=== PATIENT | male | born 1985 | race Caucasian/White ===

== ENCOUNTER 2021-03-12 11:40 | Emergency (ER) | payer OTHER ==
[2021-03-12 11:49] VITALS: TEMP 98
--- NOTE | 2021-03-12 12:28 | XR ---
EXAMINATION TYPE: XR chest 2V DATE OF EXAM: 03/12/2021 COMPARISON: NONE HISTORY: cough x 1 month TECHNIQUE: Single frontal view of the chest is obtained. FINDINGS: Right middle lobe infiltrate noted. Correlate for pneumonia. Follow-up until resolution advised. Lauri tional nodular density left upper lobe versus summation. The cardiac silhouette size is within normal limits. The osseous structures are intact. IMPRESSION: 1. Right middle lobe infiltrate noted. Correlate for pneumonia. Follow-up until resolution advised. Additional nodular density left upper lobe versus summation
--- NOTE | 2021-03-12 13:05 | ED ---
URI HPI - General Chief Complaint: Upper Respiratory Infection Stated Complaint: Cough Time Seen by Provider: 03/12/21 11:53 Source: patient, RN notes reviewed Mode of arrival: ambulatory Limitations: no limitations - History of Present Illness Initial Comments: Patient is a 35-year-old male presenting to the emergency Department with complaints of having a cough over the past 3-4 weeks. He states is not getting any better and he is concerned. Patient states he has been tested for Covid at least 3 times in the past month, they were all negative. He denies any fevers or chills, some mild shortness of breath when his cough gets really bad. At rest he has no shortness of breath. He was a former smoker, quit about a year ago. Denies chest pains, no abdominal pain, no nausea or vomiting. Patient denies any significant congestion, no sore throat, no ear pain. [place], they did not do an x-ray, he has not been treated for this in the past. He has no further complaints. His vitals are stable upon arrival. - Related Data Previous Rx's Medication Instructions Recorded Azithromycin [Zithromax Z-pack (6 0 mg PO DIRECTED #6 tab 03/12/21 tabs)] predniSONE 50 mg PO DAILY 5 Days #5 tab 03/12/21 Allergies Allergy/AdvReac Type Severity Reaction Status Date / Time No Known Allergies Allergy Verified 03/12/21 11:45 Review of Systems ROS Statement: Those systems with pertinent positive or pertinent negative responses have been documented in the HPI. ROS Other: All systems not noted in ROS Statement are negative. Past Medical History Past Medical History: No Reported History History of Any Multi-Drug Resistant Organisms: None Reported Past Surgical History: No Surgical Hx Reported Past Psychological History: Depression Smoking Status: Never smoker Past Alcohol Use History: None Reported Past Drug Use History: None Reported General Exam - General Exam Comments Initial Comments: GENERAL: Patient is well-developed and well-nourished. Patient is nontoxic and in no acute distress. HEAD: Atraumatic, normocephalic. EYES: Pupils equal round and reactive to light, extraocular movements intact, sclera anicteric, conjunctiva are normal. Eyelids were unremarkable. ENT: TMs normal, nares patent, oropharynx clear without exudates. Moist mucous membranes. NECK: Normal range of motion, supple without lymphadenopathy or JVD. LUNGS: Unlabored respirations. Breath sounds clear to auscultation bilaterally and equal. No wheezes rales or rhonchi. Dry cough noted. HEART: Regular rate and rhythm without murmurs, rubs or gallops. ABDOMEN: Soft, nontender, normoactive bowel sounds. No guarding, no rebound. No masses appreciated. : Deferred MUSCULOSKELETAL: Normal extremities with adequate strength and normal range of motion, no pitting or edema. No clubbing or cyanosis. NEUROLOGICAL: Patient is alert and oriented x 3. SKIN: Warm, Dry, normal turgor, no rashes or lesions noted. Limitations: no limitations Course Vital Signs 03/12/21 03/12/21 11:46 12:06 Temperature 98 F Pulse Rate 120 H Respiratory 18 26 H Rate Blood Pressure 105/66 O2 Sat by Pulse 99 Oximetry Medical Decision Making - Medical Decision Making Patient is a 35-year-old male here with a cough for the past 3-4 weeks. He has been tested many times for Covid, they are all negative. His vitals are stable upon arrival, exam is unremarkable. Chest x-ray shows right middle lobe infiltrate, correlate for pneumonia. I discussed these findings with the patient. Patient will be given a prescription for antibiotics, steroids. Here he has an inhaler at home. He will follow up if his symptoms persist. He is in agreement with this plan and care and he is stable for discharge. Disposition Clinical Impression: Pneumonia, Cough Disposition: HOME SELF-CARE Condition: Stable Instructions (If sedation given, give patient instructions): Pneumonia (ED) Additional Instructions: Please return to the Emergency Department if symptoms worsen or any other concerns. Take antibiotics and steroids as prescribed. Use inhaler as needed for shortness of breath or increased cough. Prescriptions: predniSONE 50 mg PO DAILY 5 Days #5 tab Azithromycin [Zithromax Z-pack (6 tabs)] 0 mg PO DIRECTED #6 tab Is patient prescribed a controlled substance at d/c from ED?: No Referrals: None,Stated [Primary Care Provider] - 1-2 days Time of Disposition: 13:05
[2021-03-12 13:06] VITALS: BP 119/76; PULSE 98; RESP 18
== END 2021-03-12 13:12 | disposition home or self-care (01) ==
LOC: EC 11:40
DX: J18.9 Pneumonia, unspecified organism (principal); F32.9 Major depressive disorder, single episode, unspecified; Z87.891 Personal history of nicotine dependence
CPT/HCPCS: 71046; 99284

== ENCOUNTER 2021-03-18 12:37 | Emergency (ER) | payer OTHER ==
[2021-03-18 13:17] VITALS: BP 96/57; PULSE 100; RESP 20; TEMP 99.3
--- NOTE | 2021-03-18 14:27 | XR ---
EXAMINATION TYPE: XR chest 2V DATE OF EXAM: 03/18/2021 COMPARISON: 03/12/2021 HISTORY: 35-year-old male with cough and congestion TECHNIQUE: PA and lateral views FINDINGS: Heart normal size. Aorta and pulmonary vasculature are within normal limits. Focal rounded density le ft upper lobe. Additional smaller vague possible nodular densities right upper lobe. Bandlike patchy density right lower lung masslike improvement. No pleural effusion. IMPRESSION: 1. Residual band like infiltrate right lower lung shows slight improvement from prior. An area of res idual pneumonia not excluded. 2. Possible abnormal nodule in the left upper lobe and possible smaller nodules in the right upper lo be. Correlate for potential atypical fungal or mycobacterial infections. Follow-up with CT after nikki tment.
--- NOTE | 2021-03-18 14:38 | ED ---
URI HPI - General Chief Complaint: Upper Respiratory Infection Stated Complaint: Revisit Cough Time Seen by Provider: 03/18/21 13:42 Source: patient, RN notes reviewed Mode of arrival: ambulatory Limitations: no limitations - History of Present Illness Initial Comments: Patient is a 35-year-old male that presents to the emergency department complaining of residual cough. He notes he was seen approximately a week ago was diagnosed pneumonia and given a Z-Logan and steroids to help with inflammation. Patient notes that he was feeling better on Z-Logan but once he stopped cough came back. He was otherwise well-appearing. He denied any other issues or complaints. He denied chest pain shortness of breath headache nausea vomiting diarrhea constipation fever fatigue chills. - Related Data Previous Rx's Medication Instructions Recorded Azithromycin [Zithromax Z-pack (6 0 mg PO DIRECTED #6 tab 03/12/21 tabs)] predniSONE 50 mg PO DAILY 5 Days #5 tab 03/12/21 Levofloxacin [Levaquin] 750 mg PO DAILY 5 Days #5 tab 03/18/21 Allergies Allergy/AdvReac Type Severity Reaction Status Date / Time No Known Allergies Allergy Verified 03/18/21 13:14 Review of Systems ROS Statement: Those systems with pertinent positive or pertinent negative responses have been documented in the HPI. ROS Other: All systems not noted in ROS Statement are negative. Past Medical History Past Medical History: No Reported History History of Any Multi-Drug Resistant Organisms: None Reported Past Surgical History: No Surgical Hx Reported Past Psychological History: Anxiety, Depression Smoking Status: Never smoker Past Alcohol Use History: None Reported Past Drug Use History: None Reported General Exam Limitations: no limitations General appearance: alert, in no apparent distress Head exam: Present: atraumatic, normocephalic, normal inspection Eye exam: Present: normal appearance, PERRL, EOMI. Absent: scleral icterus, conjunctival injection, periorbital swelling ENT exam: Present: normal exam, mucous membranes moist Neck exam: Present: normal inspection Respiratory exam: Present: normal lung sounds bilaterally. Absent: respiratory distress, wheezes, rales, rhonchi, stridor Cardiovascular Exam: Present: regular rate, normal rhythm, normal heart sounds. Absent: systolic murmur, diastolic murmur, rubs, gallop, clicks GI/Abdominal exam: Present: soft, normal bowel sounds. Absent: distended, tenderness, guarding, rebound, rigid Extremities exam: Present: normal inspection, full ROM, normal capillary refill. Absent: tenderness, pedal edema, joint swelling, calf tenderness Neurological exam: Present: alert, oriented X3 Psychiatric exam: Present: normal affect, normal mood Skin exam: Present: warm, dry, intact, normal color. Absent: rash Course Vital Signs 03/18/21 13:14 Temperature 99.3 F Pulse Rate 100 Respiratory 20 Rate Blood Pressure 96/57 O2 Sat by Pulse 97 Oximetry Medical Decision Making - Medical Decision Making 35-year-old male complaining of residual cough after being treated for pneumonia last week. Chest x-ray ordered. Chest x-ray shows slight improvement of right lower lobe infiltrate. But also shows several suspicious nodules. Patient will be sent more antibiotics to pharmacy. Case discussed with Dr. Encarnacion, patient can discharge home. - Radiology Data Radiology results: report reviewed, image reviewed Chest x-ray: Residual bandlike infiltrate right lower lobe shows slight improvement from prior. An area of residual pneumonia not excluded. Possible abnormal nodule in the left upper lobe and possible smaller nodules the right upper lobe. Correlate for potential atypical fungal or mycobacterial infections. Follow-up with CT after treatment. Disposition Clinical Impression: Pneumonia Disposition: HOME SELF-CARE Condition: Stable Instructions (If sedation given, give patient instructions): Bacterial Pneumonia (ED) Additional Instructions: Please return to the Emergency Department if symptoms worsen or any other concerns. Follow-up with primary care 1-2 days. Take antibiotics as prescribed until complete. Take [id number] cough medicine as needed. Is patient prescribed a controlled substance at d/c from ED?: No Referrals: None,Stated [Primary Care Provider] - 1-2 days Time of Disposition: 14:38
== END 2021-03-18 15:00 | disposition home or self-care (01) ==
LOC: EC 12:37
DX: J18.9 Pneumonia, unspecified organism (principal); Z79.52 Long term (current) use of systemic steroids
CPT/HCPCS: 71046; 99283

== ENCOUNTER 2021-03-18 22:23 | Inpatient (IN) | payer OTHER ==
[2021-03-18] MEDS ORDERED: SODIUM CHLORIDE 0.9% 1,000 ML IV STA (23:13)
[2021-03-18] MEDS ORDERED: ACETAMINOPHEN TAB 500 MG TAB PO STA (23:14)
--- NOTE | 2021-03-18 23:24 | ED ---
General Adult HPI - General Chief complaint: Upper Respiratory Infection Stated complaint: Revisit SOB, Back Pain Time Seen by Provider: 03/18/21 23:01 Source: patient, RN notes reviewed Mode of arrival: wheelchair Limitations: no limitations - History of Present Illness Initial comments: This a 35-year-old male presents emergency Department chief complaint shortness breath. Patient states started having cough congestion 3-4 weeks ago. Patient states that [place] Patient states he was given some cough suppressants. Patient states he took a course of antibiotics last week for diagnosed pneumonia. Patient seen here again this morning was given from the antibiotics but states throughout the day he had worsening symptoms, increasing shortness of breath, upper back discomfort. Patient states he does have a history IV drug use. Patient denies abdominal pain. No history of cardiac disease no headache or dizziness. Patient did take ibuprofen prior arrival. - Related Data Previous Rx's Medication Instructions Recorded Azithromycin [Zithromax Z-pack (6 0 mg PO DIRECTED #6 tab 03/12/21 tabs)] predniSONE 50 mg PO DAILY 5 Days #5 tab 03/12/21 Levofloxacin [Levaquin] 750 mg PO DAILY 5 Days #5 tab 03/18/21 Allergies Allergy/AdvReac Type Severity Reaction Status Date / Time No Known Allergies Allergy Verified 03/18/21 22:46 Review of Systems ROS Statement: Those systems with pertinent positive or pertinent negative responses have been documented in the HPI. ROS Other: All systems not noted in ROS Statement are negative. Past Medical History Past Medical History: No Reported History History of Any Multi-Drug Resistant Organisms: None Reported Past Surgical History: No Surgical Hx Reported Past Psychological History: Anxiety, Depression Smoking Status: Never smoker Past Alcohol Use History: None Reported Past Drug Use History: None Reported General Exam Limitations: no limitations General appearance: alert, in no apparent distress Head exam: Present: atraumatic, normocephalic, normal inspection Eye exam: Present: normal appearance, PERRL, EOMI. Absent: scleral icterus, conjunctival injection, periorbital swelling ENT exam: Present: normal exam, normal oropharynx, mucous membranes moist, TM's normal bilaterally Neck exam: Present: normal inspection, full ROM. Absent: tenderness, meningismus, lymphadenopathy Respiratory exam: Present: normal lung sounds bilaterally. Absent: respiratory distress, wheezes, rales, rhonchi, stridor Cardiovascular Exam: Present: normal rhythm, tachycardia, normal heart sounds. Absent: systolic murmur, diastolic murmur, rubs, gallop, clicks GI/Abdominal exam: Present: soft, normal bowel sounds. Absent: distended, tenderness, guarding, rebound, rigid Neurological exam: Present: alert Skin exam: Present: diaphoretic Course Vital Signs 03/18/21 22:46 Temperature 100.4 F H Pulse Rate 147 H Respiratory 22 Rate Blood Pressure 120/74 O2 Sat by Pulse 94 L Oximetry Medical Decision Making - Medical Decision Making CT shows evidence of Taking lesion, multifocal pneumonia, concern for possibility of septic emboli. Patient was started on broad-spectrum antibiotics including Unasyn, vancomycin. Patient will be admitted for pulmonary consultation, infectious disease consultation. - Lab Data Result diagrams: 03/18/21 23:27 03/18/21 23:27 Lab Results 03/18/21 03/18/21 03/18/21 Range/Units 23:27 23:27 23:27 WBC 14.7 H (3.8-10.6) k/uL RBC 4.13 L (4.30-5.90) m/uL Hgb 10.4 L (13.0-17.5) gm/dL Hct 32.9 L (39.0-53.0) % MCV 79.8 L (80.0-100.0) fL MCH 25.2 (25.0-35.0) pg MCHC 31.6 (31.0-37.0) g/dL RDW 14.2 (11.5-15.5) % Plt Count 182 (150-450) k/uL MPV 7.9 Neutrophils % 82 % Lymphocytes % 10 % Monocytes % 4 % Eosinophils % 1 % Basophils % 0 % Neutrophils # 12.1 H (1.3-7.7) k/uL Lymphocytes # 1.5 (1.0-4.8) k/uL Monocytes # 0.6 (0-1.0) k/uL Eosinophils # 0.1 (0-0.7) k/uL Basophils # 0.0 (0-0.2) k/uL PT 11.1 (9.0-12.0) sec INR 1.1 (<1.2) APTT 27.1 (22.0-30.0) sec D-Dimer 0.88 H (<0.60) mg/L FEU Sodium 132 L (137-145) mmol/L Potassium 4.4 (3.5-5.1) mmol/L Chloride 98 (98-107) mmol/L Carbon Dioxide 26 (22-30) mmol/L Anion Gap 8 mmol/L BUN 24 H (9-20) mg/dL Creatinine 0.78 (0.66-1.25) mg/dL Est GFR (CKD-EPI)AfAm >90 (>60 ml/min/1.73 sqM) Est GFR (CKD-EPI)NonAf >90 (>60 ml/min/1.73 sqM) Glucose 128 H (74-99) mg/dL Plasma Lactic Acid Ousmane (0.7-2.0) mmol/L Calcium 8.6 (8.4-10.2) mg/dL Magnesium 1.8 (1.6-2.3) mg/dL Total Bilirubin 0.4 (0.2-1.3) mg/dL AST 25 (17-59) U/L ALT 47 (4-49) U/L Alkaline Phosphatase 112 (38-126) U/L Troponin I (0.000-0.034) ng/mL Total Protein 6.4 (6.3-8.2) g/dL Albumin 3.0 L (3.5-5.0) g/dL Coronavirus (PCR) (Not Detectd) 03/18/21 03/18/21 03/18/21 Range/Units 23:27 23:27 23:41 WBC (3.8-10.6) k/uL RBC (4.30-5.90) m/uL Hgb (13.0-17.5) gm/dL Hct (39.0-53.0) % MCV (80.0-100.0) fL MCH (25.0-35.0) pg MCHC (31.0-37.0) g/dL RDW (11.5-15.5) % Plt Count (150-450) k/uL MPV Neutrophils % % Lymphocytes % % Monocytes % % Eosinophils % % Basophils % % Neutrophils # (1.3-7.7) k/uL Lymphocytes # (1.0-4.8) k/uL Monocytes # (0-1.0) k/uL Eosinophils # (0-0.7) k/uL Basophils # (0-0.2) k/uL PT (9.0-12.0) sec INR (<1.2) APTT (22.0-30.0) sec D-Dimer (<0.60) mg/L FEU Sodium (137-145) mmol/L Potassium (3.5-5.1) mmol/L Chloride (98-107) mmol/L Carbon Dioxide (22-30) mmol/L Anion Gap mmol/L BUN (9-20) mg/dL Creatinine (0.66-1.25) mg/dL Est GFR (CKD-EPI)AfAm (>60 ml/min/1.73 sqM) Est GFR (CKD-EPI)NonAf (>60 ml/min/1.73 sqM) Glucose (74-99) mg/dL Plasma Lactic Acid Ousmane 1.4 (0.7-2.0) mmol/L Calcium (8.4-10.2) mg/dL Magnesium (1.6-2.3) mg/dL Total Bilirubin (0.2-1.3) mg/dL AST (17-59) U/L ALT (4-49) U/L Alkaline Phosphatase (38-126) U/L Troponin I <0.012 (0.000-0.034) ng/mL Total Protein (6.3-8.2) g/dL Albumin (3.5-5.0) g/dL Coronavirus (PCR) Not Detected (Not Detectd) Critical Care Time Critical Care Time: Yes Total Critical Care Time: 35 Disposition Clinical Impression: Cavitating mass of lung, Multifocal pneumonia, Failure of outpatient treatment Disposition: ADMITTED IP TO THIS [facility] Condition: Serious Referrals: None,Stated [Primary Care Provider] - 1-2 days
[2021-03-18 23:53] LABS: Basophils % (A) 0 %; Eosinophils # (A) 0.1 k/uL (0-0.7); Eosinophils % (A) 1 %; HCT 32.9 % (39.0-53.0); HGB 10.4 gm/dL (13.0-17.5); Lymphocytes # (A) 1.5 k/uL (1.0-4.8); Lymphocytes % (A) 10 %; MCH 25.2 pg (25.0-35.0); MCHC 31.6 g/dL (31.0-37.0); MCV 79.8 fL (80.0-100.0); Mean Platelet Volume 7.9; Monocytes # (A) 0.6 k/uL (0-1.0); Monocytes % (A) 4 %; Neutrophils # (A) 12.1 k/uL (1.3-7.7); Neutrophils % (A) 82 %; Platelet Count 182 k/uL (150-450); RBC 4.13 m/uL (4.30-5.90); RDW 14.2 % (11.5-15.5); WBC 14.7 k/uL (3.8-10.6)
[2021-03-18 23:59] LABS: ALT 47 U/L (4-49); AST 25 U/L (17-59); African American GFR (CKD) >90 (>60 ml/min/1.73 sqM); Alkaline Phosphatase 112 U/L (38-126); Anion Gap 8 mmol/L; Blood Urea Nitrogen 24 mg/dL (9-20); Calcium 8.6 mg/dL (8.4-10.2); Carbon Dioxide 26 mmol/L (22-30); Chloride 98 mmol/L (98-107); Glucose 128 mg/dL (74-99); Magnesium 1.8 mg/dL (1.6-2.3); Non-African American GFR(CKD) >90 (>60 ml/min/1.73 sqM); Potassium 4.4 mmol/L (3.5-5.1); Sodium 132 mmol/L (137-145); Total Bilirubin 0.4 mg/dL (0.2-1.3); Total Protein 6.4 g/dL (6.3-8.2)
[2021-03-19 00:02] LABS: INR 1.1 (<1.2); Partial Thromboplastin Time 27.1 sec (22.0-30.0); Prothrombin Time 11.1 sec (9.0-12.0)
--- NOTE | 2021-03-19 00:48 | CT ---
EXAMINATION TYPE: CT chest angio for PE DATE OF EXAM: 03/18/2021 COMPARISON: None HISTORY: Pneumonia. SOB/pain. CT DLP: 326.8 mGycm Automated exposure control for dose reduction was used. CONTRAST: Performed with IV Contrast, patient injected with 70ml mL of Isovue 370. There are 3-D post processed images. There is irregular noncalcified 2.4 cm nodular infiltrate in the posterior segment of the left upper lobe adjacent to the major fissure. There is a similar smaller 1.5 cm nodular density in the posterio r aspect right upper lobe. There is 1 cm subpleural nodule lateral aspect of the right upper lobe. Th ere is patchy nodular infiltrate in the right middle lobe some consolidation and atelectasis. There i s a 1 cm cavitating nodule in the left lower lobe adjacent to the diaphragm. There is 1.5 cm cavitati ng nodule left lower lobe adjacent to the diaphragm. There is some patchy airspace infiltrate left lo wer lobe. There is 1 cm cavitating nodule medial aspect left lower lobe. There is no mediastinal adenopathy. There is 1.2 cm pretracheal lymph node. There are no hilar masses . There is normal contrast opacification of the pulmonary arteries. Thoracic spine is intact. There i s no compression fracture. Sternum shows an old healed fracture of the body. Visualized upper abdomin al soft tissues are intact. IMPRESSION: No evidence of pulmonary embolism. Multiple cavitating infiltrates in the upper lobes bilaterally. Airspace infiltrate and atelectasis r ight middle lobe and left lower lobe. I would consider possibilities of multiple septic emboli and metastatic disease.
[2021-03-19] MEDS ORDERED: VANCOMYCIN IV PER PHARMACY 1 EACH MISC MISCELLANE PRN (01:05)
[2021-03-19] MEDS ORDERED: AMPICILLIN-SULBACTAM 3 GM in SODIUM CHLORIDE 0.9% 100 ML IVPB STA (01:05)
[2021-03-19] MEDS ORDERED: ONDANSETRON 4 MG/2 ML VIAL IVP PRN (01:08)
[2021-03-19] MEDS ORDERED: NALOXONE 0.4 MG/ML 1 ML VIAL IV PRN (01:08)
[2021-03-19] MEDS ORDERED: VANCOMYCIN 1,500 MG in SODIUM CHLORIDE 0.9% 250 ML IVPB ONE (01:30)
[2021-03-19] MEDS: SODIUM CHLORIDE 0.9% 1,000 ML IV SCH ×3 (01:54→15:35)
[2021-03-19] MEDS: IBUPROFEN 400 MG TAB PO PRN ×2 (07:22→13:34)
[2021-03-19] MEDS: AMPICILLIN-SULBACTAM 3 GM in SODIUM CHLORIDE 0.9% 100 ML IVPB SCH ×3 (07:23→20:33)
[2021-03-19 10:56] LABS: Hepatitis A Antibody IgM Nonreactive (Nonreactive); Hepatitis B Core IgM Nonreactive (Nonreactive); Hepatitis B Surface Antigen Nonreactive (Nonreactive); Hepatitis C IgG Antibody Reactive (Nonreactive)
[2021-03-19] MEDS: VANCOMYCIN 1,500 MG in SODIUM CHLORIDE 0.9% 250 ML IVPB SCH ×2 (11:34→18:11)
--- NOTE | 2021-03-19 11:54 | P.HPIM ---
History of Present Illness 35-year-old male was admitted for sepsis shortness of breath fever cough with sputum production. Patient was at to drug rehabilitation program patient does have history of IV drug use. Patient had a CT of the chest which showed pos sibility of septic emboli along with the cavitary lesion. Echocardiac exam is being obtained patient is on IV vancomycin at this time patient will also started on Unasyn, infectious disease was consulted blood cultures were obtained sputum cultures will be obtained as well. Patient was tested for hepatitis C at the rehab facility and as per the patient patient is negative for hep C. Patient does have leukocytosis and fever. Patient was also complaining of chest pain in the left back.. CT angios the chest did not show any pulmonary embolism and is secondary to pneumonia. REVIEW OF SYSTEMS: CONSTITUTIONAL: As mentioned interval history HEENT: No recent visual problems or hearing problems. Denied any sore throat. CARDIOVASCULAR: No chest pain, orthopnea, PND, no palpitations, no syncope. PULMONARY: As per HPI GASTROINTESTINAL: No diarrhea, no nausea, no vomiting, no abdominal pain. NEUROLOGICAL: No headaches, no weakness, no numbness. HEMATOLOGICAL: Denies any bleeding or petechiae. GENITOURINARY: Denies any burning micturition, frequency, or urgency. MUSCULOSKELETAL/RHEUMATOLOGICAL: Denies any joint pain, swelling, or any muscle pain. ENDOCRINE: Denies any polyuria or polydipsia. The rest of the 14-point review of systems is negative. PHYSICAL EXAMINATION: GENERAL: The patient is alert and oriented x3, not in any acute distress. Well developed, well nourished. Patient is diaphoretic HEENT: Pupils are round and equally reacting to light. EOMI. No scleral icterus. No conjunctival pallor. Normocephalic, atraumatic. No pharyngeal erythema. No thyromegaly. Significant nasal congestion and URI CARDIOVASCULAR: S1 and S2 present. No murmurs, rubs, or gallops. PULMONARY: Chest is clear to auscultation, no wheezing or crackles. ABDOMEN: Soft, nontender, nondistended, normoactive bowel sounds. No palpable organomegaly. MUSCULOSKELETAL: No joint swelling or deformity. EXTREMITIES: No cyanosis, clubbing, or pedal edema. NEUROLOGICAL: Gross neurological examination did not reveal any focal deficits. SKIN: No rashes. Assessment and plan -Sepsis secondary to possible enteritis and patient does have multiple septic emboli in the lungs along with the cavitary lesion. Can use vancomycin probably Unasyn is not needed but I'll let infectious disease evaluated the patient before this is discontinued. Transthoracic echo cardiac exam was obtained. -Hyponatremia secondary to sepsis continue with IV fluids -History of IV drug use: Patient has been sober for the last 45 days. Patient did have a repeat hepatitis panel and is positive for hep C. -Depression DVT prophylaxis: Ambulation Past Medical History Past Medical History: No Reported History History of Any Multi-Drug Resistant Organisms: None Reported Past Surgical History: No Surgical Hx Reported Past Psychological History: Anxiety, Depression Smoking Status: Never smoker Past Alcohol Use History: None Reported Past Drug Use History: Heroin, IV Drug Use, Marijuana, Methamphetamine Additional Drug Use History / Comment(s): Last drug use 1.5 months ago Medications and Allergies Home Medications Medication Instructions Recorded Confirmed Type Levofloxacin [Levaquin] 750 mg PO DAILY 5 Days #5 tab 03/18/21 03/19/21 Rx Allergies Allergy/AdvReac Type Severity Reaction Status Date / Time No Known Allergies Allergy Verified 03/19/21 06:18 Physical Exam Vitals: Vital Signs Temp Pulse Pulse Resp BP BP Pulse Ox 03/19/21 08:11 97.8 F 86 18 104/55 98 03/19/21 04:01 97.3 F L 73 16 94/59 97 03/19/21 03:10 98.5 F 93 20 117/73 100 03/19/21 01:44 97.4 F L 91 19 100/55 03/18/21 22:46 100.4 F H 147 H 22 120/74 94 L Intake and Output 03/18/21 03/19/21 03/19/21 22:59 06:59 14:59 Intake Total 250 Balance 250 Intake: Intake, IV Titration 250 Amount Vancomycin 1,500 mg In 250 Sodium Chloride 0.9% 250 ml @ 125 mls/hr IVPB Q8H [facility] Rx#:[id number] Other: Weight 77.111 kg 77.111 kg Results CBC & Chem 7: 03/18/21 23:27 03/18/21 23:27 Labs: Abnormal Lab Results - Last 24 Hours (Table) 03/18/21 03/18/21 03/18/21 Range/Units 23:27 23:27 23:27 WBC 14.7 H (3.8-10.6) k/uL RBC 4.13 L (4.30-5.90) m/uL Hgb 10.4 L (13.0-17.5) gm/dL Hct 32.9 L (39.0-53.0) % MCV 79.8 L (80.0-100.0) fL Neutrophils # 12.1 H (1.3-7.7) k/uL D-Dimer 0.88 H (<0.60) mg/L FEU Sodium 132 L (137-145) mmol/L BUN 24 H (9-20) mg/dL Glucose 128 H (74-99) mg/dL Albumin 3.0 L (3.5-5.0) g/dL Hep C IgG Ab (Nonreactive) 03/19/21 Range/Units 01:34 WBC (3.8-10.6) k/uL RBC (4.30-5.90) m/uL Hgb (13.0-17.5) gm/dL Hct (39.0-53.0) % MCV (80.0-100.0) fL Neutrophils # (1.3-7.7) k/uL D-Dimer (<0.60) mg/L FEU Sodium (137-145) mmol/L BUN (9-20) mg/dL Glucose (74-99) mg/dL Albumin (3.5-5.0) g/dL Hep C IgG Ab Reactive A (Nonreactive) Thrombosis Risk Factor Assmnt - Choose All That Apply Any of the Below Risk Factors Present?: No
--- NOTE | 2021-03-19 11:57 | ECHOF ---
Referral Reason:pain, endocarditis MEASUREMENTS -------- HEIGHT: 180.3 cm WEIGHT: 77.1 kg BP: RVIDd: 2.7 cm (< 3.3) IVSd: 0.7 cm (0.6 - 1.1) LVIDd: 4.8 cm (3.9 - 5.3) LVPWd: 1.0 cm (0.6 - 1.1) IVSs: 1.1 cm LVIDs: 3.3 cm LVPWs: 1.6 cm LAESV Index (A-L): 16.82 ml/m Ao Diam: 3.5 cm (2.0 - 3.7) AV Cusp: 2.1 cm (1.5 - 2.6) LA Diam: 3.3 cm (2.7 - 3.8) MV EXCURSION: 15.618 mm (> 18.000) MV EF SLOPE: 131 mm/s (70 - 150) EPSS: 0.7 cm MV E Calvin: 0.69 m/s MV DecT: 198 ms MV A Calvin: 0.59 m/s MV E/A Ratio: 1.17 RAP: 5.00 mmHg RVSP: 21.11 mmHg FINDINGS -------- This was a technically good study. The left ventricular size is normal. Left ventricular wall thickness is normal. Overall left vent ricular systolic function is normal with, an EF between 55 - 60 %. The right ventricle is normal in size. The left atrial size is normal. Normal LA size by volume 22+/-6 ml/m2. The right atrial size is normal. The aortic valve is trileaflet and appears structurally normal. The mitral valve is normal. There is trace mitral regurgitation. The tricuspid valve appears structurally normal. Mild tricuspid regurgitation present. Right vent ricular systolic pressure is normal at < 35 mmHg. There is no pulmonic regurgitation present. The aortic root size is normal. Normal inferior vena cava with normal inspiratory collapse consistent with estimated right atrial pre ssure of 5 mmHg. There is no pericardial effusion. CONCLUSIONS -------- 1. The left ventricular size is normal. 2. Left ventricular wall thickness is normal. 3. Overall left ventricular systolic function is normal with, an EF between 55 - 60 %. 4. There is trace mitral regurgitation. 5. Mild tricuspid regurgitation present. 6. There is no pericardial effusion. RAIL CAR OPERATOR: Alysia Garcia RDCS
[2021-03-19] MEDS: FAMOTIDINE 20 MG TAB PO SCH ×2 (12:58→20:33)
[2021-03-19] MEDS: ACETAMINOPHEN TAB 325 MG TAB PO PRN (15:36)
--- NOTE | 2021-03-19 23:30 | P.CONS ---
History of Present Illness - Reason for Consult Consult date: 03/19/21 cavitatory pneumonia Requesting physician: Harrison Razo - Chief Complaint shortness of breath , cough x 1 month - History of Present Illness History of present illness : Patient is a 35-year-old male with a past medical history sniffing for IV drug abuse however the patient mention he is clean of drugs for about 45 days patient is presenting to the [facility] ER last night for evaluation of increasing shortness of breath and cough in this patient symptom has been going on for about a month however with worsening shortness of breath at the greater presented to hospital patient also have a cough which is moderate intensity with minimal sputum production no hemoptysis denies any pleuritic chest pain patient denies any nausea vomiting no choking on food no abdominal pain no diarrhea patient currently not have any skin lesion or any joint swelling on presentation to the hospital patient had fever 100.4 F patient was not hypoxic he did have a white count of 14.7 D-dimer was mildly elevated hep C IgG was positive blood cultures obtained which are currently pending the patient did have a CT angiogram of the chest no evidence of PE however did shows multiple cavitary infiltrates in the upper lobes bilaterally airspace infiltrate atelectasis right middle lobe and lower lobe patient was started on vancomycin and Unasyn and admitted to the hospital infectious disease was consulted for further management patient also have an echocardiogram done completed this morning which did not show any evidence of vegetation Review of system: CONSTITUTIONAL: Positive for weakness along with the fever. EYES: No complaint. ENT: No complaint. RESPIRATORY as per history of present illness. CARDIOVASCULAR: No complaint. GENITOURINARY: No complaint. GASTROINTESTINAL: No complaint. MUSCULOSKELETAL: No complaint. INTEGUMENTARY: No complaint. PSYCHOLOGIC: No complaint. ENDOCRINE: No complaint. NEUROLOGIC: No complaint. Past medical history : Reviewed, documented below Past surgical history : Reviewed, documented below Social history: Reviewed, documented below Medications: Reviewed, as documented below EXAMINATION: Vital sigans= Reviewed and documented below GENERAL DESCRIPTION: Middle-aged male lying in bed, no distress. No tachypnea or accessory muscle of respiration use. HEENT: Shows Pallor , no scleral icterus. Oral mucous membrane is dry. NECK: Trachea central, no thyromegaly. LUNGS: Unlabored breathing. Clear to auscultation anteriorly. No wheeze or crackle. HEART: S1, S2, regular rate and rhythm. ABDOMEN: Soft, no tenderness , guarding or rigidity EXTREMITIES: No edema of feet. SKIN: No rash, no masses palpable. NEUROLOGICAL: The patient is awake, alert, oriented x3, mood and affect normal. LABS AND RADIOLOGY: Reviewed results see below Assessment : Patient presented to hospital with sepsis and respiratory fever elevated white count with evidence of multiple cavitary tree pneumonia on the CT angiogram in this patient who did have a history of IV drug use high clinic suspicious for endocarditis and septic emboli and will need to cover for the strep and staph to the likely pathogen Plan: 1-vancomycin pharmacy to dose with a target trough of 15 while watching kidney function and Vanco trough closely. 2-discontinue Unasyn start the patient cefepime 2 g every 8 hours 3-we will request SRAVAN 4-blood cultures will be followed and check inflammatory markers We will follow on clinical condition and cultures to further adjust medication if needed Thank you for this consultation we will follow the patient along with you Past Medical History Past Medical History: No Reported History History of Any Multi-Drug Resistant Organisms: None Reported Past Surgical History: No Surgical Hx Reported Past Psychological History: Anxiety, Depression Smoking Status: Never smoker Past Alcohol Use History: None Reported Past Drug Use History: Heroin, IV Drug Use, Marijuana, Methamphetamine Additional Drug Use History / Comment(s): Last drug use 1.5 months ago Medications and Allergies Home Medications Medication Instructions Recorded Confirmed Type Levofloxacin [Levaquin] 750 mg PO DAILY 5 Days #5 tab 03/18/21 03/19/21 Rx Allergies Allergy/AdvReac Type Severity Reaction Status Date / Time No Known Allergies Allergy Verified 03/19/21 06:18 Physical Exam Vitals: Vital Signs Temp Pulse Pulse Resp BP BP Pulse Ox 03/19/21 20:00 97.9 F 92 16 97/63 97 03/19/21 14:00 98.2 F 90 18 133/65 98 03/19/21 08:11 97.8 F 86 18 104/55 98 03/19/21 04:01 97.3 F L 73 16 94/59 97 03/19/21 03:10 98.5 F 93 20 117/73 100 03/19/21 01:44 97.4 F L 91 19 100/55 Intake and Output 03/19/21 03/19/21 03/20/21 14:59 22:59 06:59 Other: # Voids 2 Results CBC & Chem 7: 03/18/21 23:27 03/18/21 23:27 Labs: Abnormal Lab Results - Last 24 Hours (Table) 03/18/21 03/18/21 03/18/21 Range/Units 23:27 23:27 23:27 WBC 14.7 H (3.8-10.6) k/uL RBC 4.13 L (4.30-5.90) m/uL Hgb 10.4 L (13.0-17.5) gm/dL Hct 32.9 L (39.0-53.0) % MCV 79.8 L (80.0-100.0) fL Neutrophils # 12.1 H (1.3-7.7) k/uL D-Dimer 0.88 H (<0.60) mg/L FEU Sodium 132 L (137-145) mmol/L BUN 24 H (9-20) mg/dL Glucose 128 H (74-99) mg/dL Albumin 3.0 L (3.5-5.0) g/dL Hep C IgG Ab (Nonreactive) 03/19/21 Range/Units 01:34 WBC (3.8-10.6) k/uL RBC (4.30-5.90) m/uL Hgb (13.0-17.5) gm/dL Hct (39.0-53.0) % MCV (80.0-100.0) fL Neutrophils # (1.3-7.7) k/uL D-Dimer (<0.60) mg/L FEU Sodium (137-145) mmol/L BUN (9-20) mg/dL Glucose (74-99) mg/dL Albumin (3.5-5.0) g/dL Hep C IgG Ab Reactive A (Nonreactive)
[2021-03-20] MEDS: IBUPROFEN 400 MG TAB PO PRN ×3 (00:46→13:27)
[2021-03-20] MEDS: CEFEPIME 2 GM in SODIUM CHLORIDE 0.9% 100 ML IVPB SCH ×4 (00:46→23:35)
[2021-03-20] MEDS: SODIUM CHLORIDE 0.9% 1,000 ML IV SCH ×3 (02:38→10:46)
[2021-03-20] MEDS: VANCOMYCIN 1,500 MG in SODIUM CHLORIDE 0.9% 250 ML IVPB SCH ×2 (02:56→10:45)
[2021-03-20] MEDS: ACETAMINOPHEN TAB 325 MG TAB PO PRN (06:07)
[2021-03-20] MEDS: FAMOTIDINE 20 MG TAB PO SCH ×2 (07:35→19:55)
[2021-03-20] MEDS ORDERED: VANCOMYCIN TROUGH DUE 1 EACH MISC MISCELLANE ONE (10:00)
[2021-03-20 10:25] LABS: African American GFR (CKD) >90 (>60 ml/min/1.73 sqM); Anion Gap 5 mmol/L; Blood Urea Nitrogen 10 mg/dL (9-20); Calcium 8.6 mg/dL (8.4-10.2); Carbon Dioxide 28 mmol/L (22-30); Chloride 101 mmol/L (98-107); Glucose 90 mg/dL (74-99); Non-African American GFR(CKD) >90 (>60 ml/min/1.73 sqM); Potassium 4.5 mmol/L (3.5-5.1); Sodium 134 mmol/L (137-145)
[2021-03-20] MEDS ORDERED: fentaNYL (PF) 50 MCG/ML 2 ML AMP ONE (11:51)
[2021-03-20] MEDS: BENZOCAINE SPRAY 1 CAN MUCOUS MEM ONE ×2 (12:10→12:15)
[2021-03-20] MEDS ORDERED: IV FLUID CONTINUATION 1,000 ML IV ONE (12:12)
--- NOTE | 2021-03-20 12:14 | P.CRDCN ---
History of Present Illness History of present illness: HISTORY OF PRESENTING ILLNESS This is a pleasant 35-year-old male past medical history significant for IV drug use. 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 We have been asked to see in [facility] ultation for SRAVAN. Patient presented to the emergency department with complaints of productive cough, shortness of breath and fever on and off for 1 month. Patient also endorses chills and night sweats. Patient denies any chest pain, lightheadedness, dizziness, palpitations. He denies symptoms of orthopnea PND. He denies any history of coronary artery disease, VA, stroke, diabetes, hypertension, He denies any weight loss. He denies tobacco or alcohol use. He states he last used IV Heroine 50 days ago. Infectious disease was consulted and requesting SRAVAN to rule out endocarditis. DIAGNOSTICS EKG reveals sinus tachycardia, heart rate 143, no significant ST ST-T wave abnormalities. Chest CT report revealed no pulmonary embolism, possibilities of multiple septic emboli and metastatic disease. Multiple cavitating infiltrates in the upper lobes bilaterally. Airspaces infiltrate and atelectasis right middle lobe and left lower lobe. Laboratory reviewed, WBC 14.7, and 110.4, platelets 22, d-dimer 0.8, sodium 134, potassium 4.5, BUN 10, serum creatinine 0.7, troponin negative 1, postive Hep C IgG antibody, blood cultures have been negative growth to date He is currently maintained on IV cefepime and IV vancomycin, Pepcid REVIEW OF SYSTEMS At the time of my exam: CONSTITUTIONAL: +fever +chills. +night sweats CARDIOVASCULAR: Denies chest pain, Positive shortness of breath, Denies orthopnea, PND or palpitations. RESPIRATORY: + cough. GASTROINTESTINAL: Denies abdominal pain, diarrhea, constipation, nausea or vomiting. MUSCULOSKELETAL: Denies myalgias. NEUROLOGIC: Denies numbness, tingling, headacbe or weakness. ENDOCRINE: Denies fatigue, weight change, polydipsia or polyurina. GENITOURINARY: Denies burning, hematuria or urgency with micturation. HEMATOLOGIC: Denies history of anemia or bleeding. PHYSICAL EXAMINATION Blood pressure 109/72, HR 106, temperature 100.2F, CONSTITUTIONAL: No apparent distress. HEENT: Head is normocephalic. Pupils are equal, round. Sclerae anicteric. Mucous membranes of the mouth are moist. No JVD. No carotid bruit. CHEST EXAMINATION: Lungs are clear to auscultation. No chest wall tenderness is noted on palpation or with deep breathing. HEART EXAMINATION: Regular rate and rhythm. S1, S2 heard. No murmurs, gallops or rub. ABDOMEN: Soft, nontender. Positive bowel sounds. EXTREMITIES: 2+ peripheral pulses, no lower extremity edema and no calf tenderness. No palatal petechiae. No splinter hemorrhages on extremities noted. NEUROLOGIC EXAMINATION: Patient is awake, alert and oriented x3. ASSESSMENT IV heroin use Shortness of breath, Fever, Chills, night sweats Sinus tachycardia PLAN We will proceed with SRAVAN today with Dr. Butt, patient is agreeable. I have discussed the risks, benefits and alternative therapies for the above- mentioned procedure and for both sedation/analgesia, as they pertain to this patient. The patient has indicated understanding and acceptance of the risks and procedures discussed. Questions have been answered appropriately and he is agreeable to move forward with the above-stated procedure. Nurse Practitioner note has been reviewed, I agree with a documented findings and plan of care. Patient was seen and examined. Past Medical History Past Medical History: No Reported History History of Any Multi-Drug Resistant Organisms: None Reported Past Surgical History: No Surgical Hx Reported Past Psychological History: Anxiety, Depression Smoking Status: Never smoker Past Alcohol Use History: None Reported Past Drug Use History: Heroin, IV Drug Use, Marijuana, Methamphetamine Additional Drug Use History / Comment(s): Last drug use 1.5 months ago Medications and Allergies Home Medications Medication Instructions Recorded Confirmed Type Levofloxacin [Levaquin] 750 mg PO DAILY 5 Days #5 tab 03/18/21 03/19/21 Rx Allergies Allergy/AdvReac Type Severity Reaction Status Date / Time No Known Allergies Allergy Verified 03/19/21 06:18 Physical Exam Vitals: Vital Signs Temp Pulse Resp BP Pulse Ox 03/20/21 08:50 98.6 F 03/20/21 07:42 99.4 F 03/20/21 07:34 106 H 03/20/21 06:12 100.2 F H 106 H 15 109/72 97 03/20/21 02:00 99.2 F 105 H 15 115/64 95 03/19/21 20:00 97.9 F 92 16 97/63 97 03/19/21 14:00 98.2 F 90 18 133/65 98 Intake and Output 03/19/21 03/20/21 03/20/21 22:59 06:59 14:59 Other: # Voids 2 Results 03/18/21 23:27 03/20/21 09:46 Current Medications Generic Name Dose Route Start Last Admin Trade Name Freq PRN Reason Stop Dose Admin Acetaminophen 650 mg 03/19/21 01:08 03/20/21 06:07 Acetaminophen Tab 325 Mg Tab PO 650 mg Q6HR PRN Administration Mild Pain or Fever > 100.5 Famotidine 20 mg 03/19/21 12:00 03/20/21 07:35 Famotidine 20 Mg Tab PO 20 mg BID ESTHER Administration Sodium Chloride 1,000 mls @ 75 mls/hr 03/19/21 01:15 03/20/21 05:10 Saline 0.9% IV 130 mls/hr .[id number] ESTHER Administration Vancomycin HCl 1,500 mg/ 250 mls @ 125 mls/hr 03/19/21 11:00 03/20/21 02:56 Sodium Chloride IVPB 125 mls/hr Q8H ESTHER Administration Cefepime HCl 2 gm/ Sodium 100 mls @ 25 mls/hr 03/20/21 00:00 03/20/21 07:34 Chloride IVPB 25 mls/hr Q8HR ESTHER Administration Ibuprofen 400 mg 03/19/21 01:08 03/20/21 07:34 Ibuprofen 400 Mg Tab PO 400 mg Q6HR PRN Administration Mild Pain or Fever > 100.5 Miscellaneous Information 0 each 03/20/21 10:00 Vancomycin Trough Due 1 Each Misc MISCELLANE 03/20/21 10:01 DIRECTED ONE Naloxone HCl 0.2 mg 03/19/21 01:08 Naloxone 0.4 Mg/Ml 1 Ml Vial IV Q2M PRN Opioid Reversal Ondansetron HCl 4 mg 03/19/21 01:08 Ondansetron 4 Mg/2 Ml Vial IVP Q8HR PRN Nausea And Vomiting Intake and Output 03/19/21 03/20/21 03/20/21 22:59 06:59 14:59 Other: # Voids 2 03/18/21 23:27 03/18/21 23:27
[2021-03-20] MEDS: fentaNYL (PF) 50 MCG/ML 2 ML AMP IVP ONE ×2 (12:15→12:20)
[2021-03-20] MEDS ORDERED: MIDAZOLAM 2 MG/2 ML VIAL IVP ONE ×3 (12:15→12:24)
[2021-03-20] MEDS ORDERED: PROPOFOL 10 MG/ML 20 ML VIAL IV ONE (12:30)
--- NOTE | 2021-03-20 12:59 | P.PCN ---
Date of Procedure: 03/20/21 Operative Findings: TRANSESOPHAGEAL ECHOCARDIOGRAM TAILINGS MAN: BABITA MEDINA MD, RPVI INDICATION: Rule out infective endocarditis SEDATION: Initially we tried with conscious sedation but the patient was agitated and finally we finished the procedure using propofol with PUBLIC SAFETY OFFICER in the room COMPLICATION: None PROCEDURE DESCRIPTION: After obtaining an informed consent, the patient was brought to transesophageal echocardiogram room. Pulse oximetry and heart monitors were attached to the patient. The patient throat was sprayed using lidocaine. The patient was turned into left lateral position. After that a bite guard was placed. After an appropriate conscious sedation was initiated, but was not enough we called anesthesia and PUBLIC SAFETY OFFICER came in and started the patient on propofol. the transesophageal echocardiogram was advanced through a bite guard into the mid esophagus. A 2-D echocardiogram images, color Doppler images, continuous wave images, pulse-wave images, of various cardiac structure were performed. After that the transesophageal echocardiogram probe was advanced into the stomach and fixed to obtain transgastric view was. The probe was brought into the mid esophagus. Inter-atrial septum was interrogated using 2D images, color Doppler images, and then contrast study. After that transesophageal echocardiogram was withdrawn out and upon withdrawing the descending thoracic aorta all the way up to the arch was evaluated. FINDING: The left ventricular dimension and systolic function appeared to be within normal limits. The right ventricle and right atrium appears to be dilated The interatrial septum appeared to be intact The left atrial appendage appeared to be intact The aortic valve is trileaflet valve without stenosis or regurgitation The mitral valve appears to be normal without evidence of infective endocarditis The tricuspid valve appeared to be infected was evidence of vegetation involving the anterior and posterior leaflets with evidence of perforation and severe tricuspid regurgitation No evidence of pericardial effusion identified CONCLUSION: #1 Right sided infective endocarditis with evidence of vegetation involving the anterior and posterior tricuspid leaflets with evidence of perforation and severe tricuspid regurgitation. No evidence of abscess #2 The pulmonic valve appears to be intact with only mild pulmonic insufficiency and without any evidence of infective endocarditis #3 The aortic valve appeared to be trileaflet valve without stenosis or regurgitation and appeared to be intact without any evidence of endocarditis #4 The mitral valve appeared to be also intact without any evidence of infective endocarditis #5 Normal left ventricular dimension and systolic function #6 Dilated right ventricle with a normal function #7 Intact interatrial septum #8 Normal left atrial appendage #9 No evidence of pericardial effusion
[2021-03-20] MEDS ORDERED: KETOROLAC 15 MG/ML 1 ML VIAL IVP SCH (13:45)
--- NOTE | 2021-03-20 14:12 | P.PN ---
Subjective 35-year-old male was admitted for sepsis shortness of breath fever cough with sputum production. Patient was at to drug rehabilitation program patient does have history of IV drug use. Patient had a CT of the chest which showed possibility of septic emboli along with the cavitary lesion. Echocardiac exam is being obtained patient is on IV vancomycin at this time patient will also started on Unasyn, infectious disease was consulted blood cultures were obtained sputum cultures will be obtained as well. Patient was tested for hepatitis C at the rehab facility and as per the patient patient is negative for hep C. Patient does have leukocytosis and fever. Patient was also complaining of chest pain in the left back.. CT angios the chest did not show any pulmonary embolism and is secondary to pneumonia. 03/20/2021 Patient can use to have fevers, white blood cell count is pending serum sodium did improve. Patient the pleuritic chest pain secondary to pneumonia improved. Patient had a transesophageal echocardiogram asked transthoracic echocardiogram is within normal limits which showed a perforated tricuspid valve with the sever e tricuspid regurgitation and vegetations and anterior and posterior leaflets. Cardiology according transfer to a higher level facility for evaluation with cardiac thoracic surgery. Constitutional: He has fever. Overall feels bit better Cardio vascular: She has chest pain although overall feels better Gastrointestinal denied any nausea vomiting Pulmonary: Denied any shortness of breath cough Neurologic denied any new focal deficits All inpatient medications were reviewed and appropriate changes in these medications as dictated in the interval history and assessment and plan. PHYSICAL EXAMINATION: GENERAL: The patient is alert and oriented x3, not in any acute distress. Well developed, well nourished. Patient is diaphoretic HEENT: Pupils are round and equally reacting to light. EOMI. No scleral icterus. No conjunctival pallor. Normocephalic, atraumatic. No pharyngeal erythema. No thyromegaly. Significant nasal congestion and URI CARDIOVASCULAR: S1 and S2 present. No murmurs, rubs, or gallops. PULMONARY: Chest is clear to auscultation, no wheezing or crackles. ABDOMEN: Soft, nontender, nondistended, normoactive bowel sounds. No palpable organomegaly. MUSCULOSKELETAL: No joint swelling or deformity. EXTREMITIES: No cyanosis, clubbing, or pedal edema. NEUROLOGICAL: Gross neurological examination did not reveal any focal deficits. SKIN: No rashes. Assessment and plan -Sepsis secondary to endocarditis and patient does have multiple septic emboli in the lungs along with the cavitary lesion. Patient had a normal TTE and SRAVAN significant for tricuspid valve rupture with vegetations on the tricuspid valve. So far cultures are negative. -History of hepatitis C from IV drug use -Hyponatremia secondary to sepsis continue with IV fluids, improving -History of IV drug use: Patient has been sober for the last 45 days. Positive for hep C -Depression DVT prophylaxis: Ambulation Objective - Vital Signs Vital signs: Vital Signs Temp 98.6 F 03/20/21 08:50 Pulse 82 03/20/21 12:45 Resp 16 03/20/21 12:45 BP 87/53 03/20/21 12:40 Pulse Ox 97 03/20/21 12:45 Intake & Output 03/19/21 03/20/21 03/20/21 18:59 06:59 18:59 Intake Total 200 Balance 200 Intake: IV 200 Other: # Voids 2 2 - Labs CBC & Chem 7: 03/18/21 23:27 03/20/21 09:46 Labs: Abnormal Lab Results - Last 24 Hours (Table) 03/20/21 03/20/21 Range/Units 07:29 09:46 Sodium 134 L (137-145) mmol/L C-Reactive Protein 14.50 H (0.00-0.80) mg/dL Microbiology - Last 24 Hours (Table) 03/18/21 23:41 Blood Culture - Preliminary Blood No Growth after 24 hours 03/18/21 23:27 Blood Culture - Preliminary Blood No Growth after 24 hours
--- NOTE | 2021-03-20 14:24 | P.DS ---
Providers Date of admission: 03/19/21 01:08 Attending physician: Laura Gongora Consults: 03/19/21 01:09 Consult Physician Urgent Consulting Provider: Meeta Enriquez Consult Reason/Comments: Cavitating pneumonia Do you want consulting provider notified?: Yes 03/20/21 10:11 Consult Physician Routine Consulting Provider: [facility] Consult Reason/Comments: endocarditis septic emboli Do you want consulting provider notified?: Already Contacted Primary care physician: Stated None Hospital Course: 35-year-old male was admitted for sepsis shortness of breath fever cough with sputum production. Patient was at to drug rehabilitation program patient does have history of IV drug use. Patient had a CT of the chest which showed possibility of septic emboli along with the cavitary lesion. Echocardiac exam is being obtained patient is on IV vancomycin at this time patient will also started on Unasyn, infectious disease was consulted blood cultures were obtained sputum cultures will be obtained as well. Patient was tested for hepatitis C at the rehab facility and as per the patient patient is negative for hep C. Patient does have leukocytosis and fever. Patient was also complaining of chest pain in the left back.. CT angios the chest did not show any pulmonary embolism and is secondary to pneumonia. 03/20/2021 Patient can use to have fevers, white blood cell count is pending serum sodium did improve. Patient the pleuritic chest pain secondary to pneumonia improved. Patient had a transesophageal echocardiogram asked transthoracic echocardiogram is within normal limits which showed a perforated tricuspid valve with the severe tricuspid regurgitation and vegetations and anterior and posterior leaflets. Cardiology according transfer to a higher level facility for eval uation with cardiac thoracic surgery. Constitutional: He has fever. Overall feels bit better Cardio vascular: She has chest pain although overall feels better Gastrointestinal denied any nausea vom iting Pulmonary: Denied any shortness of breath cough Neurologic denied any new focal deficits All inpatient medications were reviewed and appropriate changes in these medications as dictated in the interval history and assessment and plan. PHYSICAL EXAMINATION: GENERAL: The patient is alert and oriented x3, not in any acute distress. Well developed, well nourished. Patient is diaphoretic HEENT: Pupils are round and equally reacting to light. EOMI. No scleral icterus. No conjunctival pallor. Normocephalic, atraumatic. No pharyngeal erythema. No thyromegaly. Significant nasal congestion and URI CARDIOVASCULAR: S1 and S2 present. No murmurs, rubs, or gallops. PULMONARY: Chest is clear to auscultation, no wheezing or crackles. ABDOMEN: Soft, nontender, nondistended, normoactive bowel sounds. No palpable organomegaly. MUSCULOSKELETAL: No joint swelling or deformity. EXTREMITIES: No cyanosis, clubbing, or pedal edema. NEUROLOGICAL: Gross neurological examination did not reveal any focal deficits. SKIN: No rashes. Assessment and plan -Sepsis secondary to endocarditis and patient does have multiple septic emboli in the lungs along with the cavitary lesion. Patient is presently on IV vancomycin and IV cefepime as recommended by infectious disease. Patient had a normal TTE and SRAVAN significant for tricuspid valve rupture with vegetations on the tricuspid valve. So far cultures are negative. -History of hepatitis C from IV drug use -Hyponatremia secondary to sepsis continue with IV fluids, improving -History of IV drug use: Patient has been sober for the last 45 days. Positive for hep C -Depression DVT prophylaxis: Ambulation Patient Condition at Discharge: Serious Plan - Discharge Summary Discharge Rx Participant: No New Discharge Prescriptions: No Action Levofloxacin [Levaquin] 750 mg PO DAILY 5 Days #5 tab Discharge Medication List Levofloxacin [Levaquin] 750 mg PO DAILY 5 Days #5 tab 03/18/21 [Rx] Follow up Appointment(s)/Referral(s): None,Stated [Primary Care Provider] - 1-2 days Activity/Diet/Wound Care/Special Instructions: *Please call [facility] at discharge if patient is unable to find a ride home - [phone].
[2021-03-20] MEDS: VANCOMYCIN 1,250 MG in SODIUM CHLORIDE 0.9% 250 ML IVPB SCH ×2 (18:21→23:36)
--- NOTE | 2021-03-20 18:29 | PN ---
PROGRESS NOTE DATE OF SERVICE: 03/20/2021 REASON FOR FOLLOWUP: INTERVAL HISTORY: Patient is afebrile. The patient is status post SRAVAN with evidence of and possible . Patient denies having any chest pain. Breathing slightly comfortably. Did have a cough, not bringing up any sputum. No abdominal pain or diarrhea. PHYSICAL EXAMINATION: Blood pressure is 115/70 with a pulse of 102. Temperature 98.8. He is 97% on room air. General description is a middle-aged male lying in bed in no distress. Respiratory system: Unlabored breathing, clear to auscultation anteriorly. Heart S1, S2. Regular rate and rhythm. Abdomen soft, no tenderness. Extremities: No edema of the feet. LABS: 73, creatinine 0.76. Blood culture so far negative. DIAGNOSTIC IMPRESSION AND PLAN: Patient admitted to the hospital with shortness of breath and cough with evidence of multiple septic emboli with evidence of wall vegetation. Cardiology has recommended the patient to be transferred to tertiary care as the patient may need CT surgery evaluation and possible surgery for the wall. Continue with vancomycin and cefepime while waiting for the culture to finalize. Prognosis is guarded. He did have multiple questions, those were answered in layman's terms. MMODL / IJN: [id number] /
[2021-03-20] MEDS: KETOROLAC 15 MG/ML 1 ML VIAL IVP PRN (19:55)
[2021-03-20 20:04] LABS: HIV 2 AB Non-Reactive (Non-Reactive); HIV AB P24 Non-Reactive (Non-Reactive); HIV P24 AG Non-Reactive (Non-Reactive)
[2021-03-21] MEDS: ACETAMINOPHEN TAB 325 MG TAB PO PRN ×2 (01:09→15:52)
[2021-03-21] MEDS: KETOROLAC 15 MG/ML 1 ML VIAL IVP PRN ×3 (05:36→18:09)
[2021-03-21] MEDS: VANCOMYCIN 1,250 MG in SODIUM CHLORIDE 0.9% 250 ML IVPB SCH (05:37)
[2021-03-21] MEDS: SODIUM CHLORIDE 0.9% 1,000 ML IV SCH ×2 (06:21→21:43)
[2021-03-21] MEDS: FAMOTIDINE 20 MG TAB PO SCH ×2 (08:05→21:42)
[2021-03-21] MEDS: CEFEPIME 2 GM in SODIUM CHLORIDE 0.9% 100 ML IVPB SCH ×2 (09:02→15:52)
[2021-03-21 09:08] LABS: HCT 28.3 % (39.6-50.0); HGB 8.6 g/dL (13.0-17.0); MCH 24.3 pg (27.0-32.0); MCHC 30.4 g/dL (32.0-37.0); MCV 79.9 fL (80.0-97.0); Platelet Count 264 X 10*3/uL (140-440); RBC 3.54 X 10*6/uL (4.40-5.60); WBC 15.67 X 10*3/uL (4.50-10.00)
[2021-03-21] MEDS ORDERED: VANCOMYCIN TROUGH DUE 1 EACH MISC MISCELLANE ONE (11:00)
[2021-03-21 13:45] LABS: African American GFR (CKD) 112.5 (60.0-200.0); BUN/Creat Ratio 11.9 Ratio (12.00-20.00); Blood Urea Nitrogen 11.9 mg/dL (9.0-27.0); Non-African American GFR(CKD) 97.1 (60.0-200.0); Potassium 4.1 mmol/L (3.5-5.5)
[2021-03-21] MEDS: VANCOMYCIN 1,500 MG in SODIUM CHLORIDE 0.9% 250 ML IVPB SCH (15:52)
--- NOTE | 2021-03-21 16:35 | PN ---
PROGRESS NOTE DATE OF SERVICE: 03/21/2021 REASON FOR FOLLOWUP: Septic emboli and tricuspid wall endocarditis. INTERVAL HISTORY: Patient did spike a fever of 103 around midnight. The patient is afebrile since then. The patient is breathing comfortably. Patient denies having any chest pain. No worsening cough or sputum production. No abdominal pain or diarrhea. PHYSICAL EXAMINATION: Blood pressure 130/71, pulse 106, temperature 98.3. He is 96% on room air. General description is a middle-aged male lying in bed in no distress. Respiratory system: Unlabored breathing, decreased intensity of breath sounds. No wheeze. Heart S1, S2. Regular rate. Abdomen soft, no tenderness. LABS: Hemoglobin 8.8, white count 15.67, creatinine 1.0. Blood culture so far negative. Sputum is pending. DIAGNOSTIC IMPRESSION AND PLAN: Patient with tricuspid wall endocarditis with septic emboli, Cardiology recommending the patient to be transferred to tertiary care, waiting for the transfer. Patient is covered with vancomycin, cefepime, adjusting further based on culture report and clinical response. Continue supportive care. MMODL / IJN: [id number] /
--- NOTE | 2021-03-21 20:13 | P.PN ---
Subjective HISTORY OF PRESENTING ILLNESS This is a pleasant 35-year-old male past medical history significant for IV drug use. 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 We have been asked to see in consultation for SRAVAN. Patient presented to the emergency department with complaints of productive cough, shortness of breath and fever on and off for 1 month. Patient also endorses chills and night sweats. Patient denies any chest pain, lightheadedness, dizziness, palpitations. He denies symptoms of orthopnea PND. He denies any history of coronary artery disease, OR, stroke, diabetes, hypertension, He denies any weight loss. He denies tobacco or alcohol use. He states he last used IV Heroine 50 days ago. Infectious disease was consulted and requesting SRAVAN to rule out endocarditis. DIAGNOSTICS EKG reveals sinus tachycardia, heart rate 143, no significant ST ST-T wave abnormalities. Chest CT report revealed no pulmonary embolism, possibilities of multiple septic emboli and metastatic disease. Multiple cavitating infiltrates in the upper lobes bilaterally. Airspaces infiltrate and atelectasis right middle lobe and left lower lobe. Laboratory reviewed, WBC 14.7, and 110.4, platelets 22, d-dimer 0.8, sodium 134, potassium 4.5, BUN 10, serum creatinine 0.7, troponin negative 1, postive Hep C IgG antibody, blood cultures have been negative growth to date He is currently maintained on IV cefepime and IV vancomycin, Pepcid 03/21 Patient seen and examined. Patient underwent SRAVAN yesterday showing endocarditis. Denies any chest pain or pressure. No shortness breath. Mild cough. +fever overnight PHYSICAL EXAMINATION Vital Signs reviewed CONSTITUTIONAL: No apparent distress. HEENT: Head is normocephalic. Pupils are equal, round. Sclerae anicteric. Mucous membranes of the mouth are moist. No JVD. No carotid bruit. CHEST EXAMINATION: Lungs are clear to auscultation. No chest wall tenderness is noted on palpation or with deep breathing. HEART EXAMINATION: Regular rate and rhythm. S1, S2 heard. No murmurs, gallops or rub. ABDOMEN: Soft, nontender. Positive bowel sounds. EXTREMITIES: 2+ peripheral pulses, no lower extremity edema and no calf tenderness. No palatal petechiae. No splinter hemorrhages on extremities noted. NEUROLOGIC EXAMINATION: Patient is awake, alert and oriented x3. ASSESSMENT IV heroin use Shortness of breath, Fever, Chills, night sweats Sinus tachycardia Endocarditis, no growth from blood cultures at this time PLAN Patient with SRAVAN showing endocarditis and with evidence of vegetation on the ant erior and posterior tricuspid leaflets with perforation and severe tricuspid regurgitation. Patient overall has been tolerating this fairly well however would be reasonable to transfer to a tertiary care center in case patient decompensates. Continue with broad-spectrum antibiotics and await cultures, currently cultures negative. Objective - Vital Signs Vital signs: Vital Signs Temp 98.3 F 03/21/21 14:29 Pulse 106 H 03/21/21 14:29 Resp 18 03/21/21 14:29 BP 130/71 03/21/21 14:29 Pulse Ox 96 03/21/21 14:29 Intake & Output 03/21/21 03/21/21 03/22/21 06:59 18:59 05:59 Intake Total 900 240 Balance 900 240 Intake: Oral 900 240 Other: # Voids 2 2 - Labs CBC & Chem 7: 03/21/21 03:21 03/21/21 03:21 Labs: Abnormal Lab Results - Last 24 Hours (Table) 03/21/21 03/21/21 Range/Units 03:21 03:21 WBC 15.67 H (4.50-10.00) X 10*3/uL RBC 3.54 L (4.40-5.60) X 10*6/uL Hgb 8.6 L (13.0-17.0) g/dL Hct 28.3 L (39.6-50.0) % MCV 79.9 L (80.0-97.0) fL MCH 24.3 L (27.0-32.0) pg MCHC 30.4 L (32.0-37.0) g/dL RDW 15.0 H (11.5-14.5) % Sodium 132 L (135-145) mmol/L Carbon Dioxide 20.0 L (21.6-31.8) mmol/L BUN/Creatinine Ratio 11.90 L (12.00-20.00) Ratio Calcium 8.0 L (8.7-10.3) mg/dL Microbiology - Last 24 Hours (Table) 03/20/21 11:09 Sputum Culture - Preliminary Sputum 03/20/21 07:25 Blood Culture - Preliminary Blood No Growth after 24 hours 03/18/21 23:41 Blood Culture - Preliminary Blood No Growth after 48 hours 03/18/21 23:27 Blood Culture - Preliminary Blood No Growth after 48 hours
--- NOTE | 2021-03-21 21:44 | P.PN ---
Subjective Progress Note Date: 03/21/21 Principal diagnosis: Secondary to endocarditis Mr. Celeste is a 35-year-old male with a past medical history of IV drug abuse admitted to the hospital with a chief complaint of difficulty breathing. Patient was also having fever at the time of admission. Eventually the work-up showed that the patient has endocarditis with multiple septic emboli to the lung. On 03/21/2021-patient is seen and examined at the bedside. Patient denies having any fevers chills or rigors overnight. No cough or difficulty in breathing or hemoptysis. No chest pain or palpitations. No abdominal pain nausea vomiting or diarrhea. No dysuria or hematuria. On reviewing the vitals T-max of 99.5, heart rate 90s 200s, blood pressure 130/71 saturating at 96% on room air. Patient has blood work done showing white count of 15.6, hemoglobin 8.6, platelets 264. Sodium 132, potassium 4.1, chloride 100, bicarb 20, BUN 11, creatinine 1. Patient's medications have been Active Medications Generic Name Dose Route Start Last Admin Trade Name Freq PRN Reason Stop Dose Admin Acetaminophen 650 mg 03/19/21 01:08 03/21/21 15:52 Acetaminophen Tab 325 Mg Tab PO 650 mg Q6HR PRN Administration Mild Pain or Fever > 100.5 Famotidine 20 mg 03/19/21 12:00 03/21/21 08:05 Famotidine 20 Mg Tab PO 20 mg BID ESTHER Administration Sodium Chloride 1,000 mls @ 75 mls/hr 03/19/21 01:15 03/21/21 06:21 Saline 0.9% IV Not Given .[id number] ESTHER Cefepime HCl 2 gm/ Sodium 100 mls @ 25 mls/hr 03/20/21 00:00 03/21/21 15:52 Chloride IVPB 25 mls/hr Q8HR ESTHER Administration Vancomycin HCl 1,500 mg/ 250 mls @ 125 mls/hr 03/21/21 16:00 03/21/21 15:52 Sodium Chloride IVPB 125 mls/hr Q8H ETSHER Administration Ketorolac Tromethamine 15 mg 03/20/21 13:47 03/21/21 18:09 Ketorolac 15 Mg/Ml 1 Ml Vial IVP 03/23/21 13:47 15 mg Q6HR PRN Administration Pain Morphine Sulfate 4 mg 03/20/21 13:33 Morphine Sulfate 4 Mg/Ml Syringe IVP Q6HR PRN Pain Naloxone HCl 0.2 mg 03/19/21 01:08 Naloxone 0.4 Mg/Ml 1 Ml Vial IV Q2M PRN Opioid Reversal Ondansetron HCl 4 mg 03/19/21 01:08 Ondansetron 4 Mg/2 Ml Vial IVP Q8HR PRN Nausea And Vomiting Objective - Vital Signs Vital signs: Vital Signs Temp 98.3 F 03/21/21 14:29 Pulse 106 H 03/21/21 14:29 Resp 18 03/21/21 14:29 BP 130/71 03/21/21 14:29 Pulse Ox 96 03/21/21 14:29 Intake & Output 03/20/21 03/21/21 03/21/21 18:59 06:59 18:59 Intake Total 1280 900 240 Balance 1280 900 240 Intake: IV 200 Oral 1080 900 240 Other: # Voids 2 2 - Exam PHYSICAL EXAMINATION: GENERAL: The patient is alert and oriented x3, not in any acute distress. Well developed, well nourished. HEENT: Pupils are round and equally reacting to light. EOMI. No scleral icterus. No conjunctival pallor. Normocephalic, atraumatic.Significant nasal congestion and URI CARDIOVASCULAR: S1 and S2 present. No murmurs, rubs, or gallops. PULMONARY: Chest is clear to auscultation, no wheezing or crackles. ABDOMEN: Soft, nontender, nondistended, normoactive bowel sounds. No palpable organomegaly. MUSCULOSKELETAL: No joint swelling or deformity. EXTREMITIES: No cyanosis, clubbing, or pedal edema. NEUROLOGICAL: Gross neurological examination did not reveal any focal deficits. SKIN: No rashes. - Labs CBC & Chem 7: 03/21/21 03:21 03/21/21 03:21 Labs: Abnormal Lab Results - Last 24 Hours (Table) 03/20/21 03/21/21 03/21/21 Range/Units 07:29 03:21 03:21 WBC 15.67 H (4.50-10.00) X 10*3/uL RBC 3.54 L (4.40-5.60) X 10*6/uL Hgb 8.6 L (13.0-17.0) g/dL Hct 28.3 L (39.6-50.0) % MCV 79.9 L (80.0-97.0) fL MCH 24.3 L (27.0-32.0) pg MCHC 30.4 L (32.0-37.0) g/dL RDW 15.0 H (11.5-14.5) % ESR 73 H (0-15) mm/Hr Sodium 132 L (135-145) mmol/L Carbon Dioxide 20.0 L (21.6-31.8) mmol/L BUN/Creatinine Ratio 11.90 L (12.00-20.00) Ratio Calcium 8.0 L (8.7-10.3) mg/dL Microbiology - Last 24 Hours (Table) 03/20/21 11:09 Sputum Culture - Preliminary Sputum 03/20/21 07:25 Blood Culture - Preliminary Blood No Growth after 24 hours 03/18/21 23:41 Blood Culture - Preliminary Blood No Growth after 48 hours 03/18/21 23:27 Blood Culture - Preliminary Blood No Growth after 48 hours Assessment and Plan Assessment: ASSESSMENT Sepsis secondary to endocarditis with multiple septic emboli to the lungs with cavitary lesions Tricuspid valve regurgitation with vegetation on tricuspid valve History of hepatitis C History of IV drug abuse Hyponatremia resolving Depression PLAN: Patient to be continued on IV vancomycin and as per MONSE Enriquez's recommendation. Multiple consultants have evaluated the patient and recommended transfer to tertiary care facility. According to cardiology, he needs higher level facility for evaluation by cardiothoracic surgery, and patient has been accepted by [facility], awaiting a bed placement. Overall prognosis remains very guarded.
[2021-03-22] MEDS: KETOROLAC 15 MG/ML 1 ML VIAL IVP PRN ×3 (01:29→21:50)
[2021-03-22] MEDS: CEFEPIME 2 GM in SODIUM CHLORIDE 0.9% 100 ML IVPB SCH ×4 (01:38→23:05)
[2021-03-22] MEDS: VANCOMYCIN 1,500 MG in SODIUM CHLORIDE 0.9% 250 ML IVPB SCH ×3 (01:38→16:20)
[2021-03-22] MEDS: SODIUM CHLORIDE 0.9% 1,000 ML IV SCH ×2 (01:38→23:34)
[2021-03-22] MEDS: FAMOTIDINE 20 MG TAB PO SCH ×2 (07:43→21:49)
[2021-03-22] MEDS: ACETAMINOPHEN TAB 325 MG TAB PO PRN ×2 (09:28→19:59)
[2021-03-22 12:38] LABS: Basophils # (A) 0.04 X 10*3/uL (0.00-0.10); Basophils % (A) 0.3 %; Eosinophils # (A) 0.24 X 10*3/uL (0.04-0.35); Eosinophils % (A) 1.7 %; HCT 25.6 % (39.6-50.0); HGB 7.9 g/dL (13.0-17.0); Lymphocytes # (A) 3.07 X 10*3/uL (0.90-5.00); Lymphocytes % (A) 22.3 %; MCH 24.2 pg (27.0-32.0); MCHC 30.9 g/dL (32.0-37.0); MCV 78.5 fL (80.0-97.0); Mean Platelet Volume 10.4 fL (9.5-12.2); Monocytes % (A) 7.3 %; Neutrophils # (A) 9.25 X 10*3/uL (1.80-7.70); Neutrophils % (A) 67.3 %; Platelet Count 283 X 10*3/uL (140-440); RBC 3.26 X 10*6/uL (4.40-5.60); RDW 15.2 % (11.5-14.5); WBC 13.75 X 10*3/uL (4.50-10.00)
[2021-03-22 12:55] LABS: Anion Gap 9.7 mmol/L (4.00-12.00); BUN/Creat Ratio 11.13 Ratio (12.00-20.00); Blood Urea Nitrogen 8.9 mg/dL (9.0-27.0); Carbon Dioxide 22.3 mmol/L (21.6-31.8); Potassium 4.2 mmol/L (3.5-5.5)
[2021-03-22 12:56] LABS: African American GFR (CKD) 134.1 (60.0-200.0); Calcium 7.9 mg/dL (8.7-10.3); Non-African American GFR(CKD) 115.7 (60.0-200.0)
[2021-03-22] MEDS ORDERED: VANCOMYCIN TROUGH DUE 1 EACH MISC MISCELLANE ONE (15:00)
[2021-03-22] MEDS ORDERED: BENZOCAINE/MENTHOL LOZENG 1 EACH LOZENGE MUCOUS MEM PRN (15:35)
--- NOTE | 2021-03-22 16:38 | P.PN ---
Subjective Progress Note Date: 03/22/21 Principal diagnosis: Secondary to endocarditis Mr. Celeste is a 35-year-old male with a past medical history of IV drug abuse admitted to the hospital with a chief complaint of difficulty breathing. Patient was also having fever at the time of admission. Eventually the work-up showed that the patient has endocarditis with multiple septic emboli to the lung. On 03/21/2021-patient is seen and examined at the bedside. Patient denies having any fevers chills or rigors overnight. No cough or difficulty in breathing or hemoptysis. No chest pain or palpitations. No abdominal pain nausea vomiting or diarrhea. No dysuria or hematuria. On reviewing the vitals T-max of 99.5, heart rate 90s 200s, blood pressure 130/71 saturating at 96% on room air. Patient has blood work done showing white count of 15.6, hemoglobin 8.6, platelets 264. Sodium 132, potassium 4.1, chloride 100, bicarb 20, BUN 11, creatinine 1. On 03/22/2021- patient is seen and examined at the bedside. No acute events reported by nursing staff overnight. Patient denies having any fevers chills or rigors. He says that he has cough, and has streaks of blood on coughing up. Patient denies having any gross hemoptysis. No chest pain, palpitations, difficulty in breathing. He denies having any hematuria or dysuria. On reviewing the patient's vitals temperature max 100.8, heart rate 100s, respiratory rate 18, blood pressure 126/70 saturating at 96% on room air. Patient's labs have been reviewed white count of 13.7, hemoglobin 7.9, platelets 283. Sodium 132, potassium 4.2, chloride 100, bicarbonate drip, BUN 8.9, creatinine 0.8. Medications medications have been reviewed Active Medications Acetaminophen (Acetaminophen Tab 325 Mg Tab) 650 mg PO Q6HR PRN PRN Reason: Mild Pain or Fever > 100.5 Last Admin: 03/22/21 09:28 Dose: 650 mg Documented by: Benzocaine/Menthol (Benzocaine/Menthol Lozeng 1 Each Lozenge) 1 each MUCOUS MEM Q4HR PRN PRN Reason: throat irritation Last Admin: 03/22/21 16:21 Dose: 1 each Documented by: Famotidine (Famotidine 20 Mg Tab) 20 mg PO BID [facility] Last Admin: 03/22/21 07:43 Dose: 20 mg Documented by: Sodium Chloride (Saline 0.9%) 1,000 mls @ 75 mls/hr IV .[id number] [facility] Last Admin: 03/22/21 01:38 EDT Dose: 75 mls/hr Documented by: Cefepime HCl 2 gm/ Sodium (Chloride) 100 mls @ 25 mls/hr IVPB Q8HR [facility] Last Admin: 03/22/21 16:20 Dose: 25 mls/hr Documented by: Vancomycin HCl 1,500 mg/ (Sodium Chloride) 250 mls @ 125 mls/hr IVPB Q8H [facility] Last Admin: 03/22/21 16:20 Dose: 125 mls/hr Documented by: Ketorolac Tromethamine (Ketorolac 15 Mg/Ml 1 Ml Vial) 15 mg IVP Q6HR PRN PRN Reason: Pain Stop: 03/23/21 13:47 Last Admin: 03/22/21 15:12 Dose: 15 mg Documented by: Morphine Sulfate (Morphine Sulfate 4 Mg/Ml Syringe) 4 mg IVP Q6HR PRN PRN Reason: Pain Naloxone HCl (Naloxone 0.4 Mg/Ml 1 Ml Vial) 0.2 mg IV Q2M PRN PRN Reason: Opioid Reversal Ondansetron HCl (Ondansetron 4 Mg/2 Ml Vial) 4 mg IVP Q8HR PRN PRN Reason: Nausea And Vomiting Objective - Vital Signs Vital signs: Vital Signs Temp 97.5 F L 03/22/21 14:49 Pulse 70 03/22/21 14:49 Resp 18 03/22/21 14:49 BP 113/69 03/22/21 14:49 Pulse Ox 96 03/22/21 14:49 Intake & Output 03/21/21 03/22/21 03/22/21 19:59 06:59 18:59 Intake Total Balance Intake: Oral Other: # Voids # Bowel Movements - Exam PHYSICAL EXAMINATION: GENERAL: The patient is alert and oriented x3. Sitting comfortably in the bed appears to be no acute distress HEENT: Pupils are round and equally reacting to light. EOMI. No scleral icterus. No conjunctival pallor. Normocephalic, atraumatic. Examination of the throat- mild pharyngeal erythema. No tonsillar hypertrophy. CARDIOVASCULAR: S1 and S2 present. PULMONARY: Chest is clear to auscultation, no wheezing or crackles. ABDOMEN: Soft, nontender, nondistended, normoactive bowel sounds. No palpable organomegaly. MUSCULOSKELETAL: No joint swelling or deformity. EXTREMITIES: No cyanosis, clubbing, or pedal edema. NEUROLOGICAL: Gross neurological examination did not reveal any focal deficits. SKIN: No rashes. - Labs CBC & Chem 7: 03/22/21 07:45 03/22/21 07:45 Labs: Abnormal Lab Results - Last 24 Hours (Table) 03/22/21 03/22/21 Range/Units 07:45 07:45 WBC 13.75 H (4.50-10.00) X 10*3/uL RBC 3.26 L (4.40-5.60) X 10*6/uL Hgb 7.9 L (13.0-17.0) g/dL Hct 25.6 L (39.6-50.0) % MCV 78.5 L (80.0-97.0) fL MCH 24.2 L (27.0-32.0) pg MCHC 30.9 L (32.0-37.0) g/dL RDW 15.2 H (11.5-14.5) % Immature Gran # 0.15 H (0.00-0.04) X 10*3/uL Neutrophils # 9.25 H (1.80-7.70) X 10*3/uL Sodium 132 L (135-145) mmol/L BUN 8.9 L (9.0-27.0) mg/dL BUN/Creatinine Ratio 11.13 L (12.00-20.00) Ratio Glucose 116 H (70-110) mg/dL Calcium 7.9 L (8.7-10.3) mg/dL Microbiology - Last 24 Hours (Table) 03/20/21 07:25 Blood Culture - Preliminary Blood No Growth after 48 hours 03/20/21 11:09 Gram Stain - Preliminary Sputum Sputum Culture - Preliminary 03/18/21 23:41 Blood Culture - Preliminary Blood No Growth after 72 hours 03/18/21 23:27 Blood Culture - Preliminary Blood No Growth after 72 hours Assessment and Plan Assessment: ASSESSMENT Sepsis secondary to endocarditis with multiple septic emboli to the lungs with cavitary lesions Tricuspid valve regurgitation with vegetation on tricuspid valve History of hepatitis C History of IV drug abuse Hyponatremia resolving Depression PLAN: Patient continues to spike fevers and his white count has been hovering around 13-15 K. Patient to be continued on IV vancomycin and as per MONSE Enriquez's recommendation. Multiple consultants have evaluated the patient and recommended transfer to tertiary care facility. According to cardiology, he needs higher level facility for evaluation by cardiothoracic surgery, and zak pandya has been accepted by [facility], awaiting a bed placement. Overall prognosis remains very guarded.
--- NOTE | 2021-03-22 18:35 | P.PN ---
Subjective HISTORY OF PRESENTING ILLNESS This is a pleasant 35-year-old male past medical history significant for IV drug use. 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 We have been asked to see in consultation for SRAVAN. Patient presented to the emergency department with complaints of productive cough, shortness of breath and fever on and off for 1 month. Patient also endorses chills and night sweats. Patient denies any chest pain, lightheadedness, dizziness, palpitations. He denies symptoms of orthopnea PND. He denies any history of coronary artery disease, [place], stroke, diabetes, hypertension, He denies any weight loss. He denies tobacco or alcohol use. He states he last used IV Heroine 50 days ago. Infectious disease was consulted and requesting SRAVAN to rule out endocarditis. DIAGNOSTICS EKG reveals sinus tachycardia, heart rate 143, no significant ST ST-T wave abnormalities. Chest CT report revealed no pulmonary embolism, possibilities of multiple septic emboli and metastatic disease. Multiple cavitating infiltrates in the upper lobes bilaterally. Airspaces infiltrate and atelectasis right middle lobe and left lower lobe. Laboratory reviewed, WBC 14.7, and 110.4, platelets 22, d-dimer 0.8, sodium 134, potassium 4.5, BUN 10, serum creatinine 0.7, troponin negative 1, postive Hep C IgG antibody, blood cultures have been negative growth to date He is currently maintained on IV cefepime and IV vancomycin, Pepcid 03/21 Patient seen and examined. Patient underwent SRAVAN yesterday showing endocarditis. Denies any chest pain or pressure. No shortness breath. Mild cough. +fever overnight 03/22 Patient seen and examined. No growth from blood cultures. Denies any chest pain or pressure. Still some back pain and still significant cough. PHYSICAL EXAMINATION Vital Signs reviewed CONSTITUTIONAL: No apparent distress. HEENT: Head is normocephalic. Pupils are equal, round. Sclerae anicteric. Mucous membranes of the mouth are moist. No JVD. No carotid bruit. CHEST EXAMINATION: Lungs are clear to auscultation. No chest wall tenderness is noted on palpation or with deep breathing. HEART EXAMINATION: Regular rate and rhythm. S1, S2 heard. No murmurs, gallops or rub. ABDOMEN: Soft, nontender. Positive bowel sounds. EXTREMITIES: 2+ peripheral pulses, no lower extremity edema and no calf tenderness. No palatal petechiae. No splinter hemorrhages on extremities noted. NEUROLOGIC EXAMINATION: Patient is awake, alert and oriented x3. ASSESSMENT IV heroin use Shortness of breath, Fever, Chills, night sweats Sinus tachycardia Endocarditis, no growth from blood cultures at this time PLAN Patient with SRAVAN showing endocarditis and with evidence of vegetation on the anterior and posterior tricuspid leaflets with perforation and severe tricuspid regurgitation. Patient overall has been tolerating this fairly well however would be reasonable to transfer to a tertiary care center in case patient decompensates. Continue with broad-spectrum antibiotics and await cultures, currently cultures negative. Continue with supportive care, further recommendations to follow. Objective - Vital Signs Vital signs: Vital Signs Temp 97.5 F L 03/22/21 14:49 Pulse 70 03/22/21 14:49 Resp 18 03/22/21 14:49 BP 113/69 03/22/21 14:49 Pulse Ox 96 03/22/21 14:49 Intake & Output 03/21/21 03/22/21 03/22/21 19:59 06:59 18:59 Intake Total Balance Intake: Oral Other: # Voids 3 # Bowel Movements - Labs CBC & Chem 7: 03/22/21 07:45 03/22/21 07:45 Labs: Abnormal Lab Results - Last 24 Hours (Table) 03/22/21 03/22/21 Range/Units 07:45 07:45 WBC 13.75 H (4.50-10.00) X 10*3/uL RBC 3.26 L (4.40-5.60) X 10*6/uL Hgb 7.9 L (13.0-17.0) g/dL Hct 25.6 L (39.6-50.0) % MCV 78.5 L (80.0-97.0) fL MCH 24.2 L (27.0-32.0) pg MCHC 30.9 L (32.0-37.0) g/dL RDW 15.2 H (11.5-14.5) % Immature Gran # 0.15 H (0.00-0.04) X 10*3/uL Neutrophils # 9.25 H (1.80-7.70) X 10*3/uL Sodium 132 L (135-145) mmol/L BUN 8.9 L (9.0-27.0) mg/dL BUN/Creatinine Ratio 11.13 L (12.00-20.00) Ratio Glucose 116 H (70-110) mg/dL Calcium 7.9 L (8.7-10.3) mg/dL Microbiology - Last 24 Hours (Table) 03/20/21 07:25 Blood Culture - Preliminary Blood No Growth after 48 hours 03/20/21 11:09 Gram Stain - Preliminary Sputum Sputum Culture - Preliminary 03/18/21 23:41 Blood Culture - Preliminary Blood No Growth after 72 hours 03/18/21 23:27 Blood Culture - Preliminary Blood No Growth after 72 hours
--- NOTE | 2021-03-22 22:25 | PN ---
PROGRESS NOTE DATE OF SERVICE: 03/22/2021 REASON FOR FOLLOWUP: Tricuspid valve with septic emboli. INTERVAL HISTORY: The patient did spike a fever this morning of 100.8. The patient has been afebrile since then. The patient is breathing comfortably on room air. Overall feeling better, breathing comfortably. No chest pain or shortness of breath. He did have a cough, not bringing up any sputum. No abdominal pain or diarrhea. PHYSICAL EXAMINATION: Blood pressure 121/76, pulse of 90, temperature 99. He is 99% on room air. General description is a middle-aged male lying in bed in no distress. Respiratory system: Unlabored breathing, decreased intensity of breath sounds. No wheeze. Heart S1, S2. Regular rate and rhythm. Abdomen soft, no tenderness. LABS: Hemoglobin is , white count 13.75. Creatinine 0.8. DIAGNOSTIC IMPRESSION AND PLAN: Patient with multiple septic emboli with evidence of tricuspid vegetation. Waiting for transfer to tertiary care. Patient is covered with vancomycin and cefepime. Continue with supportive care. MMODL / IJN: [id number] /
[2021-03-23] MEDS: VANCOMYCIN 1,750 MG in SODIUM CHLORIDE 0.9% 500 ML 500 ML IVPB SCH ×3 (00:25→15:54)
[2021-03-23] MEDS: ACETAMINOPHEN TAB 325 MG TAB PO PRN ×3 (03:20→20:27)
[2021-03-23] MEDS: SODIUM CHLORIDE 0.9% 1,000 ML IV SCH (04:38)
[2021-03-23] MEDS: CEFEPIME 2 GM in SODIUM CHLORIDE 0.9% 100 ML IVPB SCH ×2 (07:41→15:54)
[2021-03-23] MEDS: FAMOTIDINE 20 MG TAB PO SCH ×2 (07:41→20:27)
--- NOTE | 2021-03-23 10:29 | P.PN ---
Subjective HISTORY OF PRESENTING ILLNESS This is a pleasant 35-year-old male past medical history significant for IV drug use. 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 We have been asked to see in consultation for SRAVAN. Patient presented to the emergency department with complaints of productive cough, shortness of breath and fever on and off for 1 month. Patient also endorses chills and night sweats. Patient denies any chest pain, lightheadedness, dizziness, palpitations. He denies symptoms of orthopnea PND. He denies any history of coronary artery disease, [place], stroke, diabetes, hypertension, He denies any weight loss. He denies tobacco or alcohol use. He states he last used IV Heroine 50 days ago. Infectious disease was consulted and requesting SRAVAN to rule out endocarditis. On 03/20 SRAVAN revealed right-sided infective endocarditis with evidence of vegetation involving the anterior and posterior tricuspid leaflets. And evidence of perforation and severe tricuspid regurgitation. Patient seen at bedside, alert and oriented 3, endorses some back pain and productive cough with yellow sputum. Denies any chest pain, shortness of breath, leg weakness, dizziness. No growth from blood cultures. Patient is currently maintained on IV cefepime and IV vancomycin. PHYSICAL EXAMINATION Vital Signs reviewed CONSTITUTIONAL: No apparent distress. HEENT: Neck Supple. No JVD. CHEST EXAMINATION: Lungs are clear to auscultation. No chest wall tenderness is noted on palpation or with deep breathing. HEART EXAMINATION: Regular rate and rhythm. S1, S2 heard. No murmurs, gallops or rub. ABDOMEN: Soft, nontender. Positive bowel sounds. EXTREMITIES: 2+ peripheral pulses, no lower extremity edema and no calf tenderness. No palatal petechiae. No splinter hemorrhages on extremities noted. NEUROLOGIC EXAMINATION: Patient is awake, alert and oriented x3. ASSESSMENT IV heroin use Shortness of breath, Fever, Chills, night sweats Sinus tachycardia Endocarditis, no growth from blood cultures at this time PLAN Patient with SRAVAN showing endocarditis and with evidence of vegetation on the anterior and posterior tricuspid leaflets with perforation and severe tricuspid regurgitation. Patient overall has been tolerating this fairly well however would be reasonable to transfer to a tertiary care center in case patient decompensates. Continue with broad-spectrum antibiotics and await cultures, currently cultures negative. Continue with supportive care We will follow the patient as needed. Please reach out with any further questions or concerns. Objective - Vital Signs Vital signs: Vital Signs Temp 98.7 F 03/23/21 09:42 Pulse 105 H 03/23/21 09:42 Resp 18 03/23/21 09:42 BP 120/80 03/23/21 09:42 Pulse Ox 96 03/23/21 09:42 Intake & Output 03/22/21 03/23/21 03/23/21 18:59 06:59 18:59 Other: # Voids 3 - Labs CBC & Chem 7: 03/22/21 07:45 03/22/21 07:45 Labs: Abnormal Lab Results - Last 24 Hours (Table) 03/22/21 03/22/21 Range/Units 07:45 07:45 WBC 13.75 H (4.50-10.00) X 10*3/uL RBC 3.26 L (4.40-5.60) X 10*6/uL Hgb 7.9 L (13.0-17.0) g/dL Hct 25.6 L (39.6-50.0) % MCV 78.5 L (80.0-97.0) fL MCH 24.2 L (27.0-32.0) pg MCHC 30.9 L (32.0-37.0) g/dL RDW 15.2 H (11.5-14.5) % Immature Gran # 0.15 H (0.00-0.04) X 10*3/uL Neutrophils # 9.25 H (1.80-7.70) X 10*3/uL Sodium 132 L (135-145) mmol/L BUN 8.9 L (9.0-27.0) mg/dL BUN/Creatinine Ratio 11.13 L (12.00-20.00) Ratio Glucose 116 H (70-110) mg/dL Calcium 7.9 L (8.7-10.3) mg/dL Microbiology - Last 24 Hours (Table) 03/20/21 07:25 Blood Culture - Preliminary Blood No Growth after 72 hours 03/18/21 23:41 Blood Culture - Preliminary Blood No Growth after 96 hours 03/18/21 23:27 Blood Culture - Preliminary Blood No Growth after 96 hours 03/20/21 11:09 Gram Stain - Preliminary Sputum Sputum Culture - Preliminary
--- NOTE | 2021-03-23 14:08 | PN ---
PROGRESS NOTE DATE OF SERVICE: 03/23/2021 REASON FOR FOLLOWUP: Septic emboli and tricuspid valve endocarditis. INTERVAL HISTORY: The patient is afebrile, has been complaining of pain to the posterior lower left chest area. No worsening cough or sputum production. No abdominal pain or diarrhea. PHYSICAL EXAMINATION: Blood pressure 120/80 with a pulse of 105, temperature 98.7. He is 96% on room air. General description is a middle-aged male lying in bed in no distress. Respiratory system: Unlabored breathing, decreased breath sounds at the bases. No wheeze. Heart S1, S2. Regular rate and rhythm. Abdomen soft, no tenderness. LABS: Hemoglobin is , white count 13.7, creatinine 0.8. Blood culture has been negative. DIAGNOSTIC IMPRESSION AND PLAN: Patient with septic emboli with evidence of tricuspid valve endocarditis. Patient is currently waiting for transfer to tertiary care. In view of his pain to the left lower chest, we will obtain a chest x-ray. Continue with the vancomycin and continue supportive care. MMODL / IJN: [id number] /
--- NOTE | 2021-03-23 18:43 | XR ---
EXAMINATION TYPE: XR chest 2V DATE OF EXAM: 03/23/2021 COMPARISON: 03/18/2021 HISTORY: Pneumonia TECHNIQUE: 2 views FINDINGS: There is some patchy linear infiltrate and atelectasis in the lower lung faria bilaterally . Heart size is normal. There is no heart failure. There is no definite pleural effusion. IMPRESSION: There is increasing bilateral patchy pneumonia and atelectasis compared to recent exam. N ormal heart.
--- NOTE | 2021-03-23 23:40 | P.PN ---
Subjective Progress Note Date: 03/23/21 Principal diagnosis: Sepsis secondary to infective endocarditis Mr. Celeste is a 35-year-old male with a past medical history of IV drug abuse admitted to the hospital with a chief complaint of difficulty breathing. Patient was also having fever at the time of admission. Eventually the work-up showed that the patient has endocarditis with multiple septic emboli to the lung. On 03/21/2021-patient is seen and examined at the bedside. Patient denies having any fevers chills or rigors overnight. No cough or difficulty in breathing or hemoptysis. No chest pain or palpitations. No abdominal pain nausea vomiting or diarrhea. No dysuria or hematuria. On reviewing the vitals T-max of 99.5, heart rate 90s 200s, blood pressure 130/71 saturating at 96% on room air. Patient has blood work done showing white count of 15.6, hemoglobin 8.6, platelets 264. Sodium 132, potassium 4.1, chloride 100, bicarb 20, BUN 11, creatinine 1. On 03/22/2021- patient is seen and examined at the bedside. No acute events reported by nursing staff overnight. Patient denies having any fevers chills or rigors. He says that he has cough, and has streaks of blood on coughing up. Patient denies having any gross hemoptysis. No chest pain, palpitations, difficulty in breathing. He denies having any hematuria or dysuria. On reviewing the patient's vitals temperature max 100.8, heart rate 100s, respiratory rate 18, blood pressure 126/70 saturating at 96% on room air. Patient's labs have been reviewed white count of 13.7, hemoglobin 7.9, platelets 283. Sodium 132, potassium 4.2, chloride 100, bicarbonate drip, BUN 8.9, creatinine 0.8. On 03/23/2021 patient is seen and examined at bedside. No acute events reported by nursing staff overnight. Patient has no complaints of chest pain or palpitations. He denied having any cough or difficulty in breathing. No abdominal pain nausea vomiting or diarrhea. He denies having any dizziness or syncopal-like episodes. On reviewing the patient's vitals temperature of 98.7, heart rate between 100s to 110s, respiratory rate 18, blood pressure 120/80 saturating at 96% on room air. On reviewing the patient's labs vancomycin level at 12.7. Patient medications have been reviewed Active Medications Acetaminophen (Acetaminophen Tab 325 Mg Tab) 650 mg PO Q6HR PRN PRN Reason: Mild Pain or Fever > 100.5 Last Admin: 03/23/21 20:27 Dose: 650 mg Documented by: Benzocaine/Menthol (Benzocaine/Menthol Lozeng 1 Each Lozenge) 1 each MUCOUS MEM Q4HR PRN PRN Reason: throat irritation Last Admin: 03/22/21 16:21 Dose: 1 each Documented by: Famotidine (Famotidine 20 Mg Tab) 20 mg PO BID PENDING SALE TO [facility] Last Admin: 03/23/21 20:27 Dose: 20 mg Documented by: Sodium Chloride (Saline 0.9%) 1,000 mls @ 75 mls/hr IV .[id number] PENDING SALE TO [facility] Last Admin: 03/23/21 04:38 Dose: 75 mls/hr Documented by: Cefepime HCl 2 gm/ Sodium (Chloride) 100 mls @ 25 mls/hr IVPB Q8HR PENDING SALE TO [facility] Last Admin: 03/23/21 15:54 Dose: 25 mls/hr Documented by: Vancomycin HCl 1,750 mg/ (Sodium Chloride) 500 mls @ 250 mls/hr IVPB Q8H PENDING SALE TO [facility] Last Admin: 03/23/21 15:54 Dose: 250 mls/hr Documented by: Morphine Sulfate (Morphine Sulfate 4 Mg/Ml Syringe) 4 mg IVP Q6HR PRN PRN Reason: Pain Naloxone HCl (Naloxone 0.4 Mg/Ml 1 Ml Vial) 0.2 mg IV Q2M PRN PRN Reason: Opioid Reversal Ondansetron HCl (Ondansetron 4 Mg/2 Ml Vial) 4 mg IVP Q8HR PRN PRN Reason: Nausea And Vomiting Objective - Vital Signs Vital signs: Vital Signs Temp 98.7 F 03/23/21 09:42 Pulse 105 H 03/23/21 09:42 Resp 18 03/23/21 09:42 BP 120/80 03/23/21 09:42 Pulse Ox 96 03/23/21 09:42 Intake & Output 03/22/21 03/23/21 03/23/21 18:59 06:59 18:59 Other: # Voids 3 - Exam PHYSICAL EXAMINATION: GENERAL: The patient is alert and oriented x3. Sitting comfortably in the bed appears to be no acute distress HEENT: Pupils are round and equally reacting to light. EOMI. No scleral icterus. No conjunctival pallor. CARDIOVASCULAR: S1 and S2 present. PULMONARY: Chest is clear to auscultation, no wheezing or crackles. ABDOMEN: Soft, nontender, nondistended, normoactive bowel sounds. No palpable organomegaly. MUSCULOSKELETAL: No joint swelling or deformity. EXTREMITIES: No cyanosis, clubbing, or pedal edema. NEUROLOGICAL: Gross neurological examination did not reveal any focal deficits. SKIN: No rashes. - Labs CBC & Chem 7: 03/22/21 07:45 03/22/21 07:45 Labs: Microbiology - Last 24 Hours (Table) 03/20/21 11:09 Gram Stain - Final Sputum Sputum Culture - Final 03/20/21 07:25 Blood Culture - Preliminary Blood No Growth after 72 hours 03/18/21 23:41 Blood Culture - Preliminary Blood No Growth after 96 hours 03/18/21 23:27 Blood Culture - Preliminary Blood No Growth after 96 hours Assessment and Plan Assessment: ASSESSMENT Sepsis secondary to endocarditis with multiple septic emboli to the lungs with cavitary lesions Tricuspid valve regurgitation with vegetation on tricuspid valve History of hepatitis C History of IV drug abuse Hyponatremia resolving Depression PLAN: Patient had a chest x-ray done today, showing worsening of bilateral patchy infiltrates. Patient is being continued on vancomycin and cefepime in v iew of infective endocarditis. Multiple consultants including cardiology, ID on board and following the patient. The patient has been accepted by [facility] but has been awaiting up bed for the past 3 days. spout worker on board trying to contact other facilities to see if he can be transferred to another tertiary care facility. Overall prognosis remains highly guarded.
[2021-03-24] MEDS: SODIUM CHLORIDE 0.9% 1,000 ML IV SCH ×2 (00:09→16:51)
[2021-03-24] MEDS: ENOXAPARIN 40 MG/0.4 ML SYRINGE SQ SCH ×2 (00:09→08:22)
[2021-03-24] MEDS: MORPHINE SULFATE 4 MG/ML SYRINGE IVP PRN ×3 (01:42→18:46)
[2021-03-24] MEDS: VANCOMYCIN 1,750 MG in SODIUM CHLORIDE 0.9% 500 ML 500 ML IVPB SCH ×5 (06:04→22:29)
[2021-03-24 08:18] LABS: Basophils % (A) 0 %; Eosinophils # (A) 0.3 k/uL (0-0.7); Eosinophils % (A) 2 %; HCT 28.9 % (39.0-53.0); HGB 9.3 gm/dL (13.0-17.5); Hypochromasia Slight; Lymphocytes # (A) 2.7 k/uL (1.0-4.8); Lymphocytes % (A) 26 %; MCH 25.4 pg (25.0-35.0); MCHC 32.2 g/dL (31.0-37.0); MCV 78.9 fL (80.0-100.0); Mean Platelet Volume 6.7; Monocytes # (A) 0.4 k/uL (0-1.0); Monocytes % (A) 4 %; Neutrophils % (A) 65 %; RBC 3.66 m/uL (4.30-5.90); RDW 14.8 % (11.5-15.5); WBC 10.7 k/uL (3.8-10.6)
[2021-03-24] MEDS: CEFEPIME 2 GM in SODIUM CHLORIDE 0.9% 100 ML IVPB SCH ×4 (08:22→16:46)
[2021-03-24] MEDS: FAMOTIDINE 20 MG TAB PO SCH ×2 (08:22→22:29)
[2021-03-24 08:29] LABS: African American GFR (CKD) >90 (>60 ml/min/1.73 sqM); Anion Gap 8 mmol/L; Blood Urea Nitrogen 5 mg/dL (9-20); Calcium 8.5 mg/dL (8.4-10.2); Carbon Dioxide 27 mmol/L (22-30); Chloride 98 mmol/L (98-107); Glucose 89 mg/dL (74-99); Non-African American GFR(CKD) >90 (>60 ml/min/1.73 sqM); Potassium 4.5 mmol/L (3.5-5.1); Sodium 133 mmol/L (137-145)
[2021-03-24 08:30] LABS: Platelet Count 426 k/uL (150-450)
[2021-03-24] MEDS: ACETAMINOPHEN TAB 325 MG TAB PO PRN (15:14)
--- NOTE | 2021-03-24 16:18 | P.PN ---
Subjective Progress Note Date: 03/24/21 Sepsis secondary to infective endocarditis Mr. Celeste is a 35-year-old male with a past medical history of IV drug abuse admitted to the hospital with a chief complaint of difficulty breathing. Patient was also having fever at the time of admission. Eventually the work-up showed that the patient has endocarditis with multiple septic emboli to the lung. On 03/21/2021-patient is seen and examined at the bedside. Patient denies having any fevers chills or rigors overnight. No cough or difficulty in breathing or hemoptysis. No chest pain or palpitations. No abdominal pain nausea vomiting or diarrhea. No dysuria or hematuria. On reviewing the vitals T-max of 99.5, heart rate 90s 200s, blood pressure 130/71 saturating at 96% on room air. Patient has blood work done showing white count of 15.6, hemoglobin 8.6, platelets 264. Sodium 132, potassium 4.1, chloride 100, bicarb 20, BUN 11, creatinine 1. On 03/22/2021- patient is seen and examined at the bedside. No acute events reported by nursing staff overnight. Patient denies having any fevers chills or rigors. He says that he has cough, and has streaks of blood on coughing up. Patient denies having any gross hemoptysis. No chest pain, palpitations, difficulty in breathing. He denies having any hematuria or dysuria. On reviewi ng the patient's vitals temperature max 100.8, heart rate 100s, respiratory rate 18, blood pressure 126/70 saturating at 96% on room air. Patient's labs have been reviewed white count of 13.7, hemoglobin 7.9, platelets 283. Sodium 132, potassium 4.2, chloride 100, bicarbonate drip, BUN 8.9, creatinine 0.8. On 03/23/2021 patient is seen and examined at bedside. No acute events reported by nursing staff overnight. Patient has no complaints of chest pain or palpitations. He denied having any cough or difficulty in breathing. No abdominal pain nausea vomiting or diarrhea. He denies having any dizziness or syncopal-like episodes. On reviewing the patient's vitals temperature of 98.7, heart rate between 100s to 110s, respiratory rate 18, blood pressure 120/80 saturating at 96% on room air. On reviewing the patient's labs vancomycin level at 12.7. 03/24/2021 Patient is seen and evaluated in follow-up this morning continues to be closely monitored by cardiology and infectious disease is following as well. Patient is maintained on IV antibiotics in the form of cefepime along with vancomycin. The plan is for possible transfer to tertiary treatment Center at [facility] in case management following closely making daily phone calls awaiting an available bed. Currently today there are no beds available for transfer. Yesterday's chest x-ray reviewed personally shows increasing bilateral patchy pneumonia and atelectasis compared to recent exams with a normal heart with no definite pleural effusion noted. Will add incentive spirometer and continue to monitor closely. Patient is maintained on Lovenox along with gentle IV hydration. Patient is tolerating diet with no reports of nausea or vomiting noted. Blood cultures remain negative. Sputum culture showing normal lynsey. labs: White blood count is 10.7, hemoglobin is 9.3, platelets are 426, sodium is 133, potassium is 4.5, creatinine is 0.67, calcium is 8.5 Review of systems: Constitutional: No reports of fatigue, fever, or chills Cardiovascular: No reports of chest pain or palpitations Respiratory: No reports of shortness of breath or cough GI: No reports of nausea, vomiting, or diarrhea : No reports of dysuria or retention Neurovascular: No reports of weakness or numbness All medications have been reviewed Active Medications Acetaminophen (Acetaminophen Tab 325 Mg Tab) 650 mg PO Q6HR PRN PRN Reason: Mild Pain or Fever > 100.5 Last Admin: 03/24/21 15:14 Dose: 650 mg Documented by: Benzocaine/Menthol (Benzocaine/Menthol Lozeng 1 Each Lozenge) 1 each MUCOUS MEM Q4HR PRN PRN Reason: throat irritation Last Admin: 03/22/21 16:21 Dose: 1 each Documented by: Enoxaparin Sodium (Enoxaparin 40 Mg/0.4 Ml Syringe) 40 mg SQ DAILY [facility] [place] Last Admin: 03/24/21 08:22 Dose: 40 mg Documented by: Famotidine (Famotidine 20 Mg Tab) 20 mg PO BID [facility] Last Admin: 03/24/21 08:22 Dose: 20 mg Documented by: Sodium Chloride (Saline 0.9%) 1,000 mls @ 75 mls/hr IV .[id number] [facility] Last Admin: 03/24/21 00:09 Dose: 75 mls/hr Documented by: Cefepime HCl 2 gm/ Sodium (Chloride) 100 mls @ 25 mls/hr IVPB Q8HR [facility] Last Admin: 03/24/21 08:22 Dose: 25 mls/hr Documented by: Vancomycin HCl 1,750 mg/ (Sodium Chloride) 500 mls @ 250 mls/hr IVPB Q8H [facility] Last Admin: 03/24/21 15:14 Dose: 250 mls/hr Documented by: Miscellaneous Information (Vancomycin Trough Due 1 Each Misc) 0 each MISCELLANE DIRECTED ONE Stop: 03/25/21 06:01 Morphine Sulfate (Morphine Sulfate 4 Mg/Ml Syringe) 4 mg IVP Q6HR PRN PRN Reason: Pain Last Admin: 03/24/21 08:26 Dose: 4 mg Documented by: Naloxone HCl (Naloxone 0.4 Mg/Ml 1 Ml Vial) 0.2 mg IV Q2M PRN PRN Reason: Opioid Reversal Ondansetron HCl (Ondansetron 4 Mg/2 Ml Vial) 4 mg IVP Q8HR PRN PRN Reason: Nausea And Vomiting Physical exam: GENERAL: The patient is alert and oriented x3. Sitting up in bed. Awake, well- developed, well-nourished. Temp is 98.3F, pulse is 101, respirations are 22, blood pressure is 122/64, oxygen saturation is 95% on room air. HEENT: Pupils are round and equally reacting to light. EOMI. No scleral icterus. No conjunctival pallor. CARDIOVASCULAR: S1 and S2 muffled PULMONARY: Manage breath sounds bilaterally with no wheezing or crackles. ABDOMEN: Soft, nontender, nondistended, normoactive bowel sounds. No palpable organomegaly. MUSCULOSKELETAL: No joint swelling or deformity. EXTREMITIES: No cyanosis, clubbing, or pedal edema. NEUROLOGICAL: Gross neurological examination did not reveal any focal deficits. SKIN: No rashes. 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 Patient to be continued on IV vancomycin along with cefepime and infectious disease following closely for infective endocarditis. Cardiology also following closely. Patient continues to await for tertiary treatment Center transfer to [facility] which has been accepted although no beds available. Case management following and continues to evaluate daily for possible bed. Due to multiple complex medical issues prognosis is extremely guarded. Further recommendations to follow based on the clinical course of the patient. Objective - Vital Signs Vital signs: Vital Signs Temp 98.3 F 03/24/21 08:20 Pulse 101 H 03/24/21 08:20 Resp 22 03/24/21 08:20 BP 122/64 03/24/21 08:20 Pulse Ox 95 03/24/21 08:20 Intake & Output 03/23/21 03/24/21 03/24/21 18:59 06:59 18:59 Intake Total 600 2060 600 Balance 600 2060 600 Weight 80 kg Intake: Intake, IV Titration 600 1580 Amount Cefepime 2 gm In Sodium 100 480 Chloride 0.9% 100 ml @ 25 mls/hr IVPB Q8HR [facility] Rx# :[id number] Sodium Chloride 0.9% 1, 600 000 ml @ 75 mls/hr IV . [id number] [facility] Rx#:[id number] Vancomycin 1,750 mg In 500 500 Sodium Chloride 0.9% 500 ml 500 ml @ 250 mls/hr IVPB Q8H [facility] Rx#: [id number] Oral 480 600 Other: # Voids 3 - Labs CBC & Chem 7: 03/24/21 07:47 03/24/21 07:47 Labs: Abnormal Lab Results - Last 24 Hours (Table) 03/24/21 03/24/21 Range/Units 07:47 07:47 WBC 10.7 H (3.8-10.6) k/uL RBC 3.66 L (4.30-5.90) m/uL Hgb 9.3 L (13.0-17.5) gm/dL Hct 28.9 L (39.0-53.0) % MCV 78.9 L (80.0-100.0) fL Sodium 133 L (137-145) mmol/L BUN 5 L (9-20) mg/dL Microbiology - Last 24 Hours (Table) 03/20/21 07:25 Blood Culture - Preliminary Blood No Growth after 96 hours 03/18/21 23:41 Blood Culture - Preliminary Blood No Growth after 120 hours 03/18/21 23:27 Blood Culture - Preliminary Blood No Growth after 120 hours 03/20/21 11:09 Gram Stain - Final Sputum Sputum Culture - Final
--- NOTE | 2021-03-24 23:18 | PN ---
PROGRESS NOTE DATE OF SERVICE: 03/24/2021 REASON FOR FOLLOWUP: Septic emboli and tricuspid valve endocarditis. INTERVAL HISTORY: The patient is afebrile. The patient is currently breathing comfortably. The patient is waiting for transfer to [facility]. No chest pain, shortness of breath or cough. No abdominal pain or diarrhea. PHYSICAL EXAMINATION: Blood pressure 111/62 with a pulse of 82, temperature 98.7. He is 97% on room air. General description is a middle-aged male up in the room in no distress. Respiratory system: Unlabored breathing, decreased intensity of breath sounds. No wheeze. Heart S1, S2. Regular rate and rhythm. Abdomen soft, no tenderness. Extremities no edema of the feet. LABS: Hemoglobin is 9.3, white count 10.7. Creatinine is 0.67. Blood culture has been negative. DIAGNOSTIC IMPRESSION AND PLAN: Patient with septic emboli with evidence of tricuspid valve vegetation and perforated valve leaflet. Waiting for transfer to tertiary care. Patient is covered with vancomycin and cefepime empirically. Monitor his clinical course closely. Continue with supportive care. MMODL / IJN: [id number] /
[2021-03-25] MEDS: CEFEPIME 2 GM in SODIUM CHLORIDE 0.9% 100 ML IVPB SCH ×4 (00:21→23:41)
[2021-03-25] MEDS: MORPHINE SULFATE 4 MG/ML SYRINGE IVP PRN ×4 (00:22→20:33)
[2021-03-25] MEDS: SODIUM CHLORIDE 0.9% 1,000 ML IV SCH ×2 (02:57→14:22)
[2021-03-25] MEDS ORDERED: VANCOMYCIN TROUGH DUE 1 EACH MISC MISCELLANE ONE (06:00)
[2021-03-25 07:37] LABS: Basophils # (A) 0.1 k/uL (0-0.2); Basophils % (A) 1 %; Eosinophils # (A) 0.3 k/uL (0-0.7); Eosinophils % (A) 2 %; HCT 29.5 % (39.0-53.0); HGB 9.1 gm/dL (13.0-17.5); Hypochromasia Slight; Lymphocytes # (A) 2.3 k/uL (1.0-4.8); Lymphocytes % (A) 21 %; MCH 24.7 pg (25.0-35.0); MCHC 30.9 g/dL (31.0-37.0); Mean Platelet Volume 6.8; Monocytes # (A) 0.4 k/uL (0-1.0); Monocytes % (A) 4 %; Neutrophils # (A) 7.8 k/uL (1.3-7.7); Neutrophils % (A) 70 %; Platelet Count 419 k/uL (150-450); RBC 3.69 m/uL (4.30-5.90); RDW 14.7 % (11.5-15.5); WBC 11.1 k/uL (3.8-10.6)
[2021-03-25] MEDS: FAMOTIDINE 20 MG TAB PO SCH ×2 (07:46→19:45)
[2021-03-25] MEDS: ENOXAPARIN 40 MG/0.4 ML SYRINGE SQ SCH (07:46)
[2021-03-25 07:52] LABS: African American GFR (CKD) >90 (>60 ml/min/1.73 sqM); Anion Gap 8 mmol/L; Blood Urea Nitrogen 6 mg/dL (9-20); Calcium 8.9 mg/dL (8.4-10.2); Carbon Dioxide 28 mmol/L (22-30); Chloride 97 mmol/L (98-107); Glucose 91 mg/dL (74-99); Non-African American GFR(CKD) >90 (>60 ml/min/1.73 sqM); Potassium 4.8 mmol/L (3.5-5.1); Sodium 133 mmol/L (137-145)
[2021-03-25 09:29] VITALS: BMI 24.4
[2021-03-25] MEDS: VANCOMYCIN 1,750 MG in SODIUM CHLORIDE 0.9% 500 ML 500 ML IVPB SCH ×3 (10:11→17:55)
--- NOTE | 2021-03-25 14:31 | PN ---
PROGRESS NOTE DATE OF SERVICE: 03/25/2021 REASON FOR FOLLOWUP: septic emboli and tricuspid valve endocarditis. INTERVAL HISTORY: The patient is afebrile, has been breathing comfortably on room air. Denies any chest pain, shortness of breath. Occasional cough. No abdominal pain or diarrhea. PHYSICAL EXAMINATION: Blood pressure 108/55, pulse , temperature 98.1. He is 96% on room air. General description is a middle-aged male up in the bed in no distress. Respiratory system: Unlabored breathing, decreased intensity of breath sounds. No wheeze. Heart S1, S2. Regular rate and rhythm. Abdomen soft. LABS: Hemoglobin is creatinine 0.78. Cultures remain negative. DIAGNOSTIC IMPRESSION AND PLAN: Patient with tricuspid valve endocarditis with septic emboli. Culture remains negative. On empiric vancomycin and cefepime; to continue. Currently waiting for transfer to supportive care. MMODL / IJN: [id number] /
[2021-03-25] MEDS: ACETAMINOPHEN TAB 325 MG TAB PO PRN (19:45)
--- NOTE | 2021-03-26 01:17 | P.PN ---
Subjective Progress Note Date: 03/25/21 Sepsis secondary to infective endocarditis Mr. Celeste is a 35-year-old male with a past medical history of IV drug abuse admitted to the hospital with a chief complaint of difficulty breathing. Patient was also having fever at the time of admission. Eventually the work-up showed that the patient has endocarditis with multiple septic emboli to the lung. On 03/21/2021-patient is seen and examined at the bedside. Patient denies having any fevers chills or rigors overnight. No cough or difficulty in breathing or hemoptysis. No chest pain or palpitations. No abdominal pain nausea vomiting or diarrhea. No dysuria or hematuria. On reviewing the vitals T-max of 99.5, heart rate 90s 200s, blood pressure 130/71 saturating at 96% on room air. Patient has blood work done showing white count of 15.6, hemoglobin 8.6, platelets 264. Sodium 132, potassium 4.1, chloride 100, bicarb 20, BUN 11, creatinine 1. On 03/22/2021- patient is seen and examined at the bedside. No acute events reported by nursing staff overnight. Patient denies having any fevers chills or rigors. He says that he has cough, and has streaks of blood on coughing up. Patient denies having any gross hemoptysis. No chest pain, palpitations, difficulty in breathing. He denies having any hematuria or dysuria. On reviewi ng the patient's vitals temperature max 100.8, heart rate 100s, respiratory rate 18, blood pressure 126/70 saturating at 96% on room air. Patient's labs have been reviewed white count of 13.7, hemoglobin 7.9, platelets 283. Sodium 132, potassium 4.2, chloride 100, bicarbonate drip, BUN 8.9, creatinine 0.8. On 03/23/2021 patient is seen and examined at bedside. No acute events reported by nursing staff overnight. Patient has no complaints of chest pain or palpitations. He denied having any cough or difficulty in breathing. No abdominal pain nausea vomiting or diarrhea. He denies having any dizziness or syncopal-like episodes. On reviewing the patient's vitals temperature of 98.7, heart rate between 100s to 110s, respiratory rate 18, blood pressure 120/80 saturating at 96% on room air. On reviewing the patient's labs vancomycin level at 12.7. 03/24/2021 Patient is seen and evaluated in follow-up this morning continues to be closely monitored by cardiology and infectious disease is following as well. Patient is maintained on IV antibiotics in the form of cefepime along with vancomycin. The plan is for possible transfer to tertiary treatment [place] at [facility] in case management following closely making daily phone calls awaiting an available bed. Currently today there are no beds available for transfer. Yesterday's chest x-ray reviewed personally shows increasing bilateral patchy pneumonia and atelectasis compared to recent exams with a normal heart with no definite pleural effusion noted. Will add incentive spirometer and continue to monitor closely. Patient is maintained on Lovenox along with gentle IV hydration. Patient is tolerating diet with no reports of nausea or vomiting noted. Blood cultures remain negative. Sputum culture showing normal lynsey. 03/25/2021 Patient is seen in follow up today and is being closely monitored. Patient to continue with IV antibiotics and infectious disease following closely. Patient awaiting transfer to tertiary treatment [facility] for further evaluation and treatment of infective endocarditis. Case management following daily with updates of bed availability. Patient denies any chest pain or shortness of breath. Patient with one low grade temp of 99.3 this morning and will continue to monitor closely. labs: White blood count is 11.1, hemoglobin is 9.1, platelets are 419, sodium is 133, potassium is 4.8, creatinine is 0.78, calcium is 8.9, vanco trough is 18.5 Review of systems: Constitutional: No reports of fatigue, fever, or chills Cardiovascular: No reports of chest pain or palpitations Respiratory: No reports of shortness of breath or cough GI: No reports of nausea, vomiting, or diarrhea : No reports of dysuria or retention Neurovascular: No reports of weakness or numbness All medications have been reviewed Active Medications Acetaminophen (Acetaminophen Tab 325 Mg Tab) 650 mg PO Q6HR PRN PRN Reason: Mild Pain or Fever > 100.5 Last Admin: 03/25/21 19:45 Dose: 650 mg Documented by: Benzocaine/Menthol (Benzocaine/Menthol Lozeng 1 Each Lozenge) 1 each MUCOUS MEM Q4HR PRN PRN Reason: throat irritation Last Admin: 03/22/21 16:21 Dose: 1 each Documented by: Enoxaparin Sodium (Enoxaparin 40 Mg/0.4 Ml Syringe) 40 mg SQ DAILY [facility] Last Admin: 03/25/21 07:46 Dose: 40 mg Documented by: Famotidine (Famotidine 20 Mg Tab) 20 mg PO BID [facility] Last Admin: 03/25/21 19:45 Dose: 20 mg Documented by: Sodium Chloride (Saline 0.9%) 1,000 mls @ 75 mls/hr IV .[id number] [facility] Last Admin: 03/25/21 14:22 Dose: 75 mls/hr Documented by: Cefepime HCl 2 gm/ Sodium (Chloride) 100 mls @ 25 mls/hr IVPB Q8HR [facility] Last Admin: 03/25/21 23:41 Dose: 25 mls/hr Documented by: Vancomycin HCl 1,750 mg/ (Sodium Chloride) 500 mls @ 250 mls/hr IVPB Q8H [facility] Last Admin: 03/25/21 17:55 Dose: 250 mls/hr Documented by: Morphine Sulfate (Morphine Sulfate 4 Mg/Ml Syringe) 4 mg IVP Q6HR PRN PRN Reason: Pain Last Admin: 03/25/21 20:33 Dose: 4 mg Documented by: Naloxone HCl (Naloxone 0.4 Mg/Ml 1 Ml Vial) 0.2 mg IV Q2M PRN PRN Reason: Opioid Reversal Ondansetron HCl (Ondansetron 4 Mg/2 Ml Vial) 4 mg IVP Q8HR PRN PRN Reason: Nausea And Vomiting Physical exam: GENERAL: The patient is alert and oriented x3. Sitting up in bed. Awake, well- developed, well-nourished. Temp is 99.3F, pulse is 99, respirations are 18, blood pressure is 126/64, oxygen saturation is 100% on room air. HEENT: Pupils are round and equally reacting to light. EOMI. No scleral icterus. No conjunctival pallor. CARDIOVASCULAR: S1 and S2 muffled PULMONARY: Manage breath sounds bilaterally with no wheezing or crackles. ABDOMEN: Soft, nontender, nondistended, normoactive bowel sounds. No palpable organomegaly. MUSCULOSKELETAL: No joint swelling or deformity. EXTREMITIES: No cyanosis, clubbing, or pedal edema. NEUROLOGICAL: Gross neurological examination did not reveal any focal deficits. SKIN: No rashes. 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 Patient to be continued on IV vancomycin along with cefepime and infectious disease following closely for infective endocarditis. Cardiology also following closely. Patient continues to await for tertiary treatment Center transfer to [facility] which has been accepted although no beds available. Case management following and continues to evaluate daily for possible bed. Due to multiple complex medical issues prognosis is extremely guarded. Further recommendations to follow based on the clinical course of the patient. Objective - Vital Signs Vital signs: Vital Signs Temp 98.4 F 03/25/21 04:00 Pulse 91 03/25/21 04:00 Resp 20 03/25/21 04:00 BP 120/55 03/25/21 04:00 Pulse Ox 94 L 03/25/21 04:00 Intake & Output 03/24/21 03/25/21 03/25/21 18:59 06:59 18:59 Intake Total 1080 1760 0 Balance 1080 1760 0 Weight 79.4 kg Intake: Intake, IV Titration 1200 Amount Cefepime 2 gm In Sodium 100 Chloride 0.9% 100 ml @ 25 mls/hr IVPB Q8HR [facility] Rx# :[id number] Sodium Chloride 0.9% 1, 600 000 ml @ 75 mls/hr IV . [id number] [facility] Rx#:[id number] Vancomycin 1,750 mg In 500 Sodium Chloride 0.9% 500 ml 500 ml @ 250 mls/hr IVPB Q8H [facility] Rx#: [id number] Oral 1080 560 0 Other: # Voids 1 2 - Labs CBC & Chem 7: 03/25/21 07:02 03/25/21 07:02 Labs: Abnormal Lab Results - Last 24 Hours (Table) 03/24/21 03/24/21 03/25/21 Range/Units 07:47 07:47 07:02 WBC 10.7 H 11.1 H (3.8-10.6) k/uL RBC 3.66 L 3.69 L (4.30-5.90) m/uL Hgb 9.3 L 9.1 L (13.0-17.5) gm/dL Hct 28.9 L 29.5 L (39.0-53.0) % MCV 78.9 L (80.0-100.0) fL MCH 24.7 L (25.0-35.0) pg MCHC 30.9 L (31.0-37.0) g/dL Neutrophils # 7.8 H (1.3-7.7) k/uL Sodium 133 L (137-145) mmol/L Chloride (98-107) mmol/L BUN 5 L (9-20) mg/dL 03/25/21 Range/Units 07:02 WBC (3.8-10.6) k/uL RBC (4.30-5.90) m/uL Hgb (13.0-17.5) gm/dL Hct (39.0-53.0) % MCV (80.0-100.0) fL MCH (25.0-35.0) pg MCHC (31.0-37.0) g/dL Neutrophils # (1.3-7.7) k/uL Sodium 133 L (137-145) mmol/L Chloride 97 L (98-107) mmol/L BUN 6 L (9-20) mg/dL Microbiology - Last 24 Hours (Table) 03/18/21 23:41 Blood Culture - Final Blood No Growth after 144 hours 03/18/21 23:27 Blood Culture - Final Blood No Growth after 144 hours 03/20/21 07:25 Blood Culture - Preliminary Blood No Growth after 96 hours
[2021-03-26] MEDS: VANCOMYCIN 1,750 MG in SODIUM CHLORIDE 0.9% 500 ML 500 ML IVPB SCH ×3 (03:00→18:35)
[2021-03-26] MEDS: MORPHINE SULFATE 4 MG/ML SYRINGE IVP PRN ×3 (03:01→18:35)
[2021-03-26] MEDS: SODIUM CHLORIDE 0.9% 1,000 ML IV SCH ×2 (06:30→21:44)
[2021-03-26 08:59] LABS: African American GFR (CKD) >90 (>60 ml/min/1.73 sqM); Non-African American GFR(CKD) >90 (>60 ml/min/1.73 sqM)
[2021-03-26] MEDS: ENOXAPARIN 40 MG/0.4 ML SYRINGE SQ SCH (09:14)
[2021-03-26] MEDS: CEFEPIME 2 GM in SODIUM CHLORIDE 0.9% 100 ML IVPB SCH ×3 (10:45→23:53)
[2021-03-26] MEDS: FAMOTIDINE 20 MG TAB PO SCH ×2 (12:19→21:30)
--- NOTE | 2021-03-26 22:47 | PN ---
PROGRESS NOTE DATE OF SERVICE: 03/26/2021 REASON FOR FOLLOWUP: Endocarditis with septic emboli. INTERVAL HISTORY: The patient is afebrile. The patient is breathing comfortably. Denies having any chest pain, shortness of breath or cough. No abdominal pain or diarrhea. PHYSICAL EXAMINATION: Blood pressure is 108/66, pulse of 95, temperature . He is 96% on room air. General description is a middle-aged male lying in bed in no distress. Respiratory system: Unlabored breathing, decreased intensity of breath sounds. No wheeze. Heart S1, S2 regular rate and rhythm. Abdomen soft, no tenderness. LABS: Hemoglobin is 9.1, white count 11.1, creatinine 0.64. DIAGNOSTIC IMPRESSION AND PLAN: Patient with tricuspid valve endocarditis with septic emboli, on empiric vancomycin, cefepime. Currently waiting for transfer to tertiary care. Continue with supportive care. MMODL / IJN: [id number] /
--- NOTE | 2021-03-26 23:21 | P.PN ---
Subjective Progress Note Date: 03/26/21 Sepsis secondary to infective endocarditis Mr. Celeste is a 35-year-old male with a past medical history of IV drug abuse admitted to the hospital with a chief complaint of difficulty breathing. Patient was also having fever at the time of admission. Eventually the work-up showed that the patient has endocarditis with multiple septic emboli to the lung. On 03/21/2021-patient is seen and examined at the bedside. Patient denies having any fevers chills or rigors overnight. No cough or difficulty in breathing or hemoptysis. No chest pain or palpitations. No abdominal pain nausea vomiting or diarrhea. No dysuria or hematuria. On reviewing the vitals T-max of 99.5, heart rate 90s 200s, blood pressure 130/71 saturating at 96% on room air. Patient has blood work done showing white count of 15.6, hemoglobin 8.6, platelets 264. Sodium 132, potassium 4.1, chloride 100, bicarb 20, BUN 11, creatinine 1. On 03/22/2021- patient is seen and examined at the bedside. No acute events reported by nursing staff overnight. Patient denies having any fevers chills or rigors. He says that he has cough, and has streaks of blood on coughing up. Patient denies having any gross hemoptysis. No chest pain, palpitations, difficulty in breathing. He denies having any hematuria or dysuria. On reviewi ng the patient's vitals temperature max 100.8, heart rate 100s, respiratory rate 18, blood pressure 126/70 saturating at 96% on room air. Patient's labs have been reviewed white count of 13.7, hemoglobin 7.9, platelets 283. Sodium 132, potassium 4.2, chloride 100, bicarbonate drip, BUN 8.9, creatinine 0.8. On 03/23/2021 patient is seen and examined at bedside. No acute events reported by nursing staff overnight. Patient has no complaints of chest pain or palpitations. He denied having any cough or difficulty in breathing. No abdominal pain nausea vomiting or diarrhea. He denies having any dizziness or syncopal-like episodes. On reviewing the patient's vitals temperature of 98.7, heart rate between 100s to 110s, respiratory rate 18, blood pressure 120/80 saturating at 96% on room air. On reviewing the patient's labs vancomycin level at 12.7. 03/24/2021 Patient is seen and evaluated in follow-up this morning continues to be closely monitored by cardiology and infectious disease is following as well. Patient is maintained on IV antibiotics in the form of cefepime along with vancomycin. The plan is for possible transfer to tertiary treatment Center at [facility] in case management following closely making daily phone calls awaiting an available bed. Currently today there are no beds available for transfer. Yesterday's chest x-ray reviewed personally shows increasing bilateral patchy pneumonia and atelectasis compared to recent exams with a normal heart with no definite pleural effusion noted. Will add incentive spirometer and continue to monitor closely. Patient is maintained on Lovenox along with gentle IV hydration. Patient is tolerating diet with no reports of nausea or vomiting noted. Blood cultures remain negative. Sputum culture showing normal lynsey. 03/25/2021 Patient is seen in follow up today and is being closely monitored. Patient to continue with IV antibiotics and infectious disease following closely. Patient awaiting transfer to tertiary treatment center [facility] for further evaluation and treatment of infective endocarditis. Case management following daily with updates of bed availability. Patient denies any chest pain or shortness of breath. Patient with one low grade temp of 99.3 this morning and will continue to monitor closely. 03/26/2021 Patient is evaluated this morning and maintained on IV vanco and cefepime and ID following closely. Patient continues to await an available bed at [facility] for transfer to tertiary treatment center requiring higher level acuity. Patient continues with pain and cough as well. labs: creatinine is 0.64 Review of systems: Constitutional: No reports of fatigue, fever, or chills Cardiovascular: reports intermittent chest pain with no reports of palpitations Respiratory: No reports of shortness of breath or cough GI: No reports of nausea, vomiting, or diarrhea : No reports of dysuria or retention Neurovascular: No reports of weakness or numbness All medications have been reviewed Active Medications Acetaminophen (Acetaminophen Tab 325 Mg Tab) 650 mg PO Q6HR PRN PRN Reason: Mild Pain or Fever > 100.5 Last Admin: 03/25/21 19:45 Dose: 650 mg Documented by: Hydrocodone Bitart/Acetaminophen (Hydrocodone/Apap 5-325mg 1 Each Tab) 1 each PO Q6HR PRN PRN Reason: Pain Benzocaine/Menthol (Benzocaine/Menthol Lozeng 1 Each Lozenge) 1 each MUCOUS MEM Q4HR PRN PRN Reason: throat irritation Last Admin: 03/22/21 16:21 Dose: 1 each Documented by: Enoxaparin Sodium (Enoxaparin 40 Mg/0.4 Ml Syringe) 40 mg SQ DAILY [facility] Last Admin: 03/26/21 09:14 Dose: 40 mg Documented by: Famotidine (Famotidine 20 Mg Tab) 20 mg PO BID [facility] Last Admin: 03/26/21 21:30 Dose: 20 mg Documented by: Sodium Chloride (Saline 0.9%) 1,000 mls @ 75 mls/hr IV .[id number] [facility] Last Admin: 03/26/21 21:44 Dose: Not Given Documented by: Cefepime HCl 2 gm/ Sodium (Chloride) 100 mls @ 25 mls/hr IVPB Q8HR [facility] Last Admin: 03/26/21 15:45 Dose: 25 mls/hr Documented by: Vancomycin HCl 1,750 mg/ (Sodium Chloride) 500 mls @ 250 mls/hr IVPB Q8H [facility] Last Admin: 03/26/21 18:35 Dose: 250 mls/hr Documented by: Miscellaneous Information (Vancomycin Trough Due 1 Each Misc) 1 each MISCELLANE ONCE ONE Stop: 03/27/21 09:31 Morphine Sulfate (Morphine Sulfate 4 Mg/Ml Syringe) 4 mg IVP Q6HR PRN PRN Reason: Pain Last Admin: 03/26/21 18:35 Dose: 4 mg Documented by: Naloxone HCl (Naloxone 0.4 Mg/Ml 1 Ml Vial) 0.2 mg IV Q2M PRN PRN Reason: Opioid Reversal Ondansetron HCl (Ondansetron 4 Mg/2 Ml Vial) 4 mg IVP Q8HR PRN PRN Reason: Nausea And Vomiting Physical exam: GENERAL: The patient is alert and oriented x3. Sitting up in bed. Awake, well- developed, well-nourished. Temp is 99.0F, pulse is 56, respirations are 16, blood pressure is 128/65, oxygen saturation is 100% on room air. HEENT: Pupils are round and equally reacting to light. EOMI. No scleral icterus. No conjunctival pallor. CARDIOVASCULAR: S1 and S2 muffled PULMONARY: diminished breath sounds bilaterally with no wheezing or crackles. ABDOMEN: Soft, nontender, nondistended, normoactive bowel sounds. No palpable organomegaly. MUSCULOSKELETAL: No joint swelling or deformity. EXTREMITIES: No cyanosis, clubbing, or pedal edema. NEUROLOGICAL: Gross neurological examination did not reveal any focal deficits. SKIN: No rashes. Assessment: Sepsis secondary to endocarditis with multiple septic emboli to the lungs with cavitary lesions Tricuspid valve regurgitation with vegetation on tricuspid valve History of hepatitis C History of IV drug abuse Hyponatremia Depression DVT prophylaxis GI prophylaxis Full code PLAN: Recommend to continue with current medications, management, and symptomatic treatment. Patient to be continued on IV vancomycin along with cefepime and infectious disease following closely for infective endocarditis. Patient continues to await for tertiary treatment Center transfer to [facility] which has been accepted although no beds available. Case management following and continues to evaluate daily for possible bed. Patient requesting to evaluate if [facility] has any beds available yet. Not accepting transfers at this time. Due to multiple complex medical issues prognosis is extremely guarded. Further recommendations to follow based on the clinical course of the patient. Objective - Vital Signs Vital signs: Vital Signs Temp 97.8 F 03/26/21 03:22 Pulse 75 03/26/21 03:22 Resp 18 03/26/21 03:22 BP 117/77 03/26/21 03:22 Pulse Ox 96 03/26/21 03:22 Intake & Output 03/25/21 03/26/21 03/26/21 18:59 06:59 18:59 Intake Total 120 Balance 120 Weight 79.4 kg 78.6 kg Intake: Oral 120 Other: Voiding Method Toilet Urinal # Voids 1 2 - Labs CBC & Chem 7: 03/25/21 07:02 03/26/21 08:05 Labs: Abnormal Lab Results - Last 24 Hours (Table) 03/26/21 Range/Units 08:05 Creatinine 0.64 L (0.66-1.25) mg/dL Microbiology - Last 24 Hours (Table) 03/20/21 07:25 Blood Culture - Preliminary Blood No Growth after 120 hours
[2021-03-27] MEDS: VANCOMYCIN 1,750 MG in SODIUM CHLORIDE 0.9% 500 ML 500 ML IVPB SCH ×2 (01:45→10:14)
[2021-03-27] MEDS: MORPHINE SULFATE 4 MG/ML SYRINGE IVP PRN ×3 (01:46→22:24)
[2021-03-27] MEDS ORDERED: VANCOMYCIN TROUGH DUE 1 EACH MISC MISCELLANE ONE (09:30)
[2021-03-27] MEDS: FAMOTIDINE 20 MG TAB PO SCH ×2 (09:58→21:30)
[2021-03-27] MEDS: ENOXAPARIN 40 MG/0.4 ML SYRINGE SQ SCH (09:58)
[2021-03-27] MEDS: CEFEPIME 2 GM in SODIUM CHLORIDE 0.9% 100 ML IVPB SCH ×3 (09:58→23:12)
[2021-03-27 10:28] LABS: African American GFR (CKD) >90 (>60 ml/min/1.73 sqM); Non-African American GFR(CKD) >90 (>60 ml/min/1.73 sqM)
[2021-03-27] MEDS: SODIUM CHLORIDE 0.9% 1,000 ML IV SCH ×2 (15:59→22:25)
[2021-03-27] MEDS: HYDROcodone/APAP 5-325MG 1 EACH TAB PO PRN (16:00)
[2021-03-27] MEDS: VANCOMYCIN 1,500 MG in SODIUM CHLORIDE 0.9% 250 ML IVPB SCH (17:26)
--- NOTE | 2021-03-27 18:07 | PN ---
PROGRESS NOTE DATE OF SERVICE: 03/27/2021 REASON FOR FOLLOWUP: Septic emboli with tricuspid valve vegetation, endocarditis. INTERVAL HISTORY: The patient is afebrile. The patient seems to be slightly frustrated with waiting for transfer to [facility]. Patient denies having any chest pain or shortness of breath. Occasional cough. No abdominal pain or diarrhea. PHYSICAL EXAMINATION: Blood pressure 116/63, pulse of 81, temperature of 98.7. He is 97% on room air. General description is a middle-aged male lying in bed in no distress. Respiratory system: Unlabored breathing, clear to auscultation. Heart S1, S2. Regular rate and rhythm. Abdomen soft, no tenderness. LABS: Creatinine 0.71. Blood and sputum cultures have been negative. DIAGNOSTIC IMPRESSION AND PLAN: Patient with septic emboli with evidence of tricuspid valve endocarditis. Patient is covered with vancomycin, cefepime. Waiting for transfer to [facility] to be evaluated by CT Surgery. Continue with supportive care. MMODL / IJN: [id number] /
[2021-03-28] MEDS: VANCOMYCIN 1,500 MG in SODIUM CHLORIDE 0.9% 250 ML IVPB SCH ×3 (01:02→16:57)
--- NOTE | 2021-03-28 02:35 | P.PN ---
Subjective Progress Note Date: 03/27/21 Sepsis secondary to infective endocarditis Mr. Celeste is a 35-year-old male with a past medical history of IV drug abuse admitted to the hospital with a chief complaint of difficulty breathing. Patient was also having fever at the time of admission. Eventually the work-up showed that the patient has endocarditis with multiple septic emboli to the lung. On 03/21/2021-patient is seen and examined at the bedside. Patient denies having any fevers chills or rigors overnight. No cough or difficulty in breathing or hemoptysis. No chest pain or palpitations. No abdominal pain nausea vomiting or diarrhea. No dysuria or hematuria. On reviewing the vitals T-max of 99.5, heart rate 90s 200s, blood pressure 130/71 saturating at 96% on room air. Patient has blood work done showing white count of 15.6, hemoglobin 8.6, platelets 264. Sodium 132, potassium 4.1, chloride 100, bicarb 20, BUN 11, creatinine 1. On 03/22/2021- patient is seen and examined at the bedside. No acute events reported by nursing staff overnight. Patient denies having any fevers chills or rigors. He says that he has cough, and has streaks of blood on coughing up. Patient denies having any gross hemoptysis. No chest pain, palpitations, difficulty in breathing. He denies having any hematuria or dysuria. On reviewi ng the patient's vitals temperature max 100.8, heart rate 100s, respiratory rate 18, blood pressure 126/70 saturating at 96% on room air. Patient's labs have been reviewed white count of 13.7, hemoglobin 7.9, platelets 283. Sodium 132, potassium 4.2, chloride 100, bicarbonate drip, BUN 8.9, creatinine 0.8. On 03/23/2021 patient is seen and examined at bedside. No acute events reported by nursing staff overnight. Patient has no complaints of chest pain or palpitations. He denied having any cough or difficulty in breathing. No abdominal pain nausea vomiting or diarrhea. He denies having any dizziness or syncopal-like episodes. On reviewing the patient's vitals temperature of 98.7, heart rate between 100s to 110s, respiratory rate 18, blood pressure 120/80 saturating at 96% on room air. On reviewing the patient's labs vancomycin level at 12.7. 03/24/2021 Patient is seen and evaluated in follow-up this morning continues to be closely monitored by cardiology and infectious disease is following as well. Patient is maintained on IV antibiotics in the form of cefepime along with vancomycin. The plan is for possible transfer to tertiary treatment [place] at [facility] in case management following closely making daily phone calls awaiting an available bed. Currently today there are no beds available for transfer. Yesterday's chest x-ray reviewed personally shows increasing bilateral patchy pneumonia and atelectasis compared to recent exams with a normal heart with no definite pleural effusion noted. Will add incentive spirometer and continue to monitor closely. Patient is maintained on Lovenox along with gentle IV hydration. Patient is tolerating diet with no reports of nausea or vomiting noted. Blood cultures remain negative. Sputum culture showing normal lynsey. 03/25/2021 Patient is seen in follow up today and is being closely monitored. Patient to continue with IV antibiotics and infectious disease following closely. Patient awaiting transfer to tertiary treatment [facility] for further evaluation and treatment of infective endocarditis. Case management following daily with updates of bed availability. Patient denies any chest pain or shortness of breath. Patient with one low grade temp of 99.3 this morning and will continue to monitor closely. 03/26/2021 Patient is evaluated this morning and maintained on IV vanco and cefepime and ID following closely. Patient continues to await an available bed at [facility] for transfer to tertiary treatment center requiring higher level acuity. Patient continues with pain and cough as well. 03/27/2021 Patient is seen in follow up today and no bed available at [facility] at this time. Case management following closely and [facility] calling daily to update. Patient is afebrile and maintained on IV cefepime and vancomycin and ID following. Review of systems: Constitutional: No reports of fatigue, fever, or chills Cardiovascular: reports intermittent chest pain with no reports of palpitations Respiratory: No reports of shortness of breath or cough GI: No reports of nausea, vomiting, or diarrhea : No reports of dysuria or retention Neurovascular: No reports of weakness or numbness All medications have been reviewed Active Medications Acetaminophen (Acetaminophen Tab 325 Mg Tab) 650 mg PO Q6HR PRN PRN Reason: Mild Pain or Fever > 100.5 Last Admin: 03/25/21 19:45 Dose: 650 mg Documented by: Hydrocodone Bitart/Acetaminophen (Hydrocodone/Apap 5-325mg 1 Each Tab) 1 each PO Q6HR PRN PRN Reason: Pain Last Admin: 03/27/21 16:00 Dose: 1 each Documented by: Benzocaine/Menthol (Benzocaine/Menthol Lozeng 1 Each Lozenge) 1 each MUCOUS MEM Q4HR PRN PRN Reason: throat irritation Last Admin: 03/22/21 16:21 Dose: 1 each Documented by: Enoxaparin Sodium (Enoxaparin 40 Mg/0.4 Ml Syringe) 40 mg SQ DAILY [facility] Last Admin: 03/27/21 09:58 Dose: 40 mg Documented by: Famotidine (Famotidine 20 Mg Tab) 20 mg PO BID [facility] Last Admin: 03/27/21 21:30 Dose: 20 mg Documented by: Sodium Chloride (Saline 0.9%) 1,000 mls @ 75 mls/hr IV .[id number] [facility] Last Admin: 03/27/21 22:25 Dose: 75 mls/hr Documented by: Cefepime HCl 2 gm/ Sodium (Chloride) 100 mls @ 25 mls/hr IVPB Q8HR [facility] Last Admin: 03/27/21 23:12 Dose: 25 mls/hr Documented by: Vancomycin HCl 1,500 mg/ (Sodium Chloride) 250 mls @ 125 mls/hr IVPB Q8H [facility] Last Admin: 03/28/21 01:02 Dose: 125 mls/hr Documented by: Morphine Sulfate (Morphine Sulfate 4 Mg/Ml Syringe) 4 mg IVP Q6HR PRN PRN Reason: Pain Last Admin: 03/27/21 22:24 Dose: 4 mg Documented by: Naloxone HCl (Naloxone 0.4 Mg/Ml 1 Ml Vial) 0.2 mg IV Q2M PRN PRN Reason: Opioid Reversal Ondansetron HCl (Ondansetron 4 Mg/2 Ml Vial) 4 mg IVP Q8HR PRN PRN Reason: Nausea And Vomiting Physical exam: GENERAL: The patient is alert and oriented x3. Sitting up in bed. Awake, well- developed, well-nourished. Afebrile, vss HEENT: Pupils are round and equally reacting to light. EOMI. No scleral icterus. No conjunctival pallor. CARDIOVASCULAR: S1 and S2 muffled PULMONARY: diminished breath sounds bilaterally with no wheezing or crackles. ABDOMEN: Soft, nontender, nondistended, normoactive bowel sounds. No palpable organomegaly. MUSCULOSKELETAL: No joint swelling or deformity. EXTREMITIES: No cyanosis, clubbing, or pedal edema. NEUROLOGICAL: Gross neurological examination did not reveal any focal deficits. SKIN: No rashes. 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 Patient to be continued on IV vancomycin along with cefepime and infectious disease following closely for infective endocarditis. Patient continues to await for tertiary treatment Center transfer to [facility] which has been accepted although no beds available. Case management following and continues to evaluate daily for possible bed. Will repeat am labs. Due to multiple complex medical issues prognosis is extremely guarded. Further recommendations to follow based on the clinical course of the patient. Objective - Vital Signs Vital signs: Vital Signs Temp 98 F 03/27/21 09:55 Pulse 77 03/27/21 09:55 Resp 16 03/27/21 09:55 BP 103/73 03/27/21 09:55 Pulse Ox 96 03/27/21 04:00 Intake & Output 03/26/21 03/27/21 03/27/21 18:59 06:59 18:59 Intake Total 2150 815 118 Balance 2150 815 118 Weight 77.4 kg Intake: Intake, IV Titration 350 575 Amount Cefepime 2 gm In Sodium 100 100 Chloride 0.9% 100 ml @ 25 mls/hr IVPB Q8HR [facility] Rx# :[id number] Sodium Chloride 0.9% 1, 225 000 ml @ 75 mls/hr IV . [id number] [facility] Rx#:[id number] Vancomycin 1,750 mg In 250 250 Sodium Chloride 0.9% 500 ml 500 ml @ 250 mls/hr IVPB Q8H [facility] Rx#: [id number] Oral 1800 240 118 Other: Voiding Method Toilet Toilet Urinal Urinal # Voids 2 - Labs CBC & Chem 7: 03/25/21 07:02 03/27/21 09:23 Labs: Microbiology - Last 24 Hours (Table) 03/20/21 07:25 Blood Culture - Final Blood No Growth after 144 hours
[2021-03-28 08:13] VITALS: RESP 18
[2021-03-28] MEDS: CEFEPIME 2 GM in SODIUM CHLORIDE 0.9% 100 ML IVPB SCH ×3 (08:13→22:56)
[2021-03-28] MEDS: ENOXAPARIN 40 MG/0.4 ML SYRINGE SQ SCH (08:13)
[2021-03-28] MEDS: FAMOTIDINE 20 MG TAB PO SCH ×2 (08:13→20:13)
[2021-03-28] MEDS: HYDROcodone/APAP 5-325MG 1 EACH TAB PO PRN ×2 (11:20→20:13)
[2021-03-28] MEDS: SODIUM CHLORIDE 0.9% 1,000 ML IV SCH ×2 (12:48→22:57)
[2021-03-28 13:11] LABS: Basophils % (A) 1 %; Eosinophils # (A) 0.3 k/uL (0-0.7); Eosinophils % (A) 4 %; HCT 30.8 % (39.0-53.0); HGB 9.7 gm/dL (13.0-17.5); Hypochromasia Slight; Lymphocytes # (A) 1.7 k/uL (1.0-4.8); Lymphocytes % (A) 24 %; MCH 25.2 pg (25.0-35.0); MCHC 31.5 g/dL (31.0-37.0); MCV 80.1 fL (80.0-100.0); Monocytes # (A) 0.3 k/uL (0-1.0); Monocytes % (A) 4 %; Neutrophils # (A) 4.5 k/uL (1.3-7.7); Neutrophils % (A) 65 %; Platelet Count 350 k/uL (150-450); RBC 3.84 m/uL (4.30-5.90); RDW 15.2 % (11.5-15.5)
[2021-03-28 13:41] LABS: African American GFR (CKD) >90 (>60 ml/min/1.73 sqM); Anion Gap 9 mmol/L; Blood Urea Nitrogen 8 mg/dL (9-20); Calcium 8.7 mg/dL (8.4-10.2); Carbon Dioxide 26 mmol/L (22-30); Chloride 100 mmol/L (98-107); Glucose 120 mg/dL (74-99); Non-African American GFR(CKD) >90 (>60 ml/min/1.73 sqM); Potassium 4.4 mmol/L (3.5-5.1); Sodium 135 mmol/L (137-145)
--- NOTE | 2021-03-28 21:51 | PN ---
PROGRESS NOTE DATE OF SERVICE: 03/28/2021 REASON FOR FOLLOWUP: Infective endocarditis and septic emboli. INTERVAL HISTORY: The patient is afebrile. The patient is breathing comfortably. The patient seems to be slightly frustrated, waiting that long to get transferred. The patient denies having any chest pain, shortness of breath or cough. No abdominal pain or diarrhea. PHYSICAL EXAMINATION: Blood pressure 116/71, pulse 85, temperature 97.9. He is 95% on room air. General description is a middle-aged male lying in bed in no distress. Respiratory system: Unlabored breathing, clear to auscultation. Heart S1, S2. Regular rate and rhythm. Extremities no edema of the feet. LABS: Blood cultures remain negative. DIAGNOSTIC IMPRESSION AND PLAN: Patient with tricuspid valve endocarditis with septic emboli in this patient currently waiting for transfer to tertiary care to be evaluated by CT Surgery, covered with vancomycin and cefepime. Monitor his clinical course closely. Continue with supportive care. MMODL / IJN: [id number] /
[2021-03-29] MEDS: VANCOMYCIN 1,500 MG in SODIUM CHLORIDE 0.9% 250 ML IVPB SCH ×3 (01:00→16:43)
--- NOTE | 2021-03-29 01:49 | P.PN ---
Subjective Progress Note Date: 03/28/21 Sepsis secondary to infective endocarditis Mr. Celeste is a 35-year-old male with a past medical history of IV drug abuse admitted to the hospital with a chief complaint of difficulty breathing. Patient was also having fever at the time of admission. Eventually the work-up showed that the patient has endocarditis with multiple septic emboli to the lung. On 03/21/2021-patient is seen and examined at the bedside. Patient denies having any fevers chills or rigors overnight. No cough or difficulty in breathing or hemoptysis. No chest pain or palpitations. No abdominal pain nausea vomiting or diarrhea. No dysuria or hematuria. On reviewing the vitals T-max of 99.5, heart rate 90s 200s, blood pressure 130/71 saturating at 96% on room air. Patient has blood work done showing white count of 15.6, hemoglobin 8.6, platelets 264. Sodium 132, potassium 4.1, chloride 100, bicarb 20, BUN 11, creatinine 1. On 03/22/2021- patient is seen and examined at the bedside. No acute events reported by nursing staff overnight. Patient denies having any fevers chills or rigors. He says that he has cough, and has streaks of blood on coughing up. Patient denies having any gross hemoptysis. No chest pain, palpitations, difficulty in breathing. He denies having any hematuria or dysuria. On reviewi ng the patient's vitals temperature max 100.8, heart rate 100s, respiratory rate 18, blood pressure 126/70 saturating at 96% on room air. Patient's labs have been reviewed white count of 13.7, hemoglobin 7.9, platelets 283. Sodium 132, potassium 4.2, chloride 100, bicarbonate drip, BUN 8.9, creatinine 0.8. On 03/23/2021 patient is seen and examined at bedside. No acute events reported by nursing staff overnight. Patient has no complaints of chest pain or palpitations. He denied having any cough or difficulty in breathing. No abdominal pain nausea vomiting or diarrhea. He denies having any dizziness or syncopal-like episodes. On reviewing the patient's vitals temperature of 98.7, heart rate between 100s to 110s, respiratory rate 18, blood pressure 120/80 saturating at 96% on room air. On reviewing the patient's labs vancomycin level at 12.7. 03/24/2021 Patient is seen and evaluated in follow-up this morning continues to be closely monitored by cardiology and infectious disease is following as well. Patient is maintained on IV antibiotics in the form of cefepime along with vancomycin. The plan is for possible transfer to tertiary treatment [place] at [facility] in case management following closely making daily phone calls awaiting an available bed. Currently today there are no beds available for transfer. Yesterday's chest x-ray reviewed personally shows increasing bilateral patchy pneumonia and atelectasis compared to recent exams with a normal heart with no definite pleural effusion noted. Will add incentive spirometer and continue to monitor closely. Patient is maintained on Lovenox along with gentle IV hydration. Patient is tolerating diet with no reports of nausea or vomiting noted. Blood cultures remain negative. Sputum culture showing normal lynsey. 03/25/2021 Patient is seen in follow up today and is being closely monitored. Patient to continue with IV antibiotics and infectious disease following closely. Patient awaiting transfer to tertiary treatment [facility] for further evaluation and treatment of infective endocarditis. Case management following daily with updates of bed availability. Patient denies any chest pain or shortness of breath. Patient with one low grade temp of 99.3 this morning and will continue to monitor closely. 03/26/2021 Patient is evaluated this morning and maintained on IV vanco and cefepime and ID following closely. Patient continues to await an available bed at [facility] for transfer to tertiary treatment center requiring higher level acuity. Patient continues with pain and cough as well. 03/27/2021 Patient is seen in follow up today and no bed available at [facility] at this time. Case management following closely and [facility] calling daily to update. Patient is afebrile and maintained on IV cefepime and vancomycin and ID following. 03/28/2021 Patient is seen today with no acute overnight issues noted and continued on IV antibiotics with ID following closely. Patient continues to await a bed availability at [facility] for higher level of care. No reports of chest pain or shortness of breath. Afebrile. Review of systems: Constitutional: No reports of fatigue, fever, or chills Cardiovascular: reports intermittent chest pain with no reports of palpitations Respiratory: No reports of shortness of breath or cough GI: No reports of nausea, vomiting, or diarrhea : No reports of dysuria or retention Neurovascular: No reports of weakness or numbness All medications have been reviewed Active Medications Acetaminophen (Acetaminophen Tab 325 Mg Tab) 650 mg PO Q6HR PRN PRN Reason: Mild Pain or Fever > 100.5 Last Admin: 03/25/21 19:45 Dose: 650 mg Documented by: Hydrocodone Bitart/Acetaminophen (Hydrocodone/Apap 5-325mg 1 Each Tab) 1 each PO Q6HR PRN PRN Reason: Pain Last Admin: 03/28/21 20:13 Dose: 1 each Documented by: Benzocaine/Menthol (Benzocaine/Menthol Lozeng 1 Each Lozenge) 1 each MUCOUS MEM Q4HR PRN PRN Reason: throat irritation Last Admin: 03/22/21 16:21 Dose: 1 each Documented by: Enoxaparin Sodium (Enoxaparin 40 Mg/0.4 Ml Syringe) 40 mg SQ DAILY [facility] Last Admin: 03/28/21 08:13 Dose: 40 mg Documented by: Famotidine (Famotidine 20 Mg Tab) 20 mg PO BID [facility] Last Admin: 03/28/21 20:13 Dose: 20 mg Documented by: Sodium Chloride (Saline 0.9%) 1,000 mls @ 75 mls/hr IV .[id number] [facility] Last Admin: 03/28/21 22:57 Dose: 75 mls/hr Documented by: Cefepime HCl 2 gm/ Sodium (Chloride) 100 mls @ 25 mls/hr IVPB Q8HR [facility] Last Admin: 03/28/21 22:56 Dose: 25 mls/hr Documented by: Vancomycin HCl 1,500 mg/ (Sodium Chloride) 250 mls @ 125 mls/hr IVPB Q8H [facility] Last Admin: 03/29/21 01:00 Dose: 125 mls/hr Documented by: Morphine Sulfate (Morphine Sulfate 4 Mg/Ml Syringe) 4 mg IVP Q6HR PRN PRN Reason: Pain Last Admin: 03/27/21 22:24 Dose: 4 mg Documented by: Naloxone HCl (Naloxone 0.4 Mg/Ml 1 Ml Vial) 0.2 mg IV Q2M PRN PRN Reason: Opioid Reversal Ondansetron HCl (Ondansetron 4 Mg/2 Ml Vial) 4 mg IVP Q8HR PRN PRN Reason: Nausea And Vomiting Physical exam: GENERAL: The patient is alert and oriented x3. Sitting up in bed. Awake, well- developed, well-nourished. Afebrile HEENT: Pupils are round and equally reacting to light. EOMI. No scleral icterus. No conjunctival pallor. CARDIOVASCULAR: S1 and S2 muffled PULMONARY: diminished breath sounds bilaterally with no wheezing or crackles. ABDOMEN: Soft, nontender, nondistended, normoactive bowel sounds. No palpable organomegaly. MUSCULOSKELETAL: No joint swelling or deformity. EXTREMITIES: No cyanosis, clubbing, or pedal edema. NEUROLOGICAL: Gross neurological examination did not reveal any focal deficits. SKIN: No rashes. Assessment: Sepsis secondary to endocarditis with multiple septic emboli to the lungs with cavitary lesions Tricuspid valve regurgitation with vegetation on tricuspid valve History of hepatitis C History of IV drug abuse Hyponatremia Depression DVT prophylaxis GI prophylaxis Full code PLAN: Recommend to continue with current medications, management, and symptomatic treatment. Patient to be continued on IV vancomycin along with cefepime and infectious disease following closely for infective endocarditis. Patient continues to await for tertiary treatment Center transfer to [facility] which has been accepted although no beds available. Will follow up rodrigo velásquez with [facility] Case management following. Due to multiple complex medical issues prognosis is extremely guarded. Further recommendations to follow based on the clinical course of the patient. Objective - Vital Signs Vital signs: Vital Signs Temp 97.8 F 03/28/21 11:22 Pulse 86 03/28/21 11:22 Resp 18 03/28/21 14:00 BP 118/65 03/28/21 11:22 Pulse Ox 97 03/28/21 11:22 Intake & Output 03/27/21 03/28/21 03/28/21 18:59 06:59 18:59 Intake Total 1772 480 Balance 1772 480 Weight 77.8 kg Intake: Intake, IV Titration 250 Amount Vancomycin 1,500 mg In 250 Sodium Chloride 0.9% 250 ml @ 125 mls/hr IVPB Q8H [facility] Rx#:[id number] Oral 1522 469 Other: Voiding Method Toilet Toilet Toilet Urinal Urinal # Voids 1 - Labs CBC & Chem 7: 03/28/21 12:47 03/28/21 12:47 Labs: Abnormal Lab Results - Last 24 Hours (Table) 03/28/21 03/28/21 Range/Units 12:47 12:47 RBC 3.84 L (4.30-5.90) m/uL Hgb 9.7 L (13.0-17.5) gm/dL Hct 30.8 L (39.0-53.0) % Sodium 135 L (137-145) mmol/L BUN 8 L (9-20) mg/dL Creatinine 0.63 L (0.66-1.25) mg/dL Glucose 120 H (74-99) mg/dL
[2021-03-29] MEDS: CEFEPIME 2 GM in SODIUM CHLORIDE 0.9% 100 ML IVPB SCH ×2 (07:45→16:43)
[2021-03-29] MEDS: ENOXAPARIN 40 MG/0.4 ML SYRINGE SQ SCH (07:45)
[2021-03-29] MEDS: MORPHINE SULFATE 4 MG/ML SYRINGE IVP PRN ×2 (07:49→19:53)
[2021-03-29] MEDS: FAMOTIDINE 20 MG TAB PO SCH (10:56)
[2021-03-29 12:11] VITALS: TEMP 98
[2021-03-29 12:45] LABS: African American GFR (CKD) >90 (>60 ml/min/1.73 sqM); Non-African American GFR(CKD) >90 (>60 ml/min/1.73 sqM)
--- NOTE | 2021-03-29 14:39 | P.PN ---
Subjective Progress Note Date: 03/29/21 Sepsis secondary to infective endocarditis Mr. Celeste is a 35-year-old male with a past medical history of IV drug abuse admitted to the hospital with a chief complaint of difficulty breathing. Patient was also having fever at the time of admission. Eventually the work-up showed that the patient has endocarditis with multiple septic emboli to the lung. On 03/21/2021-patient is seen and examined at the bedside. Patient denies having any fevers chills or rigors overnight. No cough or difficulty in breathing or hemoptysis. No chest pain or palpitations. No abdominal pain nausea vomiting or diarrhea. No dysuria or hematuria. On reviewing the vitals T-max of 99.5, heart rate 90s 200s, blood pressure 130/71 saturating at 96% on room air. Patient has blood work done showing white count of 15.6, hemoglobin 8.6, platelets 264. Sodium 132, potassium 4.1, chloride 100, bicarb 20, BUN 11, creatinine 1. On 03/22/2021- patient is seen and examined at the bedside. No acute events reported by nursing staff overnight. Patient denies having any fevers chills or rigors. He says that he has cough, and has streaks of blood on coughing up. Patient denies having any gross hemoptysis. No chest pain, palpitations, difficulty in breathing. He denies having any hematuria or dysuria. On reviewi ng the patient's vitals temperature max 100.8, heart rate 100s, respiratory rate 18, blood pressure 126/70 saturating at 96% on room air. Patient's labs have been reviewed white count of 13.7, hemoglobin 7.9, platelets 283. Sodium 132, potassium 4.2, chloride 100, bicarbonate drip, BUN 8.9, creatinine 0.8. On 03/23/2021 patient is seen and examined at bedside. No acute events reported by nursing staff overnight. Patient has no complaints of chest pain or palpitations. He denied having any cough or difficulty in breathing. No abdominal pain nausea vomiting or diarrhea. He denies having any dizziness or syncopal-like episodes. On reviewing the patient's vitals temperature of 98.7, heart rate between 100s to 110s, respiratory rate 18, blood pressure 120/80 saturating at 96% on room air. On reviewing the patient's labs vancomycin level at 12.7. 03/24/2021 Patient is seen and evaluated in follow-up this morning continues to be closely monitored by cardiology and infectious disease is following as well. Patient is maintained on IV antibiotics in the form of cefepime along with vancomycin. The plan is for possible transfer to tertiary treatment [place] at [facility] in case management following closely making daily phone calls awaiting an available bed. Currently today there are no beds available for transfer. Yesterday's chest x-ray reviewed personally shows increasing bilateral patchy pneumonia and atelectasis compared to recent exams with a normal heart with no definite pleural effusion noted. Will add incentive spirometer and continue to monitor closely. Patient is maintained on Lovenox along with gentle IV hydration. Patient is tolerating diet with no reports of nausea or vomiting noted. Blood cultures remain negative. Sputum culture showing normal lynsey. 03/25/2021 Patient is seen in follow up today and is being closely monitored. Patient to continue with IV antibiotics and infectious disease following closely. Patient awaiting transfer to tertiary treatment [facility] for further evaluation and treatment of infective endocarditis. Case management following daily with updates of bed availability. Patient denies any chest pain or shortness of breath. Patient with one low grade temp of 99.3 this morning and will continue to monitor closely. 03/26/2021 Patient is evaluated this morning and maintained on IV vanco and cefepime and ID following closely. Patient continues to await an available bed at [facility] for transfer to tertiary treatment center requiring higher level acuity. Patient continues with pain and cough as well. 03/27/2021 Patient is seen in follow up today and no bed available at [facility] at this time. Case management following closely and [facility] calling daily to update. Patient is afebrile and maintained on IV cefepime and vancomycin and ID following. 03/28/2021 Patient is seen today with no acute overnight issues noted and continued on IV antibiotics with ID following closely. Patient continues to await a bed availability at [facility] for higher level of care. No reports of chest pain or shortness of breath. Afebrile. 03/29/2021 Patient is seen and evaluated in follow up today and continues to wait for a bed to become available at [facility] where he was accepted for tertiary treatment of cavitary lesions and infective endocarditis. ID and cardiology following and patient to continue with IV antibiotics. Patient is becoming more agitated and anxious about continuing to have no beds. [facility] called stating there may be a bed available today. Case management or nursing to follow up. Review of systems: Constitutional: No reports of fatigue, fever, or chills, anxious Cardiovascular: reports intermittent chest pain with no reports of palpitations Respiratory: No reports of shortness of breath or cough GI: No reports of nausea, vomiting, or diarrhea : No reports of dysuria or retention Neurovascular: No reports of weakness or numbness All medications have been reviewed Active Medications Acetaminophen (Acetaminophen Tab 325 Mg Tab) 650 mg PO Q6HR PRN PRN Reason: Mild Pain or Fever > 100.5 Last Admin: 03/25/21 19:45 Dose: 650 mg Documented by: Hydrocodone Bitart/Acetaminophen (Hydrocodone/Apap 5-325mg 1 Each Tab) 1 each PO Q6HR PRN PRN Reason: Pain Last Admin: 03/28/21 20:13 Dose: 1 each Documented by: Benzocaine/Menthol (Benzocaine/Menthol Lozeng 1 Each Lozenge) 1 each MUCOUS MEM Q4HR PRN PRN Reason: throat irritation Last Admin: 03/22/21 16:21 Dose: 1 each Documented by: Enoxaparin Sodium (Enoxaparin 40 Mg/0.4 Ml Syringe) 40 mg SQ DAILY [facility] Last Admin: 03/29/21 07:45 Dose: 40 mg Documented by: Famotidine (Famotidine 20 Mg Tab) 20 mg PO BID [facility] Last Admin: 03/29/21 10:56 Dose: 20 mg Documented by: Sodium Chloride (Saline 0.9%) 1,000 mls @ 75 mls/hr IV .[id number] [facility] Last Admin: 03/28/21 22:57 Dose: 75 mls/hr Documented by: Cefepime HCl 2 gm/ Sodium (Chloride) 100 mls @ 25 mls/hr IVPB Q8HR [facility] Last Admin: 03/29/21 07:45 Dose: 25 mls/hr Documented by: Vancomycin HCl 1,500 mg/ (Sodium Chloride) 250 mls @ 125 mls/hr IVPB Q8H [facility] Last Admin: 03/29/21 10:56 Dose: 125 mls/hr Documented by: Miscellaneous Information (Vancomycin Trough Due 1 Each Misc) 0 each MISCELLANE DIRECTED ONE Stop: 03/30/21 09:01 Morphine Sulfate (Morphine Sulfate 4 Mg/Ml Syringe) 4 mg IVP Q6HR PRN PRN Reason: Pain Last Admin: 03/29/21 07:49 Dose: 4 mg Documented by: Naloxone HCl (Naloxone 0.4 Mg/Ml 1 Ml Vial) 0.2 mg IV Q2M PRN PRN Reason: Opioid Reversal Ondansetron HCl (Ondansetron 4 Mg/2 Ml Vial) 4 mg IVP Q8HR PRN PRN Reason: Nausea And Vomiting Physical exam: GENERAL: The patient is alert and oriented x3. Sitting up in bed. Awake, well- developed, well-nourished. Afebrile, anxious HEENT: Pupils are round and equally reacting to light. EOMI. No scleral icterus. No conjunctival pallor. CARDIOVASCULAR: S1 and S2 muffled PULMONARY: diminished breath sounds bilaterally with no wheezing or crackles. ABDOMEN: Soft, nontender, nondistended, normoactive bowel sounds. No palpable organomegaly. MUSCULOSKELETAL: No joint swelling or deformity. EXTREMITIES: No cyanosis, clubbing, or pedal edema. NEUROLOGICAL: Gross neurological examination did not reveal any focal deficits. SKIN: No rashes. Assessment: Sepsis secondary to endocarditis with multiple septic emboli to the lungs with cavitary lesions Tricuspid valve regurgitation with vegetation on tricuspid valve History of hepatitis C History of IV drug abuse Hyponatremia Depression DVT prophylaxis GI prophylaxis Full code PLAN: Recommend to continue with current medications, management, and symptomatic treatment. Patient to be continued on IV vancomycin along with cefepime and infectious disease following closely for infective endocarditis. Patient continues to await for tertiary treatment Center transfer to [facility] which has been accepted although no beds available. [facility] called today and stated there may be a bed available today and will update. Case management following. Due to multiple complex medical issues prognosis is extremely guarded. Further recommendations to follow based on the clinical course of the patient. Objective - Vital Signs Vital signs: Vital Signs Temp 98.1 F 03/29/21 07:52 Pulse 75 03/29/21 07:52 Resp 18 03/29/21 07:52 BP 116/59 03/29/21 07:52 Pulse Ox 99 03/29/21 07:52 Intake & Output 03/28/21 03/29/21 03/29/21 18:59 06:59 18:59 Intake Total 1020 75 240 Balance 1020 75 240 Intake: Intake, IV Titration 75 Amount Sodium Chloride 0.9% 1, 75 000 ml @ 75 mls/hr IV . [id number] [facility] Rx#:[id number] Oral 1020 240 Other: Voiding Method Toilet Toilet Toilet # Voids 2 1 - Labs CBC & Chem 7: 03/28/21 12:47 03/29/21 12:02 Labs: Abnormal Lab Results - Last 24 Hours (Table) 03/28/21 03/28/21 Range/Units 12:47 12:47 RBC 3.84 L (4.30-5.90) m/uL Hgb 9.7 L (13.0-17.5) gm/dL Hct 30.8 L (39.0-53.0) % Sodium 135 L (137-145) mmol/L BUN 8 L (9-20) mg/dL Creatinine 0.63 L (0.66-1.25) mg/dL Glucose 120 H (74-99) mg/dL
[2021-03-29] MEDS: SODIUM CHLORIDE 0.9% 1,000 ML IV SCH (14:42)
[2021-03-29 19:53] VITALS: BP 122/67; PULSE 100
[2021-03-30] MEDS ORDERED: VANCOMYCIN TROUGH DUE 1 EACH MISC MISCELLANE ONE (09:00)
== END 2021-03-29 20:21 | disposition other institution (70) | DRG 871 ==
LOC: EC 22:23 → 4SSUR 03-19 01:08 → 3SCARD 03-23 21:09
PROVIDERS: ADMIT Hospitalist; ATTEND Hospitalist
PROC: B24BZZ4 Ultrasonography of Heart with Aorta, Transesophageal (ICD-10-PCS; principal; 2021-03-20 15:10)
DX: A41.9 Sepsis, unspecified organism (principal); I33.0 Acute and subacute infective endocarditis; I26.90 Septic pulmonary embolism without acute cor pulmonale; E87.1 Hypo-osmolality and hyponatremia; I76 Septic arterial embolism; J98.11 Atelectasis; F41.9 Anxiety disorder, unspecified; F32.9 Major depressive disorder, single episode, unspecified; Z20.822 Contact with and (suspected) exposure to COVID-19; I07.1 Rheumatic tricuspid insufficiency; J98.4 Other disorders of lung; F11.11 Opioid abuse, in remission; Z86.19 Personal history of other infectious and parasitic diseases; R00.0 Tachycardia, unspecified
CPT/HCPCS: 36415; 71046; 71275; 80048; 80053; 80074; 80202; 82565; 83605; 83735; 84484; 85025; 85027; 85379; 85610; 85652; 85730; 86140; 87040; 87070; 87205; 87390; 87635; 93005; 93306; 93312; 93320; 93325; 94760; 96360; 99283; 99291

== ENCOUNTER 2021-05-09 02:15 | Inpatient (IN) | payer OTHER ==
--- NOTE | 2021-05-09 02:24 | ED ---
Overdose HPI - General Chief Complaint: Overdose Stated Complaint: Overdose Time Seen by Provider: 05/09/21 02:22 Source: patient, EMS, RN notes reviewed, old records reviewed Mode of arrival: EMS Limitations: no limitations - History of Present Illness Initial Comments: This is a 36 year old male presenting for overdose. Patient has heroin overdose accidental was started earlier today. Patient did not lose pulse a mild loss of consciousness. Not requiring Narcan. Patient does have history of heroin abuse past and overdose MD Complaint: accidental overdose -: minutes(s) Intent: unwilling to say How Overdose Was Discovered: family/friend present at time, called 911 Context: Intentional Overdose: drug/ETOH problems Context: Accidental Overdose: wanted to get high Associated Symptoms: paranoia Treatments Prior to Arrival: none - Related Data Previous Rx's Medication Instructions Recorded Levofloxacin [Levaquin] 750 mg PO DAILY 5 Days #5 tab 03/18/21 Allergies Allergy/AdvReac Type Severity Reaction Status Date / Time No Known Allergies Allergy Verified 03/19/21 06:18 Review of Systems ROS Statement: Those systems with pertinent positive or pertinent negative responses have been documented in the HPI. ROS Other: All systems not noted in ROS Statement are negative. Past Medical History Past Medical History: No Reported History History of Any Multi-Drug Resistant Organisms: None Reported Past Surgical History: No Surgical Hx Reported Past Psychological History: Anxiety, Depression Smoking Status: Former smoker Past Alcohol Use History: None Reported Past Drug Use History: Heroin, IV Drug Use, Marijuana, Methamphetamine General Exam General appearance: alert, in no apparent distress, anxious, in distress Head exam: Present: atraumatic, normocephalic, normal inspection Eye exam: Present: normal appearance, PERRL, EOMI. Absent: scleral icterus, conjunctival injection, periorbital swelling ENT exam: Present: normal exam, mucous membranes moist Neck exam: Present: normal inspection. Absent: tenderness, meningismus, lymphadenopathy Respiratory exam: Present: normal lung sounds bilaterally. Absent: respiratory distress, wheezes, rales, rhonchi, stridor Cardiovascular Exam: Present: tachycardia, irregular rhythm, normal heart sounds. Absent: systolic murmur, diastolic murmur, rubs, gallop, clicks GI/Abdominal exam: Present: soft, normal bowel sounds. Absent: distended, tenderness, guarding, rebound, rigid Extremities exam: Present: normal inspection, full ROM, normal capillary refill. Absent: tenderness, pedal edema, joint swelling, calf tenderness Back exam: Present: normal inspection Neurological exam: Present: alert, oriented X3, CN II-XII intact Psychiatric exam: Present: normal affect, normal mood Skin exam: Present: warm, dry, intact, normal color. Absent: rash Course Vital Signs 05/09/21 05/09/21 02:17 03:24 Temperature 97.3 F L Pulse Rate 120 H 79 Respiratory 18 20 Rate Blood Pressure 132/90 90/60 O2 Sat by Pulse 100 98 Oximetry - Reevaluation(s) Reevaluation #1: 05/09/21 02:24 medical record is reviewed Reevaluation #2: 05/09/21 03:04 Worsening here in the ER with increasing heart rate, now is found to be in onset new-onset atrial fibrillation Reevaluation #3: 05/09/21 04:41 Patient does have improvement in heart rate here in the ER No normal sinus rhythm States he still does not feel well - Consultations Consultation #1: Spoke with sound physicians will admit the patient Medical Decision Making - Medical Decision Making 36 male comes to the ER today presenting after opiate overdose presenting now in nature fibrillation with RVR which he did convert out of atrial fibrillation with RVR and normal sinus rhythm. Patient will be admitted for cardiology to evaluate with history of CAD attending agitation and mass, endocarditis. - Lab Data Result diagrams: 05/09/21 03:07 05/09/21 03:07 Lab Results 05/09/21 05/09/21 05/09/21 Range/Units 03:07 03:07 03:07 WBC 13.7 H (3.8-10.6) k/uL RBC 4.96 (4.30-5.90) m/uL Hgb 13.4 D (13.0-17.5) gm/dL Hct 42.3 (39.0-53.0) % MCV 85.3 D (80.0-100.0) fL MCH 27.1 (25.0-35.0) pg MCHC 31.8 (31.0-37.0) g/dL RDW 16.0 H (11.5-15.5) % Plt Count 215 (150-450) k/uL MPV 8.2 Neutrophils % 87 % Lymphocytes % 9 % Monocytes % 4 % Eosinophils % 0 % Basophils % 0 % Neutrophils # 11.9 H (1.3-7.7) k/uL Lymphocytes # 1.2 (1.0-4.8) k/uL Monocytes # 0.5 (0-1.0) k/uL Eosinophils # 0.1 (0-0.7) k/uL Basophils # 0.0 (0-0.2) k/uL Anisocytosis Slight PT 11.3 (9.0-12.0) sec INR 1.1 (<1.2) APTT 26.4 (22.0-30.0) sec D-Dimer 0.27 (<0.60) mg/L FEU Sodium 137 (137-145) mmol/L Potassium 4.1 (3.5-5.1) mmol/L Chloride 102 (98-107) mmol/L Carbon Dioxide 28 (22-30) mmol/L Anion Gap 7 mmol/L BUN 19 (9-20) mg/dL Creatinine 0.82 (0.66-1.25) mg/dL Est GFR (CKD-EPI)AfAm >90 (>60 ml/min/1.73 sqM) Est GFR (CKD-EPI)NonAf >90 (>60 ml/min/1.73 sqM) Glucose 159 H (74-99) mg/dL Plasma Lactic Acid Ousmane (0.7-2.0) mmol/L Calcium 8.4 (8.4-10.2) mg/dL Phosphorus 4.3 (2.5-4.5) mg/dL Magnesium 1.7 (1.6-2.3) mg/dL Total Bilirubin 0.6 (0.2-1.3) mg/dL AST 55 (17-59) U/L ALT 51 H (4-49) U/L Alkaline Phosphatase 47 (38-126) U/L NT-Pro-B Natriuret Pep pg/mL Total Protein 6.8 (6.3-8.2) g/dL Albumin 3.9 (3.5-5.0) g/dL TSH 1.340 (0.465-4.680) mIU/L 05/09/21 05/09/21 Range/Units 03:07 03:07 WBC (3.8-10.6) k/uL RBC (4.30-5.90) m/uL Hgb (13.0-17.5) gm/dL Hct (39.0-53.0) % MCV (80.0-100.0) fL MCH (25.0-35.0) pg MCHC (31.0-37.0) g/dL RDW (11.5-15.5) % Plt Count (150-450) k/uL MPV Neutrophils % % Lymphocytes % % Monocytes % % Eosinophils % % Basophils % % Neutrophils # (1.3-7.7) k/uL Lymphocytes # (1.0-4.8) k/uL Monocytes # (0-1.0) k/uL Eosinophils # (0-0.7) k/uL Basophils # (0-0.2) k/uL Anisocytosis PT (9.0-12.0) sec INR (<1.2) APTT (22.0-30.0) sec D-Dimer (<0.60) mg/L FEU Sodium (137-145) mmol/L Potassium (3.5-5.1) mmol/L Chloride (98-107) mmol/L Carbon Dioxide (22-30) mmol/L Anion Gap mmol/L BUN (9-20) mg/dL Creatinine (0.66-1.25) mg/dL Est GFR (CKD-EPI)AfAm (>60 ml/min/1.73 sqM) Est GFR (CKD-EPI)NonAf (>60 ml/min/1.73 sqM) Glucose (74-99) mg/dL Plasma Lactic Acid Ousmane 2.5 H* (0.7-2.0) mmol/L Calcium (8.4-10.2) mg/dL Phosphorus (2.5-4.5) mg/dL Magnesium (1.6-2.3) mg/dL Total Bilirubin (0.2-1.3) mg/dL AST (17-59) U/L ALT (4-49) U/L Alkaline Phosphatase (38-126) U/L NT-Pro-B Natriuret Pep 97 pg/mL Total Protein (6.3-8.2) g/dL Albumin (3.5-5.0) g/dL TSH (0.465-4.680) mIU/L - EKG Data -: EKG Interpreted by Me (EKG is A. fib with RVR 136 QRS 76 QTC 388) EKG shows normal: sinus rhythm (Repeat shows sinus rhythm 70 IA 110 QRS 86 QTc 412) - Radiology Data Radiology results: report reviewed (Chest x-rays negative for acute disease), image reviewed Disposition Clinical Impression: Drug overdose, Accidental drug overdose, Poisoning by opiates and related narcotics, other, New onset atrial fibrillation, Atrial fibrillation with RVR Disposition: ADMITTED IP TO THIS HOSP Condition: Good Is patient prescribed a controlled substance at d/c from ED?: No Referrals: None,Stated [Primary Care Provider] - 1-2 days
[2021-05-09] MEDS ORDERED: cloNIDine 0.1 MG/24HR PATCH TRANSDERM STA (02:37)
[2021-05-09] MEDS ORDERED: PROCHLORPERAZINE INJ 10 MG/2 ML VIAL IVP STA (02:37)
[2021-05-09] MEDS ORDERED: SODIUM CHLORIDE 0.9% 500 ML 500 ML IV STA (02:37)
[2021-05-09] MEDS ORDERED: SODIUM CHLORIDE 0.9% 1,000 ML IV STA ×2 (03:03)
[2021-05-09] MEDS ORDERED: KETOROLAC 15 MG/ML 1 ML VIAL IVP STA (03:03)
[2021-05-09] MEDS ORDERED: DILTIAZEM DRIP BOLUS FROM BAG 1 MG SOLN IV ONE (03:04)
[2021-05-09] MEDS ORDERED: DILTIAZEM 125 MG in SODIUM CHLORIDE 0.9% 100 ML IV SCH (03:15)
[2021-05-09 03:27] LABS: ALT 51 U/L (4-49); African American GFR (CKD) >90 (>60 ml/min/1.73 sqM); Albumin 3.9 g/dL (3.5-5.0); Anion Gap 7 mmol/L; Anisocytosis Slight; Basophils % (A) 0 %; Blood Urea Nitrogen 19 mg/dL (9-20); Calcium 8.4 mg/dL (8.4-10.2); Carbon Dioxide 28 mmol/L (22-30); Chloride 102 mmol/L (98-107); Eosinophils # (A) 0.1 k/uL (0-0.7); Eosinophils % (A) 0 %; Glucose 159 mg/dL (74-99); HCT 42.3 % (39.0-53.0); Lymphocytes # (A) 1.2 k/uL (1.0-4.8); Lymphocytes % (A) 9 %; MCH 27.1 pg (25.0-35.0); MCHC 31.8 g/dL (31.0-37.0); Mean Platelet Volume 8.2; Monocytes # (A) 0.5 k/uL (0-1.0); Monocytes % (A) 4 %; Neutrophils # (A) 11.9 k/uL (1.3-7.7); Neutrophils % (A) 87 %; Non-African American GFR(CKD) >90 (>60 ml/min/1.73 sqM); Platelet Count 215 k/uL (150-450); RBC 4.96 m/uL (4.30-5.90); Sodium 137 mmol/L (137-145); Total Bilirubin 0.6 mg/dL (0.2-1.3); Total Protein 6.8 g/dL (6.3-8.2); WBC 13.7 k/uL (3.8-10.6)
[2021-05-09 03:29] LABS: AST 55 U/L (17-59); Alkaline Phosphatase 47 U/L (38-126); Magnesium 1.7 mg/dL (1.6-2.3); Phosphorus 4.3 mg/dL (2.5-4.5); Potassium 4.1 mmol/L (3.5-5.1)
[2021-05-09 03:33] LABS: INR 1.1 (<1.2); Prothrombin Time 11.3 sec (9.0-12.0)
[2021-05-09 03:34] LABS: Partial Thromboplastin Time 26.4 sec (22.0-30.0)
[2021-05-09 03:40] LABS: HGB 13.4 gm/dL (13.0-17.5); MCV 85.3 fL (80.0-100.0)
[2021-05-09] MEDS ORDERED: MAGNESIUM OXIDE 400 MG TAB PO STA (04:05)
[2021-05-09] MEDS ORDERED: POTASSIUM BICARB-CITRIC ACID 25 MEQ TABLET.EFF PO ONE (04:15)
--- NOTE | 2021-05-09 04:17 | XR ---
EXAMINATION TYPE: XR chest 1V portable DATE OF EXAM: 05/09/2021 COMPARISON: 03/23/2021 HISTORY: Chest pain TECHNIQUE: Tori view FINDINGS: There is minimal linear density at the lung bases. There is no heart failure. Heart size is normal. There is no evidence of pleural effusion. IMPRESSION: There is mild subsegmental atelectasis that is improved compared to old exam. Normal hear t.
[2021-05-09] MEDS: MAGNESIUM SULFATE-D5W PMX 1 GM in DEXTROSE/WATER 1 100ML.BAG IVPB SCH ×2 (04:20→05:23)
[2021-05-09] MEDS ORDERED: ONDANSETRON 4 MG/2 ML VIAL IVP PRN (04:37)
[2021-05-09] MEDS ORDERED: NALOXONE 0.4 MG/ML 1 ML VIAL IV PRN ×2 (04:37→09:03)
[2021-05-09] MEDS: SODIUM CHLORIDE 0.9% 1,000 ML IV SCH ×3 (05:23→20:47)
[2021-05-09 05:24] LABS: Amphetamine Screen,Urine Not Detected (NotDetected); Barbiturate Screen,Urine Not Detected (NotDetected); Benzodiazepines Screen,Urine Detected (NotDetected); Cocaine Screen,Urine Not Detected (NotDetected); Methadone Screen, Urine Not Detected (NotDetected); Opiate Screen,Urine Not Detected (NotDetected); Oxycodone Screen, Urine Not Detected (NotDetected); Phencyclidine Screen,Urine Not Detected (NotDetected); Tricyclic Antidepressant,Urine Not Detected (NotDetected); Urn Cannabinoid Scrn Not Detected (NotDetected)
[2021-05-09] MEDS ORDERED: IBUPROFEN 400 MG TAB PO PRN (09:03)
[2021-05-09] MEDS ORDERED: ACETAMINOPHEN TAB 325 MG TAB PO PRN (09:03)
[2021-05-09] MEDS ORDERED: bisacodyL 5 MG TABLET.DR PO PRN (09:03)
--- NOTE | 2021-05-09 09:10 | P.HPIM ---
History of Present Illness H&P Date: 05/09/21 Chief Complaint: unresponsive Patient is a 36-year-old male with a history of IV drug use in the past, hepatitis C, tricuspid valve endocarditis, and septic pulmonary emboli who presented to the hospital via EMS after being found unresponsive. He was given intranasal Narcan with EMS. On arrival his pulse was 120. Initial laboratory analysis showed white blood cell count of 13.7, plasma lactic acid of 2.5, and ALT of 51. Initial EKG revealed A. fib with rapid ventricular response. Patient was given a bolus of Cardizem and started on Cardizem drip. He also had a clonidine patch applied. Patient did have a Cardizem drip started at 5 and apparently converted into normal sinus rhythm while in the ER. Due to his consistency with sepsis and prior history of tricuspid valve endocarditis arrangements were made for admission. Patient was admitted here from 03/19 through 03/20 due to septic emboli with cavitary lesion, endocarditis with perforated tricuspid valve severe tricuspid regurgitation with vegetations on the anterior and posterior leaflets. Patient was subsequently transferred to the [facility]. Patient seen and examined at bedside. . His very lethargic but then wakes up and talks but easily falls back asleep without stimulation. He reports that he used heroin snorting for the first time in quite a while. He reports he did not take more than normal. He is unsure if it could've been Lasix and other drugs such as fentanyl. Currently he just feels very tired and mellitus hard to move. He denies any shortness of breath or chest discomfort. He states that he recently completed his antibiotics by mouth from [facility] for infective endocarditis. He is supposed to be following up there. He has not yet had heart surgery but may need valve replacement in the future. He is unable to stay awake long enough to discuss the rest of his medical history. He does endorse a history of hepatitis C. he denies any dysuria or urinary frequency. PUnable to obtain full review of systems, past medical hx, surgical hx and family hx due to level of sedation. Thorough record review completed including ED visit today and last admission 03/19 through 03/20. General: non toxic, no distress, appears at stated age Derm: warm, dry Head: atraumatic, normocephalic, symmetric Eyes: EOMI, no lid lag, anicteric sclera, pupils equal round reactive to light ENT: Nose and ears atraumatic, no thrush, no pharyngeal erythema Neck: No thyromegaly, no cervical lymphadenopathy, trachea midline, supple Mouth: no lip lesion, mucus membranes moist Cardiovascular: S1S2 reg, noappreciable murmur, positive posterior tibial pulse bilateral, no edema, capillary refill less than 2 seconds Lungs:decreased breath sounds bilateral bases , no ronchi, no rales, no wheeze, no accessory muscle use Abdominal: soft, nontender to palpation, no guarding, no appreciable organomegaly, normal bowel sounds Ext: no gross muscle atrophy, muscle strength muscle strength 5 out of 5 in all 4 extremities, no contractures Neuro: CN II-XI grossly intact, light touch intact all 4 extremities Psych: Stuperous, oriented, appropriate affect Assessment/Plan: Unitentional Overdose with hx of IVDA - limit sedative, social work consult A fib wtih RVR on arrival - possible SVT ?? Await cardio review - D/C cardizem gtt - tele - check Mg level - CHADSVASC 0 Elevated Troponin Recent infective endocarditis of tricuspid valve - follow troponin - tele - cardio consult - echo - outpatient f/u at [facility] SIRS criteria lactic acidosis - await blood cultures - chest x-ray negative, no signs or symptoms of urinary tract infection -Blood cultures have been negative last hospitalization - IVF fluids - suspect due to over dose - clinically doubt Sepsis, monitor closely for sepsis, no antibiotics at this time - repeat CBC in AM Hep C - outpatient follow-up The patient is placed in observation with an anticipated less than 2 midnight stay for evaluation of overdose Surrogate decision-maker: sister CODE STATUS:full DVT prophylaxis: lovenox Discussed with: patient, nursing,ed provider Anticipated discharge date: undetermined Anticipated discharge place: home A total of 65 minutes was spent on the care of this complex patient more than 50% of the time was spent in counseling and care coordination. Past Medical History Additional Past Medical History / Comment(s): Hep C, Tricuspid valve endocarditis History of Any Multi-Drug Resistant Organisms: None Reported Past Surgical History: No Surgical Hx Reported Past Psychological History: Anxiety, Depression Smoking Status: Former smoker Past Alcohol Use History: None Reported Past Drug Use History: Heroin, IV Drug Use, Marijuana, Methamphetamine Medications and Allergies Home Medications Medication Instructions Recorded Confirmed Type No Known Home Medications 05/09/21 05/09/21 History Allergies Allergy/AdvReac Type Severity Reaction Status Date / Time No Known Allergies Allergy Verified 05/09/21 06:53 Physical Exam Osteopathic Statement: *. No significant issues noted on an osteopathic structural exam other than those noted in the History and Physical/Consult. Vitals: Vital Signs Temp Pulse Resp BP Pulse Ox 05/09/21 08:06 66 14 108/58 96 05/09/21 06:29 98.5 F 66 18 92/46 98 05/09/21 05:17 67 18 92/53 98 05/09/21 04:48 70 18 97/50 97 05/09/21 03:24 79 20 90/60 98 05/09/21 02:17 97.3 F L 120 H 18 132/90 100 Intake and Output 05/08/21 05/09/21 05/09/21 22:59 06:59 14:59 Intake Total 0.75 Balance 0.75 Intake: Intake, IV Titration 0.75 Amount Diltiazem 125 mg In 0.75 Sodium Chloride 0.9% 100 ml @ 5 MG/HR 5 mls/hr IV .Q24H [facility] Rx#:[id number] Other: Weight 79.379 kg Results CBC & Chem 7: 05/09/21 03:07 05/09/21 03:07 Labs: Abnormal Lab Results - Last 24 Hours (Table) 05/09/21 05/09/21 05/09/21 Range/Units 03:07 03:07 03:07 WBC 13.7 H (3.8-10.6) k/uL RDW 16.0 H (11.5-15.5) % Neutrophils # 11.9 H (1.3-7.7) k/uL Glucose 159 H (74-99) mg/dL Plasma Lactic Acid Ousmane 2.5 H* (0.7-2.0) mmol/L ALT 51 H (4-49) U/L Troponin I (0.000-0.034) ng/mL U Benzodiazepines Scrn (NotDetected) 05/09/21 05/09/21 05/09/21 Range/Units 03:07 05:01 06:29 WBC (3.8-10.6) k/uL RDW (11.5-15.5) % Neutrophils # (1.3-7.7) k/uL Glucose (74-99) mg/dL Plasma Lactic Acid Ousmane (0.7-2.0) mmol/L ALT (4-49) U/L Troponin I 0.093 H* 0.318 H* (0.000-0.034) ng/mL U Benzodiazepines Scrn Detected H (NotDetected)
--- NOTE | 2021-05-09 10:51 | P.CRDCN ---
History of Present Illness Consult date: 05/09/21 History of present illness: This is a 36-year-old gentleman with history of diabetes, hepatitis C and tricuspid valve endocarditis was being followed at [facility], is admitted to the hospital where EMS after he was found to be unresponsive. Apparently was given intravenously Narcan. On arrival patient was found to be in atrial fibrillation with rapid ventricular response. Patient was initiated on Cardizem bolus and drip and patient converted to sinus rhythm. Patient apparently overdosed by accident. He denies any chest pain. Denies any shortness of breath. Apparently is waiting to have surgery for his tricuspid regurgitation. He apparently finished a course of antibiotics recently. At the time of my examination patient is still drowsy but arousable. Doesn't appear to be in acute distress. His blood pressures running in the 90 systolic. Heart rate is controlled. I will initiate on small dose of beta shefali as tolerated and baby aspirin. His troponins are mildly elevated. We will get an echocardiogram to assess LV function. He is being worked up for possible underlying sepsis. However, clinically doesn't appear to be septic. Further recommendations depend upon the clinical course Review of Systems As per the chart Past Medical History Past Medical History: No Reported History Additional Past Medical History / Comment(s): Hep C, Tricuspid valve endocarditis History of Any Multi-Drug Resistant Organisms: None Reported Past Surgical History: No Surgical Hx Reported Past Psychological History: Anxiety, Depression Smoking Status: Former smoker Past Alcohol Use History: None Reported Past Drug Use History: Heroin, IV Drug Use, Marijuana, Methamphetamine Medications and Allergies Home Medications Medication Instructions Recorded Confirmed Type No Known Home Medications 05/09/21 05/09/21 History Allergies Allergy/AdvReac Type Severity Reaction Status Date / Time No Known Allergies Allergy Verified 05/09/21 06:53 Physical Exam Vitals: Vital Signs Temp Pulse Resp BP Pulse Ox 05/09/21 09:00 68 15 90/47 96 05/09/21 08:06 66 14 108/58 96 05/09/21 06:29 98.5 F 66 18 92/46 98 05/09/21 05:17 67 18 92/53 98 05/09/21 04:48 70 18 97/50 97 05/09/21 03:24 79 20 90/60 98 05/09/21 02:17 97.3 F L 120 H 18 132/90 100 Intake and Output 05/08/21 05/09/21 05/09/21 22:59 06:59 14:59 Intake Total 0.75 Balance 0.75 Intake: Intake, IV Titration 0.75 Amount Diltiazem 125 mg In 0.75 Sodium Chloride 0.9% 100 ml @ 5 MG/HR 5 mls/hr IV .Q24H [facility] Rx#:[id number] Other: Weight 79.379 kg GENERAL EXAM: Patient is sleepy but arousable HEENT: Normocephalic. Normal reaction of pupils, equal size, normal range of extraocular motion. No erythema or exudates in the throat. NECK: No masses, no nuchal rigidity. CHEST: No chest wall deformity. LUNGS: Equal air entry with no crackles or wheeze. HEART: S1 and S2 normal. Systolic murmur heard in the fourth intercostal space close to the sternal border ABDOMEN: No hepatosplenomegaly, normal bowel sounds, no guarding or rigidity. SKIN: No rashes CENTRAL NERVOUS SYSTEM: Deferred EXTREMITIES: No cyanosis, clubbing or edema. Results 05/09/21 03:07 05/09/21 03:07 Cardiac Enzymes 05/09/21 05/09/21 05/09/21 Range/Units 03:07 03:07 06:29 AST 55 (17-59) U/L Troponin I 0.093 H* 0.318 H* (0.000-0.034) ng/mL 05/09/21 Range/Units 08:46 AST (17-59) U/L Troponin I 0.328 H* (0.000-0.034) ng/mL Coagulation 05/09/21 Range/Units 03:07 PT 11.3 (9.0-12.0) sec APTT 26.4 (22.0-30.0) sec CBC 05/09/21 Range/Units 03:07 WBC 13.7 H (3.8-10.6) k/uL RBC 4.96 (4.30-5.90) m/uL Hgb 13.4 D (13.0-17.5) gm/dL Hct 42.3 (39.0-53.0) % Plt Count 215 (150-450) k/uL Comprehensive Metabolic Panel 05/09/21 Range/Units 03:07 Sodium 137 (137-145) mmol/L Potassium 4.1 (3.5-5.1) mmol/L Chloride 102 (98-107) mmol/L Carbon Dioxide 28 (22-30) mmol/L BUN 19 (9-20) mg/dL Creatinine 0.82 (0.66-1.25) mg/dL Glucose 159 H (74-99) mg/dL Calcium 8.4 (8.4-10.2) mg/dL AST 55 (17-59) U/L ALT 51 H (4-49) U/L Alkaline Phosphatase 47 (38-126) U/L Total Protein 6.8 (6.3-8.2) g/dL Albumin 3.9 (3.5-5.0) g/dL Current Medications Generic Name Dose Route Start Last Admin Trade Name Freq PRN Reason Stop Dose Admin Acetaminophen 650 mg 05/09/21 09:03 Acetaminophen Tab 325 Mg Tab PO Q6HR PRN Mild Pain or Fever > 100.5 Aspirin 81 mg 05/09/21 21:00 Aspirin 81 Mg PO HS ESTHER Bisacodyl 5 mg 05/09/21 09:03 Bisacodyl 5 Mg Tablet.Dr PO DAILY PRN Constipation Diltiazem HCl 125 mg/ Sodium 125 mls @ 5 mls/hr 05/09/21 03:15 05/09/21 03:24 Chloride IV 0 mg/hr .Q24H ESTHER 0 mls/hr Infusion 5 MG/HR Sodium Chloride 1,000 mls @ 100 mls/hr 05/09/21 04:45 05/09/21 05:23 Saline 0.9% IV Not Given .Q10H [facility] Ibuprofen 400 mg 05/09/21 09:03 Ibuprofen 400 Mg Tab PO Q6HR PRN Mild Pain or Fever > 100.5 Metoprolol Tartrate 12.5 mg 05/09/21 09:00 Metoprolol Tartrate 12.5 Mg Tab PO BID ESTHER Naloxone HCl 0.2 mg 05/09/21 04:37 Naloxone 0.4 Mg/Ml 1 Ml Vial IV Q2M PRN Opioid Reversal Ondansetron HCl 4 mg 05/09/21 04:37 Ondansetron 4 Mg/2 Ml Vial IVP Q8HR PRN Nausea And Vomiting Intake and Output 05/08/21 05/09/21 05/09/21 22:59 06:59 14:59 Intake Total 0.75 Balance 0.75 Intake: Intake, IV Titration 0.75 Amount Diltiazem 125 mg In 0.75 Sodium Chloride 0.9% 100 ml @ 5 MG/HR 5 mls/hr IV .Q24H [facility] Rx#:[id number] Other: Weight 79.379 kg 05/09/21 03:07 05/09/21 03:07 EKG Interpretations (text) Initial EKG showed atrial fibrillation with rapid ventricular response Assessment and Plan (1) History of endocarditis Current Visit: Yes Status: Acute Code(s): Z86.79 - PERSONAL HISTORY OF OTHER DISEASES OF THE CIRCULATORY SYSTEM SNOMED Code(s): 417348217 (2) Accidental drug overdose Current Visit: Yes Status: Acute Code(s): T50.901A - POISONING BY UNSP DRUG/MEDS/BIOL SUBST, ACCIDENTAL, INIT SNOMED Code(s): 5135032970 (3) Atrial fibrillation with RVR Current Visit: Yes Status: Acute Code(s): I48.91 - UNSPECIFIED ATRIAL FIBRILLATION SNOMED Code(s): 606591190749646 (4) Cavitating mass of lung Current Visit: No Status: Acute Code(s): J98.4 - OTHER DISORDERS OF LUNG SNOMED Code(s): 99472686 (5) Troponin level elevated Current Visit: Yes Status: Acute Code(s): R77.8 - OTHER SPECIFIED ABNORMALITIES OF PLASMA PROTEINS SNOMED Code(s): 142958484 Plan: Patient is back in sinus rhythm. I'll continue metoprolol and aspirin. We will continue to follow his troponin on get an echocardiogram. The cavity picture is not consistent with acute coronary syndrome. Most probably the troponin elevation is from a supply demand mismatch. Further recommendations depend upon clinical course
[2021-05-09] MEDS: METOPROLOL TARTRATE 12.5 MG TAB PO SCH (16:41)
[2021-05-09] MEDS: ASPIRIN 81 MG PO SCH (20:47)
[2021-05-10] MEDS: METOPROLOL TARTRATE 12.5 MG TAB PO SCH ×3 (01:54→21:22)
[2021-05-10] MEDS: SODIUM CHLORIDE 0.9% 1,000 ML IV SCH (05:26)
[2021-05-10 08:04] LABS: Anisocytosis Slight; Basophils % (A) 1 %; Eosinophils # (A) 0.1 k/uL (0-0.7); Eosinophils % (A) 1 %; HCT 40.1 % (39.0-53.0); HGB 12.1 gm/dL (13.0-17.5); Hypochromasia Slight; Lymphocytes # (A) 2.1 k/uL (1.0-4.8); Lymphocytes % (A) 42 %; MCH 27.2 pg (25.0-35.0); MCHC 30.3 g/dL (31.0-37.0); MCV 89.9 fL (80.0-100.0); Mean Platelet Volume 8.3; Monocytes # (A) 0.3 k/uL (0-1.0); Monocytes % (A) 5 %; Neutrophils # (A) 2.4 k/uL (1.3-7.7); Neutrophils % (A) 49 %; Platelet Count 196 k/uL (150-450); RBC 4.46 m/uL (4.30-5.90)
[2021-05-10 08:15] LABS: ALT 48 U/L (4-49); AST 41 U/L (17-59); African American GFR (CKD) >90 (>60 ml/min/1.73 sqM); Albumin 3.4 g/dL (3.5-5.0); Alkaline Phosphatase 44 U/L (38-126); Anion Gap 2 mmol/L; Blood Urea Nitrogen 16 mg/dL (9-20); Calcium 8.7 mg/dL (8.4-10.2); Carbon Dioxide 32 mmol/L (22-30); Chloride 102 mmol/L (98-107); Glucose 110 mg/dL (74-99); Magnesium 2.3 mg/dL (1.6-2.3); Non-African American GFR(CKD) >90 (>60 ml/min/1.73 sqM); Phosphorus 3.5 mg/dL (2.5-4.5); Potassium 4.9 mmol/L (3.5-5.1); Sodium 136 mmol/L (137-145); Total Bilirubin 0.4 mg/dL (0.2-1.3); Total Protein 6.2 g/dL (6.3-8.2)
--- NOTE | 2021-05-10 09:51 | P.PN ---
Subjective Progress Note Date: 05/10/21 This 36-year-old gentleman with history of hepatitis C, diabetes and tricuspid valve endocarditis and also drug abuse was admitted to the hospital with accidental drug abuse. He was found to have atrial fibrillation with rapid ventricular response. Patient converted to sinus rhythm and has been in sinus rhythm. Still complaints of weakness and some shortness of breath with exertion doesn't appear to be in acute distress. His troponin values are mildly elevated but most probably related to supply demand mismatch. I don't think consistent with a non-STEMI. He is not having any chest pain. We are waiting for an echocardiogram. Patient is known to have severe tricuspid regurgitation and apparently waiting to have repair done at [facility]. Objective - Vital Signs Vital signs: Vital Signs Temp 97.7 F 05/10/21 03:19 Pulse 71 05/10/21 03:19 Resp 16 05/10/21 03:19 BP 107/57 05/10/21 03:19 Pulse Ox 95 05/10/21 03:19 Intake & Output 05/09/21 05/10/21 05/10/21 18:59 06:59 18:59 Intake Total 480 360 Balance 480 360 Weight 78.3 kg Intake: Oral 480 360 Other: # Voids 1 - Exam GENERAL EXAM: Patient is alert and oriented and doesn't appear to be in any acute distress HEENT: Normocephalic. Normal reaction of pupils, equal size, normal range of extraocular motion. No erythema or exudates in the throat. NECK: No masses, no nuchal rigidity. CHEST: No chest wall deformity. LUNGS: Equal air entry with no crackles or wheeze. HEART: S1 and S2 normal with no audible mumurs or gallops. Regular rhythm, femorals equal on both sides.. ABDOMEN: No hepatosplenomegaly, normal bowel sounds, no guarding or rigidity. SKIN: No rashes CENTRAL NERVOUS SYSTEM: No focal deficits. EXTREMITIES: No cyanosis, clubbing or edema. - Labs CBC & Chem 7: 05/10/21 07:21 05/10/21 07:21 Labs: Abnormal Lab Results - Last 24 Hours (Table) 05/09/21 05/10/21 05/10/21 Range/Units 08:46 07:21 07:21 Hgb 12.1 L (13.0-17.5) gm/dL MCHC 30.3 L (31.0-37.0) g/dL RDW 16.0 H (11.5-15.5) % Sodium 136 L (137-145) mmol/L Carbon Dioxide 32 H (22-30) mmol/L Glucose 110 H (74-99) mg/dL Troponin I 0.328 H* (0.000-0.034) ng/mL Total Protein 6.2 L (6.3-8.2) g/dL Albumin 3.4 L (3.5-5.0) g/dL Microbiology - Last 24 Hours (Table) 05/09/21 06:57 Blood Culture - Preliminary Blood No Growth after 24 hours 05/09/21 06:50 Blood Culture - Preliminary Blood No Growth after 24 hours Assessment and Plan (1) History of endocarditis Current Visit: Yes Status: Acute Code(s): Z86.79 - PERSONAL HISTORY OF OTHER DISEASES OF THE CIRCULATORY SYSTEM SNOMED Code(s): 863401227 (2) Accidental drug overdose Current Visit: Yes Status: Acute Code(s): T50.901A - POISONING BY UNSP DRUG/MEDS/BIOL SUBST, ACCIDENTAL, INIT SNOMED Code(s): 0153852217 (3) Atrial fibrillation with RVR Current Visit: Yes Status: Acute Code(s): I48.91 - UNSPECIFIED ATRIAL FIBRILLATION SNOMED Code(s): 097635183818340 (4) Cavitating mass of lung Current Visit: No Status: Acute Code(s): J98.4 - OTHER DISORDERS OF LUNG SNOMED Code(s): 73912605 (5) Troponin level elevated Current Visit: Yes Status: Acute Code(s): R77.8 - OTHER SPECIFIED ABNORMALITIES OF PLASMA PROTEINS SNOMED Code(s): 144620068 Plan: Echocardiogram. If there are no segmental wall motion defects. Patient could be discharged home on metoprolol and aspirin. Follow-up at [facility] for is tricuspid regurgitation.
--- NOTE | 2021-05-10 11:54 | ECHOF ---
Referral Reason:Abnormal troponin MEASUREMENTS -------- HEIGHT: 180.3 cm WEIGHT: 78.0 kg BP: RVIDd: 3.4 cm (< 3.3) IVSd: 1.0 cm (0.6 - 1.1) LVIDd: 4.7 cm (3.9 - 5.3) LVPWd: 0.9 cm (0.6 - 1.1) IVSs: 1.5 cm LVIDs: 3.3 cm LVPWs: 1.5 cm RAP: 5.00 mmHg RVSP: 29.14 mmHg FINDINGS -------- Limited Study The left ventricular size is normal. Left ventricular wall thickness is normal. Overall left vent ricular systolic function is mild-moderately impaired with, an EF between 40 - 45 %. Severe tricuspid regurgitation present. Right ventricular systolic pressure is normal at < 35 mmHg. Pt has known vegetation on the tricuspid valve. There is no pericardial effusion. CONCLUSIONS -------- 1. Limited Study 2. The left ventricular size is normal. 3. Left ventricular wall thickness is normal. 4. Overall left ventricular systolic function is mild-moderately impaired with, an EF between 40 - 45 %. 5. Severe tricuspid regurgitation present. 6. Pt has known vegetation on the tricuspid valve. EDUCATIONAL AIDE: Alysia Garcia RDCS
[2021-05-10] MEDS: APIXABAN 5 MG TAB PO SCH ×2 (12:16→21:22)
--- NOTE | 2021-05-10 15:23 | P.PN ---
Subjective Progress Note Date: 05/10/21 (Delayed charting seen at 1300) Principal diagnosis: unresponsive Patient is a 36-year-old male with a history of IV drug use in the past, hepatitis C, tricuspid valve endocarditis, and septic pulmonary emboli who presented to the hospital via EMS after being found unresponsive. He was given intranasal Narcan with EMS. On arrival his pulse was 120. Initial laboratory analysis showed white blood cell count of 13.7, plasma lactic acid of 2.5, and ALT of 51. Initial EKG revealed A. fib with rapid ventricular response. Patient was given a bolus of Cardizem and started on Cardizem drip. He also had a clonidine patch applied. Patient did have a Cardizem drip started at 5 and apparently converted into normal sinus rhythm while in the ER. Due to concerns for sepsis and prior history of tricuspid valve endocarditis arrangements were made for admission. He was seen by cardiology. He underwent echocardiogram which showed an ejection fraction of 40-45% with tricuspid vegetation that was normal prior. Patient was admitted here from 03/19 through 03/20 due to septic emboli with cavitary lesion, endocarditis with perforated tricuspid valve severe tricuspid regurgitation with vegetations on the anterior and posterior leaflets. Patient was subsequently transferred to the [facility]. Patient seen and examined at bedside. He denies any chest pain, shortness of breath, nausea, vomiting. He reports that he relapsed with first time in 4 months. He is currently at a sober living house. He is asking to meet with social work for help son in turning into a residential treatment program again. He does have plans to follow-up with [facility]. He was last seen there approximately 1-2 weeks ago. He has finished his doses of oral antibiotics. He also had delving of and vancomycin prior. He reports that he thinks his ejection fraction was 60% when he left [facility]. We discussed the importance of abstaining from illicit drugs and he is aware. General: non toxic, no distress, appears at stated age Derm: warm, dry, multiple tattoos Head: atraumatic, normocephalic, symmetric Eyes: EOMI, no lid lag, anicteric sclera Mouth: no lip lesion, mucus membranes moist Cardiovascular: S1S2 reg, no murmur, positive posterior tibial pulse bilateral, Lungs: CTA bilateral, no rhonchi, no rales , no accessory muscle use Abdominal: soft, nontender to palpation, no guarding, no appreciable organomegaly Ext: no gross muscle atrophy, no edema, no contractures Neuro: CN II-XI grossly intact, no focal neuro deficits Psych: Alert, oriented, appropriate affect Assessment/Plan: Unitentional Overdose with hx of IVDA - social work consult - encourage abstinence A fib wtih RVR on arrival Elevated Troponin Recent infective endocarditis of tricuspid valve Systolic cardiomyopathy with ejection fraction 40-45% - cardio recs- On beta shefali and ACEI - CHADSVASC 0 -Obtain records from [facility] - tele - outpatient f/u at [facility] SIRS criteria, resolved lactic acidosis, resolved - await blood cultures X 48 hours Hep C - outpatient follow-up DVT prophylaxis: Eliquis Discussed with: patient, nursing,ed provider Anticipated discharge date:likely in AM Anticipated discharge place: home A total of 40 minutes was spent on the care of this complex patient more than 50% of the time was spent in counseling and care coordination. Objective - Vital Signs Vital signs: Vital Signs Temp 98.3 F 05/10/21 10:03 Pulse 73 05/10/21 10:03 Resp 16 05/10/21 10:03 BP 112/69 05/10/21 10:03 Pulse Ox 100 05/10/21 10:03 Intake & Output 05/09/21 05/10/21 05/10/21 18:59 06:59 18:59 Intake Total 480 360 Balance 480 360 Weight 78.3 kg Intake: Oral 480 360 Other: # Voids 1 - Labs CBC & Chem 7: 05/10/21 07:21 05/10/21 07:21 Labs: Abnormal Lab Results - Last 24 Hours (Table) 05/10/21 05/10/21 Range/Units 07:21 07:21 Hgb 12.1 L (13.0-17.5) gm/dL MCHC 30.3 L (31.0-37.0) g/dL RDW 16.0 H (11.5-15.5) % Sodium 136 L (137-145) mmol/L Carbon Dioxide 32 H (22-30) mmol/L Glucose 110 H (74-99) mg/dL Total Protein 6.2 L (6.3-8.2) g/dL Albumin 3.4 L (3.5-5.0) g/dL Microbiology - Last 24 Hours (Table) 05/09/21 06:57 Blood Culture - Preliminary Blood No Growth after 24 hours 05/09/21 06:50 Blood Culture - Preliminary Blood No Growth after 24 hours
[2021-05-10] MEDS: ASPIRIN 81 MG PO SCH (21:23)
[2021-05-11 07:25] LABS: HCT 39.3 % (39.0-53.0); HGB 12.6 gm/dL (13.0-17.5); MCH 27.8 pg (25.0-35.0); MCHC 32.1 g/dL (31.0-37.0); MCV 86.7 fL (80.0-100.0); Mean Platelet Volume 8.3; Platelet Count 211 k/uL (150-450); RBC 4.54 m/uL (4.30-5.90); RDW 15.7 % (11.5-15.5); WBC 6.9 k/uL (3.8-10.6)
[2021-05-11 07:34] LABS: African American GFR (CKD) >90 (>60 ml/min/1.73 sqM); Anion Gap 5 mmol/L; Blood Urea Nitrogen 10 mg/dL (9-20); Calcium 9.2 mg/dL (8.4-10.2); Carbon Dioxide 31 mmol/L (22-30); Chloride 102 mmol/L (98-107); Glucose 92 mg/dL (74-99); Non-African American GFR(CKD) >90 (>60 ml/min/1.73 sqM); Potassium 4.6 mmol/L (3.5-5.1); Sodium 138 mmol/L (137-145)
--- NOTE | 2021-05-11 09:00 | P.PN ---
Subjective Progress Note Date: 05/11/21 Principal diagnosis: Paroxysmal atrial fibrillation The patient is a 36-year-old patient with history of hepatitis C as well as history of endocarditis who we consulted for paroxysmal atrial fibrillation. The patient was seen this morning. He remains asymptomatic from a cardio vascular standpoint of view. He remains hemodynamically stable. He has been maintaining normal sinus mechanism. Currently he is on oral anticoagulation. Objective - Vital Signs Vital signs: Vital Signs Temp 97.6 F 05/11/21 03:33 Pulse 68 05/11/21 03:33 Resp 16 05/11/21 03:33 BP 116/75 05/11/21 03:33 Pulse Ox 98 05/11/21 03:33 Intake & Output 05/10/21 05/11/21 05/11/21 18:59 06:59 18:59 Intake Total 360 Balance 360 Intake: Oral 360 Other: # Voids 2 1 - Constitutional General appearance: Present: no acute distress - Respiratory Respiratory: bilateral: CTA - Cardiovascular Rhythm: regular Heart sounds: normal: S1, S2 Abnormal Heart Sounds: Present: systolic murmur - Labs CBC & Chem 7: 05/11/21 06:48 05/11/21 06:48 Labs: Abnormal Lab Results - Last 24 Hours (Table) 05/11/21 05/11/21 Range/Units 06:48 06:48 Hgb 12.6 L (13.0-17.5) gm/dL RDW 15.7 H (11.5-15.5) % Carbon Dioxide 31 H (22-30) mmol/L Microbiology - Last 24 Hours (Table) 05/09/21 06:57 Blood Culture - Preliminary Blood No Growth after 24 hours 05/09/21 06:50 Blood Culture - Preliminary Blood No Growth after 24 hours Assessment and Plan Assessment: Assessment #1 paroxysmal atrial fibrillation #2 history of endocarditis #3 history of drug abuse Plan #1 continue the current dose of beta shefali #2 continue oral anticoagulation #3 possible discharge in the next 12-24 hour
[2021-05-11] MEDS: APIXABAN 5 MG TAB PO SCH ×2 (09:48→20:21)
[2021-05-11] MEDS: METOPROLOL TARTRATE 12.5 MG TAB PO SCH ×2 (09:48→20:20)
--- NOTE | 2021-05-11 17:37 | P.PN ---
Subjective Progress Note Date: 05/11/21 (delayed charting seen at 1005) Principal diagnosis: unresponsive Patient is a 36-year-old male with a history of IV drug use in the past, hepatitis C, tricuspid valve endocarditis, and septic pulmonary emboli who presented to the hospital via EMS after being found unresponsive. He was given intranasal Narcan with EMS. On arrival his pulse was 120. Initial laboratory analysis showed white blood cell count of 13.7, plasma lactic acid of 2.5, and ALT of 51. Initial EKG revealed A. fib with rapid ventricular response. Patient was given a bolus of Cardizem and started on Cardizem drip. He also had a clonidine patch applied. Patient did have a Cardizem drip started at 5 and apparently converted into normal sinus rhythm while in the ER. Due to concerns for sepsis and prior history of tricuspid valve endocarditis arrangements were made for admission. He was seen by cardiology. He underwent echocardiogram which showed an ejection fraction of 40-45% with tricuspid vegetation that was normal prior. He was started on lisinopril in addition to metoprolol. Patient was admitted here from 03/19 through 03/20 due to septic emboli with cavitary lesion, endocarditis with perforated tricuspid valve severe tricuspid regurgitation with vegetations on the anterior and posterior leaflets. Patient was subsequently transferred to the [facility]. Patient seen and examined at bedside. Has an intake tomorrow at [facility]. No chest pain, no shortness of breath, no nausea. General: non toxic, no distress, appears at stated age Derm: warm, dry, multiple tattoos Head: atraumatic, normocephalic, symmetric Eyes: EOMI, no lid lag, anicteric sclera Mouth: no lip lesion, mucus membranes moist Cardiovascular: S1S2 reg, no murmur, positive posterior tibial pulse bilateral, Lungs: CTA bilateral, no rhonchi, no rales , no accessory muscle use Abdominal: soft, nontender to palpation, no guarding, no appreciable organomegaly Ext: no gross muscle atrophy, no edema, no contractures Neuro: CN II-XI grossly intact, no focal neuro deficits Psych: Alert, oriented, appropriate affect Assessment/Plan: Unitentional Overdose with hx of IVDA - social work consult - encourage abstinence A fib wtih RVR on arrival Elevated Troponin Recent infective endocarditis of tricuspid valve Systolic cardiomyopathy with ejection fraction 40-45% - cardio recs- On beta shefali and ACEI - CHADSVASC 0 -Obtain records from [facility] - tele - outpatient f/u at [facility] SIRS criteria, resolved lactic acidosis, resolved - await blood cultures X 48 hours Hep C - outpatient follow-up DVT prophylaxis: [place] Discussed with: patient, nursing Anticipated discharge date:likely in AM Anticipated discharge place: home A total of 25 minutes was spent on the care of this complex patient more than 50% of the time was spent in counseling and care coordination. Objective - Vital Signs Vital signs: Vital Signs Temp 98.0 F 05/11/21 08:00 Pulse 78 05/11/21 16:44 Resp 14 05/11/21 16:44 BP 136/97 05/11/21 16:44 Pulse Ox 98 05/11/21 16:44 Intake & Output 05/10/21 05/11/21 05/11/21 18:59 06:59 18:59 Intake Total 360 420 Balance 360 420 Intake: Oral 360 420 Other: # Voids 2 1 - Labs CBC & Chem 7: 05/11/21 06:48 05/11/21 06:48 Labs: Abnormal Lab Results - Last 24 Hours (Table) 05/11/21 05/11/21 Range/Units 06:48 06:48 Hgb 12.6 L (13.0-17.5) gm/dL RDW 15.7 H (11.5-15.5) % Carbon Dioxide 31 H (22-30) mmol/L Microbiology - Last 24 Hours (Table) 05/09/21 06:50 Blood Culture - Preliminary Blood No Growth after 48 hours 05/09/21 06:57 Blood Culture - Preliminary Blood No Growth after 48 hours
[2021-05-11] MEDS: ASPIRIN 81 MG PO SCH (20:20)
[2021-05-12] MEDS: APIXABAN 5 MG TAB PO SCH (09:42)
[2021-05-12] MEDS: METOPROLOL TARTRATE 12.5 MG TAB PO SCH (09:42)
--- NOTE | 2021-05-12 10:29 | P.PN ---
Subjective Progress Note Date: 05/12/21 Principal diagnosis: Paroxysmal atrial fibrillation The patient is a 36-year-old patient with history of hepatitis C as well as history of endocarditis who we consulted for paroxysmal atrial fibrillation. He is known to have severe tricuspid regurgitation and he is currently in process of having tricuspid valve repair/replacement at the [facility]. The patient was seen this morning. He is stable from a cardiovascular standpoint of view. He is hemodynamically stable and he is on oral anticoagulation. From the cardiovascular standpoint of view, the patient can be discharged. Objective - Vital Signs Vital signs: Vital Signs Temp 98.1 F 05/12/21 04:11 Pulse 66 05/12/21 04:11 Resp 16 05/12/21 04:11 BP 131/88 05/12/21 04:11 Pulse Ox 97 05/12/21 04:11 Intake & Output 05/11/21 05/12/21 05/12/21 18:59 06:59 18:59 Intake Total 1140 240 118 Balance 1140 240 118 Intake: Oral 1140 240 118 - Constitutional General appearance: Present: no acute distress - Respiratory Respiratory: bilateral: CTA - Cardiovascular Rhythm: regular Heart sounds: normal: S1, S2 Abnormal Heart Sounds: Present: systolic murmur - Labs CBC & Chem 7: 05/11/21 06:48 05/11/21 06:48 Labs: Microbiology - Last 24 Hours (Table) 05/09/21 06:57 Blood Culture - Preliminary Blood No Growth after 72 hours 05/09/21 06:50 Blood Culture - Preliminary Blood No Growth after 72 hours Assessment and Plan Assessment: Assessment #1 paroxysmal atrial fibrillation #2 history of endocarditis #3 history of drug abuse Plan #1 continue the current dose of beta shefali #2 continue oral anticoagulation #3 the patient can be discharged
[2021-05-12 10:32] VITALS: RESP 17; TEMP 98
[2021-05-12 12:05] VITALS: BP 122/78; PULSE 77
--- NOTE | 2021-05-12 14:19 | P.DS ---
Providers Date of admission: 05/09/21 04:38 Expected date of discharge: 05/12/21 Attending physician: Liliana Ivan DO Consults: 05/09/21 04:38 Consult Physician Routine Consulting Provider: Amilcar Price Consult Reason/Comments: afibNEW,hoVegetation Do you want consulting provider notified?: Yes Primary care physician: Stated None Hospital Course: Discharge Diagnosis: Unitentional Overdose with hx of IVDA A fib wtih RVR on arrival Elevated Troponin Recent infective endocarditis of tricuspid valve Systolic cardiomyopathy with ejection fraction 40-45% SIRS criteria, resolved lactic acidosis, resolved Hep C Hospital Course: Patient is a 36-year-old male with a history of IV drug use in the past, hepat itis C, tricuspid valve endocarditis, and septic pulmonary emboli who presented to the hospital via EMS after being found unresponsive. Patient was admitted here from 03/19 through 03/20 due to septic emboli with cavitary lesion, endocarditis with perforated tricuspid valve severe tricuspid regurgitation with vegetations on the anterior and posterior leaflets. Patient was subsequently transferred to the [facility]. He was given intranasal Narcan with EMS. On arrival his pulse was 120. Initial laboratory analysis showed white blood cell count of 13.7, plasma lactic acid of 2.5, and ALT of 51. Initial EKG revealed A. fib with rapid ventricular response. Patient was given a bolus of Cardizem and started on Cardizem drip. He also had a clonidine patch applied. Patient did have a Cardizem drip started at 5 and apparently converted into normal sinus rhythm while in the ER. Due to concerns for sepsis and prior history of tricuspid valve endocarditis arrangements were made for admission. He was seen by cardiology. He underwent echocardiogram which showed an ejection fraction of 40-45% with tricuspid vegetation that was normal prior. He was started on lisinopril in addition to metoprolol. He did well and was determined stable for discharge home. Patient seen and examined at bedside. No chest pain, no shortness of breath, no nausea, no diarrhea Vital signs reviewed and stable. General: non toxic, no distress, appears at stated age Derm: warm, dry Head: atraumatic, normocephalic, symmetric Eyes: EOMI, no lid lag, anicteric sclera Mouth: no lip lesion, mucus membranes moist Cardiovascular: S1S2 reg, no murmur, positive posterior tibial pulse bilateral, Lungs: CTA bilateral, no rhonchi, no rales , no accessory muscle use Abdominal: soft, nontender to palpation, no guarding, no appreciable organomegaly Ext: no gross muscle atrophy, no edema, no contractures Neuro: CN II-XI grossly intact, no focal neuro deficits Psych: Alert, oriented, appropriate affect A total of 32 minutes of time were spent preparing this complex discharge summary . Patient Condition at Discharge: Good Plan - Discharge Summary Discharge Rx Participant: No New Discharge Prescriptions: New Aspirin 81 mg PO HS #30 tab lisinopriL [Zestril] 2.5 mg PO DAILY #30 tab Apixaban [Eliquis] 5 mg PO BID #60 tab Metoprolol Tartrate [Lopressor] 12.5 mg PO BID #60 tab Discharge Medication List Apixaban [Eliquis] 5 mg PO BID #60 tab 05/12/21 [Rx] Aspirin 81 mg PO HS #30 tab 05/12/21 [Rx] Metoprolol Tartrate [Lopressor] 12.5 mg PO BID #60 tab 05/12/21 [Rx] lisinopriL [Zestril] 2.5 mg PO DAILY #30 tab 05/12/21 [Rx] Follow up Appointment(s)/Referral(s): None,Stated [Primary Care Provider] - 1-2 days Amilcar Price MD [STAFF PHYSICIAN] - 1 Week ( pt.states he sees a parts chaser at [facility] and will make his own appt. ) Patient Instructions/Handouts: A-fib (Atrial Fibrillation) (DC) Activity/Diet/Wound Care/Special Instructions: Activity: as tolerated Diet: heart healthy Special Instructions: Continue to follow-up with your cardiac and infectious disease teams from [facility] Discharge Disposition: HOME SELF-CARE
== END 2021-05-12 12:19 | disposition home or self-care (01) | DRG 918 ==
LOC: EC 02:15 → 3SCARD 04:38
PROVIDERS: ADMIT Internal Medicine; ATTEND Internal Medicine
DX: T40.1X2A Poisoning by heroin, intentional self-harm, initial encounter (principal); E87.2 Acidosis; I42.8 Other cardiomyopathies; Z20.822 Contact with and (suspected) exposure to COVID-19; F12.10 Cannabis abuse, uncomplicated; F15.10 Other stimulant abuse, uncomplicated; I25.10 Atherosclerotic heart disease of native coronary artery without angina pectoris; F11.10 Opioid abuse, uncomplicated; Z71.51 Drug abuse counseling and surveillance of drug abuser; E11.9 Type 2 diabetes mellitus without complications; R77.8 Other specified abnormalities of plasma proteins; R91.8 Other nonspecific abnormal finding of lung field; B19.20 Unspecified viral hepatitis C without hepatic coma; F22 Delusional disorders; F32.A Depression, unspecified; F41.9 Anxiety disorder, unspecified; I07.1 Rheumatic tricuspid insufficiency; I48.0 Paroxysmal atrial fibrillation; Z79.01 Long term (current) use of anticoagulants; Z86.711 Personal history of pulmonary embolism; Z87.891 Personal history of nicotine dependence; Z86.79 Personal history of other diseases of the circulatory system
CPT/HCPCS: 36415; 71045; 80048; 80053; 80306; 83605; 83735; 83880; 84100; 84145; 84443; 84484; 85025; 85027; 85379; 85610; 85730; 87040; 87635; 93005; 93308; 96361; 96374; 96375; 99285